=== PATIENT | female | born 1975 | race Caucasian/White ===

== ENCOUNTER 2024-02-04 06:00 | Day surgery (SDC) | payer OTHER, SELFPAY ==
[2024-02-04] MEDS: Lactated Ringers 1,000 ML 15 ML IV (06:29)
[2024-02-04 06:30] VITALS: BP 165/85; PULSE 82; RESP 16; TEMP 36.1; O2SAT 99; BMI 27.5
--- NOTE | 2024-02-04 07:11 | PCM.HP.BLA ---
History and Physical Date of Admission: 02/04/24 [facility] [address] [place] [address] OFFICE VISIT Date of Service: 12/18/23 MR#: [id number] Acct: [id number] Name: ELSIE HOWE Rep #: [id number] : 1975 Provider: Dr. Elia Fair DO Age/Sex: 48/F Location[place] [facility] [place] Status: Signed Intake Vital Signs 12/18/2407:35 Height 5 ft 3 in Weight: 166 lb 2 oz BMI 29.4 Intake Visit Reasons: RIGHT WRIST Accompanied by: Self Is patient in pain?: Yes Pain scale (1-10): 4 Allergies No Known Allergies Allergy (Unverified 12/18/23 08:41) Medications certolizumab pegol 400 mg/2 mL (200 mg/mL x2) subcutaneous syringe kit (Cimzia) 200 mg subcut Q2W 12/18/23 [History Confirmed 12/18/23] folic acid 1 mg tablet 1 mg PO BID 12/18/23 [History Confirmed 12/18/23] methotrexate sodium 2.5 mg tablet mg PO 5XW 12/18/23 [History Confirmed 12/18/23] PFSH Family History (Updated 12/18/23 @ 08:43 by Shakira Jones) Grandmother Arthritis Social History household members: other details: Roommate Smoking Status: Current every day smoker Smokeless tobacco user: other alcohol intake: current alcohol intake frequency: a few times a week HPI RIGHT WRIST Details: This documentation accurately reflects the service provided and the decisions made by me, Dr. Elia Fair, 12/18/23 0758. Part of today?s visit was documented by Shakira Queen ATC, acting as scribe. ELSIE HOWE is a 48 year old F here today for right wrist pain. Patient states this has been bothering her for about over a year but is gradually getting worse. Patient does get numbness and tingling that is mainly in the thumb, index and middle finger. She denies any numbness/tingling into the forearm at all. She does have itchiness in the palm of the hand into the fingers. She states she wears wrist braces on both wrists when she is sleeping. She states the braces does give her some relief as it keeps it from falling asleep and going numb as bad. She was referred by Dr. Lundy. She did have an EMG done at [place]. The right wrist is much worse. she is RHD.She denies any physical therapy for the wrists. She has had previous injections in the right wrist but none recently. She states she does have some shoulder issues as well. She denies any previous injury or surgery to the wrist at all. Patient is right hand dominant. She did have a prescription for medical marijuana but it and then she takes Aleve when needed for pain. She did recently get an injection in the left carpal tunnel by Dr. Conley Patient has been bracing at night for over a year now, it does provide some relief. Ortho Exam General General: Yes no acute distress Neurologic: Yes alert and Yes oriented x3 Psychologic: Yes reasonable and appropriate Right Wrist/Hand Skin/Wound: Yes CDI, No Swelling, No Ecchymosis and Yes capillary refill normal Right Wrist: Yes ROM-Extension 0-60 (85), ROM-Flexion 0-80 (80), ROM-Pronation 0-80, ROM-Supination 0-90, Durken's Test and Phalen's; No Tinel's WRIST: no atrophy noted wrist ext 85 wrist flex 80 Left Wrist/Hand Skin/Wound: No Swelling, No Ecchymosis and Yes capillary refill normal Left Wrist: Yes ROM-Extension 0-60, Yes ROM-Flexion 0-80, Yes ROM-Pronation 0-80, Yes ROM-Supination 0-90, Yes Durken's Test and Yes Phalen's; No Tinel's, No Thenar Atrophy and No Hypothenar Atrophy Head: Normocephalic Atraumatic Chest: symmetrical rise, non-labored breathing, no audible wheeze Abdomen: no guarding, non-rigid Supplemental Info 12/06/2023 EMG bilateral upper extremity: Right absent median sensory response at the thumb and prolonged latency median nerve motor response consistent with moderate to severe carpal tunnel. Left prolonged latency of the median motor and sensory responses consistent with moderate left carpal tunnel. Coding Level of Care Code Off vis,new,level 3 Diagnoses Carpal tunnel syndrome, bilateral G56.03 Assessment and Plan Assessment and Plan (1) Carpal tunnel syndrome, bilateral: Status: Acute Medications: New folic acid 1 mg PO BID methotrexate sodium PO 5XW Plan EMG shows that she has severe carpal tunnel in the right wrist. Because of the severity and how long it has bothered her we recommend going forward with the carpal tunnel surgery. Explained the surgery to the patient and what the procedure would be like. Risk benefits and alternative of surgery including risk of bleeding infection nerve artery tissue damage need for further surgery continued pain incisional hypersensitivity and continued symptoms are risk, I explained is not uncommon to have soreness in the area for 3 to 4 months after the surgery, explained most people do not need therapy unless the fingers get really stiff, then she would need to go to physical therapy, she is able to stretch out the fingers and make a fist, doing this right away tends to make recovery quicker, cannot lift anything over 0.5pound for the first 2 weeks, then 5 pounds for 1 week. She should be prepared for 6 weeks of restrictions with her job since she does lift a lot. If she would like to have the other wrist done at a later point she could go forward with that. She does have rheumatoid arthritis and is on methotrexate which she can continue through surgery however I would like to her to stop her Cimzia 4 weeks before surgery her next dose will be 12/29/2023 as this is given every 2 weeks she can take this dose but then will hold the medication until 2 weeks postoperatively we will tentatively schedule surgery February 04, 2024. I did instruct her to discuss holding this medication and make sure is okay with Dr. Conley when she sees her in the beginning of January. Explained the surgery is out patient procedure and she would need a ride home after surgery. Follow up in 2 weeks postop or sooner if pain, swelling, numbness or associated symptoms, or concerns develop. All questions answered. Patient in agreement of plan. 12/18/23 0922 <Electronically signed by Elia Fair DO> Date Elia Fair DO Cosigner Signature: Date (if applicable) I have examined the patient and the H&P has been reviewed. There are no clinical changes since date of exam.
[2024-02-04] MEDS: Cefazolin 2 GM in 0.9% Normal Saline (100mL Bag) 100 ML IV (07:23)
[2024-02-04] MEDS: Bupiv/Epi 0.25% 30 ML Vial (07:42)
[2024-02-04 07:53] VITALS: BP 142/74; BP 165/85; PULSE 72; RESP 18; TEMP 36.5; O2SAT 99
--- NOTE | 2024-02-04 07:53 | OP.PCM_ITS ---
Operative Report Date of Procedure: 02/04/24 Preoperative diagnosis; right carpal tunnel syndrome Postoperative diagnosis; same Procedure: Right open carpal tunnel release Anesthesia: Local with MAC Tourniquet time; 11 minutes 250 mm Hg Complications: None Indication for procedure; This is a 48-year-old female with long-standing s ymptoms consistent with carpal tunnel syndrome the patient did have electrodiagnostic evidence of this and has failed conservative treatment. Risks benefits and alternatives were reviewed including risks of bleeding infection nerve artery tissue damage need for further surgery and continued pain and symptoms, hypersensitivity to scar and Pillar pain. Procedure; The patient was met in the preoperative holding area the operative extremity was identified by both patient and physician and was marked the patient was met by anesthesia and brought back to the operating room and transferred to the operating table in the supine position. Anesthesia was started. A well-padded tourniquet was placed on the operative upper extremity. The patient was prepped and draped in the usual sterile fashion. A timeout was called to ensure the proper patient procedure and extremity were being contemplated. 0.5 percent lidocaine with epinephrine was injected into the incisional area. An Esmarch was used to exsanguinate the extremity. The tourniquet was inflated to 250 mmHg. A midline incision was made with a 15 blade scalpel between the thenar and hypothenar eminence. This was carried down through the skin and subcutaneous tissue. Anne Marie retractors were then used, a deep blade scalpel was used to make a deep incision in the palmar aponeurosis. The anne marie retractors were then placed deep to this and the transverse carpal ligament was identified a perforation was made with a scalpel and a Littler scissors were used to complete the release of the transverse carpal ligament distally under direct visualization with the tips facing ulnarly until the perivascular fat was reached. Then turning our attention proximally using a tension slide technique the proximal extent of the transverse carpal ligament was released . There was noted to be hourglass configuration to the median nerve and hypertrophy of the transverse carpal ligament without other findings. The wound was thoroughly irrigated and was closed with 4-0 nylon vertical mattress stitches. Dressing was applied in the form of xeroform 4 x 4, web roll and an ronan wrap. Tourniquet was let down there is no intraoperative complications patient tolerated the procedure well and was transferred to the PACU. All counts were correct.
--- NOTE | 2024-02-04 07:54 | DCINST_ITS ---
Discharge Instructions Diet Discharge Diet: No restrictions Dressing / Incision Call your doctor if you observe: Shortness of breath and Chest pain Additional Dressing/Incision Instructions:: Ice and elevate operative extremity next 72 hours. Keep dressing on clean and dry for 48 hours then may remove and allow warm soapy water to rinse over incision but do not submerge until sutures are out. Then apply bandaid over incision and change daily. encourage finger range of motion. Not lift more than 1/2 pound. Minimize narcotic use only as needed and directed, may use OTC NSAID and Tylenol to supplement/substitute for pain control. Follow Up Care Please Follow Up With: Elia Fair DO When: 2 weeks Test Results: Test results from this visit will be discussed in further detail at your follow- up appointment, if applicable. Discharge Plan Admission Primary Reason for Your Visit: Right carpal tunnel release Attending Provider: Elia Fair Primary Care Provider: Olya Rodgers Discharge Orders/Prescriptions Prescriptions: New oxycodone 5 mg tablet 5 - 10 mg PO Q4H PRN (Reason: pain) 3 Days Qty: 10 0RF cephalexin [cephalexin] 500 mg capsule 1,000 mg PO Q8 Qty: 4 0RF Rx Instructions: take 2 tabs at 8:00 pm and 2 tabs after 5 am when you wake up Continued folic acid 1 mg tablet 1 mg PO BID methotrexate sodium 2.5 mg tablet 12.5 mg PO BONILLA Held Cimzia 400 mg/2 mL (200 mg/mL x 2) syringe kit 200 mg subcut Q2W Hold Instructions: Resume on 02/18/24. Patient Comments: STOPPPED TEMPORARILY FOR SURGERY Referrals / Follow Up: Olya Rodgers DO [Primary Care Provider] - Disposition Disposition (needs filled in before D/C Order can be placed): Home, Self Care
[2024-02-04 07:55] VITALS: BP 133/73; BP 165/85; PULSE 66; RESP 16; O2SAT 98
[2024-02-04 08:03] VITALS: BP 139/68; BP 165/85; PULSE 68; RESP 18; O2SAT 99
[2024-02-04 08:09] VITALS: BP 149/61; BP 165/85; PULSE 63; RESP 18; TEMP 36.3; O2SAT 98
== END 2024-02-04 09:03 | disposition home or self-care (01) ==
LOC: SDC 06:00 → AC 06:01
PROVIDERS: PCP Family Medicine; Referring Provider Orthopaedic Surgery; Visit Provider Orthopaedic Surgery
PROC: (CPT 64721; principal; 2024-02-04 07:15)
DX: G56.03 Carpal tunnel syndrome, bilateral upper limbs (principal); F17.290 Nicotine dependence, other tobacco product, uncomplicated
CPT/HCPCS: 64721; 01810; J7120

== ENCOUNTER 2024-03-10 05:54 | Day surgery (SDC) | payer OTHER, SELFPAY ==
[2024-03-10 06:16] VITALS: BP 139/80; PULSE 73; RESP 16; TEMP 36.3; O2SAT 100; BMI 29.5
[2024-03-10] MEDS: Lactated Ringers 1,000 ML 15 ML IV (06:19)
--- NOTE | 2024-03-10 07:11 | HP.PCM_ITS ---
History and Physical Date of Admission: 03/10/24 [facility] [address] [place] [address] OFFICE VISIT Date of Service: 02/17/24 MR#: [id number] Acct: [id number] Name: ELSIE HOWE Rep #: [id number] : 1975 Provider: Dr. Elia Fair DO Age/Sex: 48/F Location: [facility] [place] Status: Signed Intake Vital Signs 12/18/2407:35 02/03/2406:30 Height 5 ft 3 in 5 ft 4 in Intake Visit Reasons: right wrist Is patient in pain?: No Allergies No Known Allergies Allergy (Verified 02/17/24 09:06) Medications certolizumab pegol 400 mg/2 mL (200 mg/mL x2) subcutaneous syringe kit (Cimzia) 200 mg subcut Q2W 12/18/23 [History Confirmed 02/17/24] folic acid 1 mg tablet 1 mg PO BID 12/18/23 [History Confirmed 02/17/24] methotrexate sodium 2.5 mg tablet 12.5 mg PO BONILLA 12/18/23 [History Confirmed 02/17/24] PFSH Medical History (Updated 02/04/24 @ 07:[address] Elia Fair DO) Alcohol use Anxiety History of edema Lupus Post-menopausal Rheumatoid arthritis Smoker Wears contact lenses Surgical History (Updated 01/28/24 @ 08:11 by Zohreh Salas) No history of previous surgery Family History Grandmother Arthritis Social History household members: other details: Roommate Smoking Status: Current every day smoker tobacco type: e-cigarettes Smokeless tobacco user: other alcohol intake: current alcohol intake frequency: a few times a week HPI right wrist Details: This documentation accurately reflects the service provided and the decisions made by me, Dr. Elia Fair DO 02/17/24 0803. Part of today?s visit was documented by Betzy Escamilla ATC, acting as scribe. ELSIE HOWE is a 48 year old F here today for s/p Right open carpal tunnel release dos 02/04/24. Patient notes that she is doing very well. Patient denies any pain currently. She denies any numbness or tingling. Patient notes that her incision is healing with no redness or drainage. She denies any pain medicaitons. Patient would also like to discuss her left wrist she has similar symptoms in the left. Ortho Exam General General: Yes no acute distress Neurologic: Yes alert and Yes oriented x3 Psychologic: Yes reasonable and appropriate Right Wrist/Hand Skin/Wound: Yes healing, Yes suture/paula removed, No Swelling and No Ecchymosis WRIST: good finger and wrist range of motion Left Wrist/Hand Skin/Wound: No Swelling, No Ecchymosis and Yes capillary refill normal Left Wrist: Yes ROM-Extension 0-60, Yes ROM-Flexion 0-80, Yes ROM-Pronation 0-8 0, Yes ROM-Supination 0-90, Yes Durken's Test and Yes Phalen's; No Tinel's, No Thenar Atrophy and No Hypothenar Atrophy Right Foot/Ankle Skin/Wound: Yes suture/paula removed Head: Normocephalic Atraumatic Chest: symmetrical rise, non-labored breathing, no audible wheeze Abdomen: no guarding, non-rigid Supplemental Info 12/06/2023 EMG bilateral upper extremity: Right absent median sensory response at the thumb and prolonged latency median nerve motor response consistent with moderate to severe carpal tunnel. Left prolonged latency of the median motor and sensory responses consistent with moderate left carpal tunnel. Coding Level of Care Code Off vis,est,level 3 Diagnoses Carpal tunnel syndrome, bilateral G56.03 Assessment and Plan Assessment and Plan (1) Carpal tunnel syndrome, bilateral: Status: Acute Plan She might continue to have soreness over the incision. She is able to lift 5 pounds for this week and then may progress to lifting as she tolerates. Patient should continue to wash her incision daily. Patient may proceed with a left carpal tunnel release. She would like to proceed at 6 weeks post op. We will schedule her for March 10. Follow up for 2 week post op or sooner if pain, swelling, numbness or associated symptoms, or concerns develop. All questions answered. Patient in agreement of plan. 02/17/24 0922 <Electronically signed by Elia Fair DO> Date Elia Manjula DO Bruno Signature: Date (if applicable) I have examined the patient and the H&P has been reviewed. There are no clinical changes since date of exam.
[2024-03-10] MEDS: Cefazolin 2 GM in 0.9% Normal Saline (100mL Bag) 100 ML IV (07:30)
[2024-03-10] MEDS: Bupiv/Epi 0.25% 30 ML Vial (07:53)
--- NOTE | 2024-03-10 08:01 | DCINST_ITS ---
Discharge Instructions Diet Discharge Diet: No restrictions Dressing / Incision Call your doctor if you observe: Shortness of breath and Chest pain Additional Dressing/Incision Instructions:: Ice and elevate operative extremity next 72 hours. Keep dressing on clean and dry for 48 hours then may remove and allow warm soapy water to rinse over incision but do not submerge until sutures are out. Then apply bandaid over incision and change daily. encourage finger range of motion. Not lift more than 1/2 pound. Minimize narcotic use only as needed and directed, may use OTC NSAID and Tylenol to supplement/substitute for pain control. Follow Up Care Please Follow Up With: Elia Fair DO When: 2 weeks Test Results: Test results from this visit will be discussed in further detail at your follow- up appointment, if applicable. Discharge Plan Admission Primary Reason for Your Visit: Left carpal tunnel release Attending Provider: Elia Fair Primary Care Provider: Olya Rodgers Instructions Print Language: Uzbek Discharge Orders/Prescriptions Prescriptions: New oxycodone 5 mg tablet 5 - 10 mg PO Q4H PRN (Reason: pain) 3 Days Qty: 10 0RF Held Cimzia 400 mg/2 mL (200 mg/mL x 2) syringe kit 200 mg subcut Q2W Hold Instructions: Resume on 03/25/24. Patient Comments: STOPPPED TEMPORARILY FOR SURGERY No Action folic acid 1 mg tablet 2 mg PO DAILY methotrexate sodium 2.5 mg tablet 12.5 mg PO BONILLA Referrals / Follow Up: Olya Rodgers DO [Primary Care Provider] - Disposition Disposition (needs filled in before D/C Order can be placed): Home, Self Care
--- NOTE | 2024-03-10 08:01 | OP.PCM_ITS ---
Operative Report Date of Procedure: 03/10/24 Preoperative diagnosis; left carpal tunnel syndrome Postoperative diagnosis; same Procedure: Left open carpal tunnel release Anesthesia: Local with MAC Tourniquet time; 10 minutes 250 mm Hg Complications: None Indication for procedure; This is a 49-year-old female with long-standing sym ptoms consistent with carpal tunnel syndrome the patient did have electrodiagnostic evidence of this and has failed conservative treatment. Risks benefits and alternatives were reviewed including risks of bleeding infection nerve artery tissue damage need for further surgery and continued pain and symptoms, hypersensitivity to scar and Pillar pain. Procedure; The patient was met in the preoperative holding area the operative extremity was identified by both patient and physician and was marked the patient was met by anesthesia and brought back to the operating room and transferred to the operating table in the supine position. Anesthesia was started. A well-padded tourniquet was placed on the operative upper extremity. The patient was prepped and draped in the usual sterile fashion. A timeout was called to ensure the proper patient procedure and extremity were being contemplated. 0.5 percent lidocaine with epinephrine was injected into the incisional area. An Esmarch was used to exsanguinate the extremity. The tourniquet was inflated to 250 mmHg. A midline incision was made with a 15 blade scalpel between the thenar and hypothenar eminence. This was carried down through the skin and subcutaneous tissue. Anne Marie retractors were then used, a deep blade scalpel was used to make a deep incision in the palmar aponeurosis. The anne marie retractors were then placed deep to this and the transverse carpal ligament was identified a perforation was made with a scalpel and a Littler scissors were used to complete the release of the transverse carpal ligament distally under direct visualization with the tips facing ulnarly until the perivascular fat was reached. Then turning our attention proximally using a tension slide technique the proximal extent of the transverse carpal ligament was released . There was noted to be hypertrophy of the transverse carpal ligament without other findings. The wound was thoroughly irrigated and was closed with 4-0 nylon vertical mattress stitches. Dressing was applied in the form of xeroform 4 x 4, web roll and an ronan wrap. Tourniquet was let down there is no intraoperative complications patient tolerated the procedure well and was transferred to the PACU. All counts were correct.
[2024-03-10 08:05] VITALS: BP 116/67; BP 139/80; PULSE 62; RESP 18; TEMP 36.1; O2SAT 100
[2024-03-10 08:10] VITALS: BP 129/68; BP 139/80; PULSE 59; RESP 18; O2SAT 100
[2024-03-10 08:15] VITALS: BP 134/74; BP 139/80; PULSE 53; RESP 16; TEMP 36.1; O2SAT 100
[2024-03-10 08:39] VITALS: BP 139/80
== END 2024-03-10 08:40 | disposition home or self-care (01) ==
LOC: SDC 05:54 → AC 05:56
PROVIDERS: PCP Family Medicine; Referring Provider Orthopaedic Surgery; Visit Provider Orthopaedic Surgery
PROC: (CPT 64721; principal; 2024-03-10 07:15)
DX: G56.03 Carpal tunnel syndrome, bilateral upper limbs (principal); F17.290 Nicotine dependence, other tobacco product, uncomplicated
CPT/HCPCS: 64721; 01810; J7120

== ENCOUNTER → 2025-02-27 | Outpatient (CLI) | payer OTHER, SELFPAY ==
--- NOTE | 2025-02-27 08:00 | MRI_ITS ---
PROCEDURE: UPPER EXT JOINT ONLY(ROUTINE) 02/27/2025 REASON FOR EXAM: PAIN TECHNIQUE: MRI of the upper Extremity. Multiplanar and multisequence images were obtained without IV contrast administration. COMPARISON: COMPARISON : FINDINGS: The supraspinatus tendon shows intrasubstance high signal with total interruption of its fibers forming a gap measuring about 3.6 cm in width. Thickening and intrasubstance high signal of the subscapularis tendon with partial fibers interruption. Intrasubstance high signal of the infraspinatus tendon with no evidence of complete fibers interruption. The teres minor tendon appears intact. High signal of the long head of biceps tendon with ill definition intra- articular segment. Fluid signal distending its sheath. No obvious glenoid labral tears. Advanced degenerative arthropathic changes of the acromioclavicular joint evident by marginal osteophytic lipping, cortical irregularities and subcortical marrow edema of its opposing articular surfaces with hypertrophied edematous joint capsule. Marginal lipping of the glenohumeral articular surface with mild superior subluxation of the humeral head. Mild glenohumeral joint effusion Fluid signal distending the subcoracoid and subacromial/subdeltoid bursa. Thickening and edema signal of the rotator interval capsule and inferior glenohumeral ligament. Focal cortical irregularities and subcortical pseudocysts & marrow edema of the humeral head/greater tuberosity. No marrow infiltrative lesions. The neurovascular bundles appear unremarkable. 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 Supraspinatus tendonitis with full thickness tear. Subscapularis tendonitis with partial thickness tear. Infraspinatus tendonitis. Tear on top of tendonitis of the long head of biceps tendon. Glenohumeral degenerative arthropathy with joint effusion & subcoracoid and sub acromial/subdeltoid bursitis. Reading [facility] [address]
== END | disposition home or self-care (01) ==
LOC: MRI 07:29
PROVIDERS: PCP Family Medicine; Referring Provider Orthopaedic Surgery; Visit Provider Orthopaedic Surgery
DX: M25.511 Pain in right shoulder (principal)
CPT/HCPCS: 73221

== ENCOUNTER 2025-04-21 06:24 | Day surgery (SDC) | payer OTHER, SELFPAY ==
--- NOTE | 2025-04-13 08:42 | EKG12_ITS ---
Test Reason : PREOP Blood Pressure : */* mmHG Vent. Rate : 75 BPM Atrial Rate : 75 BPM P-R Int : 142 ms QRS Dur : 80 ms QT Int : 388 ms P-R-T Axes : 68 52 11 degrees QTcB Int : 433 ms Normal sinus rhythm Possible Left atrial enlargement Borderline ECG Confirmed by SUSAN DWYER, LIZANDRO ([id number]), editor at large LIBRADO GARCÍA ([id number]) on 04/14/2025 7:12:25 AM Referred By: Dilip Hope Confirmed By: LIZANDRO DAVIS MD
--- NOTE | 2025-04-13 20:50 | PAT.ANESEVAL ---
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 When Was Last Pacemaker Check QUESTION #4 FULL TEXT: You/Your Family Experience fever (hyperthermia) with Anesthesia Last Oral Intake Last Oral intake: Last Oral Intake NPO since Meds taken in AM with sips of water? Meds patient instructed to take am of surgery PONV PONV - spray machine loader: PONV - spray machine loader Female Yes 04/07/25 08:09 HX of Motion Sickness No 04/07/25 08:09 HX of N/V After Surgery No 04/07/25 08:09 Non-Smoker No 04/07/25 08:09 Duration of Surgery greater Yes 04/07/25 08:09 than 60 minutes Number of Risk Factors 2 04/07/25 08:09 PONV Score Moderate Risk 04/07/25 08:09 Height & Weight Height & Weight: Anesthesia: Height & Weight Height 5 ft 4 in 03/15/25 08:58 Respiratory Assessment Respiratory Assessment - spray machine loader: Respiratory Tract Infection Hx - spray machine loader Hx Respiratory Tract Infection No 04/07/25 08:09 STOP Sleep Apnea STOP Sleep Apnea - spray machine loader: STOP Sleep Apnea - spray machine loader Hx Hypertension No 04/07/25 08:09 Hx Sleep Apnea No 04/07/25 08:09 CPAP BIPAP Do you snore loudly (louder No 04/07/25 08:09 than talking or can be heard Do you often feel tired/ No 04/07/25 08:09 fatigued/ sleepy during daytime? Has anyone observed you stop No 04/07/25 08:09 breathing during sleep? STOP Results Negative 04/07/25 08:09 QUESTION #5 FULL TEXT : Do you snore loudly (louder than talking or can be heard through closed doors)? 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 Specify any problems Hx of Preganancy in last 3 No 04/07/25 08:09 Months Nurse Filling Out Transfusion VCHRISTIN 04/07/25 08:09 & Questions: Date: 04/07/25 04/07/25 08:09 Time: 08:10 04/07/25 08:09 Patient unable to answer at this time (ie. confused, unrespo /Reproduction History /Reproductive History - spray machine loader: /Reproductive Hx- spray machine loader Hx Now No 04/07/25 08:09 Gestational Age (in weeks): EDC: Hx Hx Para Hx Section SAB No 04/07/25 08:09 PFSH Medical History Wears contact lenses Post-menopausal Anxiety Alcohol use Rheumatoid arthritis Lupus Smoker History of edema Home Medications ?Medication ?Instructions ?Recorded ?Last Taken ?Type certolizumab pegol 400 mg/2 mL 200 mg subcut Q2W 12/18/23 03/28/25 History (200 mg/mL x2) subcutaneous syringe kit (Cimzia) Held on 03/10/24. Instructions: Resume on 03/25/24. folic acid 1 mg tablet 2 mg PO DAILY 12/18/23 Unknown History methotrexate sodium 2.5 mg tablet 12.5 mg PO BONILLA 12/18/23 03/28/25 History prednisone 10 mg tablet 10 mg PO QDAY PRN RA 01/04/25 Unknown History tramadol 50 mg tablet 50 mg PO TID PRN pain 01/04/25 Unknown History Allergy/AdvReac Type Severity Reaction Status Date / Time No Known Allergies Allergy Verified 04/07/25 08:05 Family History Grandmother Arthritis Surgical History (Updated 04/07/25 @ 08:09 by Kristin Brown) History of carpal tunnel surgery of left wrist History of carpal tunnel surgery of right wrist Social History household members: other details: Roommate Smoking Status: Current every day smoker tobacco type: e-cigarettes Smokeless tobacco user: other alcohol intake: current alcohol intake frequency: a few times a week Audit: Pertinent Findings Pertinent Findings EKG Perinent findings: April 13, 2025. Normal sinus rhythm. Possible left atrial enlargement. Recommendation Anesthesia Recommendation Anesthesia recommendation: OPTIMIZED for anesthesia
[2025-04-21] VITALS (7 sets, daily range): BP systolic 139–149; BP diastolic 77–94; PULSE 72–89; RESP 16–18; TEMP 36.1–36.9; O2SAT 96–100; BMI 31.4
--- OUTSIDE RECORDS SUMMARY | 2025-04-21 06:27 | XMS RPT_ITS | CCD ---
Author Organization [facility] Care Team Providers Care Proposal Manager Name Role Phone KELLI LANCE DO Primary Care Physician ([phone] Dr. Elia Fair Attending Provider [phone]) Dr. Elia Fair Referring Provider [phone]) Dr. Elia Fair Other Provider [phone])- Dr. Kelli Lance Primary Care Provider KELLI LANCE DO Primary Care Physician ([phone]) KELLI LANCE DO Primary Care Unavailable PREETI DWYER, DR ARANDA Attending Manuel CONLEY MD, DR ARANDA Attending UnavailKELLI Meyers DO Primary Care Unavailable Dr. Kelli Lance DO Primary Care Provider [phone] Dr. Kelli Lance DO Referring Provider Dr. Elia Fair DO Attending Provider Dr. Curry Castrejon MD Attending Provider [phone] Dr. Elia Fair DO Referring Provider PREETI DWYER, DR ARANDA Attending UnavailKELLI Meyers DO Primary Care Unavailable Dilip Hope MD Attending Provider [phone] Elia Fair Attending Unavailable Kelli Lance Primary Care Unavailable Kelli Lance Referring Unavailable Kelli Lance Primary Care Unavailable Curyr Castrejon Attending Unavailable Elia Fair Attending Unavailable Kelli Lance Referring Unavailable Kelli Lance Primary Care Unavailable Elia Fair Attending Unavailable Kelli Lance Primary Care Unavailable Kelli Lance Referring Unavailable Dilip Hope Attending Unavailable Kelli Lance Referring Unavailable Kelli Lance Primary Care Unavailable Dilip Hope Attending Unavailable Dilip Hope Referring Unavailable Henrry Miller Consulting Unavailable Kelli Lance Primary Care Unavailable Elia Fair Attending Unavailable Elia Fair Referring Unavailable Kelli Lance Primary Care Unavailable Medications Current Medications Medication Drug Class(es) Dates Sig (Normalized) Sig (Original) 1 ml abatacept 125 mg/ml auto-injector (3 sources) Selective T Cell Costimulation Modulator Start: 04-24-2019 Orencia ClickJect 125 mg/mL subcutaneous solution Dose = 125 mg, Subcutaneous, qWeek, (rotate injection sites), 4 EA, 0 Refill(s), Syringe Start Date: 04/24/19 Status: Ordered Start: 04-24-2019 Orencia ClickJ ect 125 mg/mL subcutaneous solution Dose = 125 mg, Subcutaneous, qWeek, (rotate injection sites), 4 EA, 0 Refill(s), Syringe Start Date: 04/24/19 Status: Ordered 24 hr buPROPion hydrochloride 300 mg extended release oral tablet (6 sources) Aminoketone Start: 04-17-2022 take 1 tablet by mouth every hour, then take 1 tablet by mouth once daily in the evening buPROPion 150 mg/24 hours (XL) oral tablet, extended release Dose : 150 mg = 1 tab(s), Oral, qDay, in evening., # 90 tab(s), 3 Refill(s), Pharmacy: [facility] ([facility]), Depression, 161.5, cm, 04/17/22 8:02:00 EDT, Height, kg, 04/17/22 8:02:00 EDT, Dosing Weight Start Date: 04/17/22 Status: Ordered Start: 04-17-2022 take 1 tablet by demarcus th every hour, then take 1 tablet by mouth once daily in the morning buPROPion 300 mg/24 hours (XL) oral tablet, extended release Dose : 300 mg = 1 tab(s), Oral, qDay, in morning, # 90 tab(s), 1 Refill(s), Pharmacy: [facility] ([facility]), Depression, 161.5, cm, 04/17/22 8:02:00 EDT, Height, kg, 04/17/22 8:02:00 EDT, Dosing Weight Start Date: 04/17/22 Status: Ordered Start: 04-25-2021 take 1 tablet by demarcus th every hour, then take 1 tablet by mouth once daily in the evening buPROPion 150 mg/24 hours (XL) oral tablet, extended release Dose : 150 mg = 1 tab(s), Oral, qDay, in evening., # 90 tab(s), 1 Refill(s), Pharmacy: [facility]/pharmacy #[id number], Depression, 162.4, cm, 04/25/21 8:47:00 EDT, Height, kg, 04/25/21 8:47:00 EDT, Dosing Weight Start Date: 04/25/21 Status: Ordered Start: 04-25-2021 take 1 tablet by demarcus th every hour, then take 1 tablet by mouth once daily in the morning buPROPion 300 mg/24 hours (XL) oral tablet, extended release Dose : 300 mg = 1 tab(s), Oral, qDay, in morning, # 90 tab(s), 1 Refill(s), Pharmacy: [facility]/pharmacy #[id number], Depression, 162.4, cm, 04/25/21 8:47:00 EDT, Height, kg, 04/25/21 8:47:00 EDT, Dosing Weight Start Date: 04/25/21 Status: Ordered busPIRone hydrochloride 15 m g oral tablet (3 sources) Start: 04-17-2022 busPIRone 15 m g oral tablet Dose : 15 mg = 1 tab(s), Oral, TID, # 270 tab(s), 1 Refill(s), Pharmacy: [facility] ([facility]), Anxiety, 161.5, cm, 04/17/22 8:02:00 EDT, Height, kg, 04/17/22 8:02:00 EDT, Dosing Weight Start Date: 04/17/22 Status: Ordered Start: 04-25-2021 busPIRone 15 m g oral tablet Dose : 15 mg = 1 tab(s), Oral, TID, # 270 tab(s), 1 Refill(s), Pharmacy: [facility]/pharmacy #[id number], Anxiety, 162.4, cm, 04/25/21 8:47:00 EDT, Height, kg, 04/25/21 8:47:00 EDT, Dosing Weight Start Date: 04/25/21 Status: Ordered 1 ml certolizumab pegol 200 mg/ml prefilled syringe (4 sources) Start: 12-18-2023 Certolizumab P egol (Cimzia) 400 mg/2 mL (200 mg/mL x 2) syringe kit Active 200 mg SC every 2 weeks December 18, 2023 12:00am On Hold: Resume on 03/25/24. folic acid 1 mg oral tablet (11 sources) Start: 12-18-2023 take 2 tablets by mouth once daily Folic Acid 1 mg tablet Active 2 mg PO DAILY December 18, 2023 9:03am Start: 12-18-2023 End: 12-18-2023 take 1 tablet by mouth once daily Folic Acid 1 mg tablet Discontinued 1 mg PO DAILY December 18, 2023 12:00am December 18, 2023 9:05am Start: 04-24-2019 take 1 mg by mouth twice daily Folic Acid Active 1 MG PO TWICE A DAY December 18, 2023 9:03am loratadine 10 mg oral tablet (3 sources) Start: 10-25-2020 loratadine 10 mg oral tablet Dose : 10 mg = 1 tab(s), Oral, qDay, # 30 tab(s), 0 Refill(s) Start Date: 10/25/20 Status: Ordered medical marijuana (3 sources) Start: 04-27-2020 medical mariju [place] [facility] marijuana, daily, 0 Refill(s), 111.7 Start Date: 04/27/20 Status: Ordered methotrexate 2.5 mg oral tablet (11 sources) Folate Analog Metabolic Inhibitor Start: 12-18-2023 Methotrexate Sodium Active 12.5 MG PO BONILLA December 18, 2023 9:04am Start: 12-18-2023 End: 12-18-2023 take 1 mg by mouth once daily Methotrexate Sodium 2.5 mg tablet Discontinued mg PO DAILY December 18, 2023 12:00am December 18, 2023 9:05am Start: 12-18-2023 End: 12-18-2023 take 1 mg by mouth once daily Methotrexate Sodium Disc ontinued MG PO DAILY December 18, 2023 12:00am December 18, 2023 9:05am Start: 04-24-2019 Methotrexate S odium 2.5 mg tablet Active 12.5 mg PO BONILLA December 18, 2023 9:04am predniSONE 10 mg oral tablet (6 sources) Start: 01-04-2025 take 1 tablet by mouth once daily Prednisone 10 mg tablet Active 10 mg PO daily January 04, 2025 12:00am Start: 10-25-2020 take 1 tablet by demarcus once daily as needed predniSONE 10 mg oral tablet TAKE 1 TABLET BY MOUTH EVERY DAY NEEDED TAKE FOR 3 TO 5 DAYS WITH A FLARE Start Date: 10/25/20 Status: Ordered traMADol hydrochloride 50 mg oral tablet (4 sources) Opioid Agonist Start: 01-04-2025 take 1 tablet by mouth three times daily as needed Tramadol 50 mg tablet Active 50 mg PO THREE TIMES A DAY as needed January 04, 2025 12:00am Start: 10-25-2020 take 1 tablet by demarcus three times daily as needed traMADol 50 mg oral tablet TAKE 1 TABLET BY MOUTH 3 TIMES A DAY NEEDED FOR 30 DAYS Start Date: 10/25/20 Status: Ordered Completed/Discontinued Medications Medication Drug Class(es) Dates Sig (Normalized) Sig (Original) cephalexin 500 mg oral capsule (4 sources) Cephalosporin Antibacterial Start: 02-04-2024 End: 02-17-2024 Cephalexin 500 mg capsule Discontinued 1000 mg PO EVERY 8 HOURS February 04, 2024 12:00am February 17, 2024 9:06am take 2 tabs at 8:00 pm and 2 tabs after 5 am when you wake up Start: 02-04-2024 Cephalexin Act uday 1000 MG PO EVERY 8 HOURS February 04, 2024 12:00am take 2 tabs at 8:00 pm and 2 tabs after 5 am when you wake up oxyCODONE hydrochloride 5 mg oral tablet (7 sources) Opioid Agonist Start: 03-10-2024 End: 03-27-2024 take 5-10 mg by mouth every four hours as needed for pain Oxycodone 5 mg tablet Discontinued 5 - 10 mg PO Q4H as needed for pain 10 March 10, 2024 March 27, 2024 9:08am Start: 02-04-2024 End: 02-17-2024 take 5-10 mg by mouth every four hours as needed for pain Oxycodone 5 mg tablet Discontinued 5 - 10 mg PO Q4H as needed for pain 10 3 February 04, 2024 February 17, 2024 9:06am Problems Active Problems Problem Classification Problem Date Documented Date Episodic/Chronic Anxiety disorders (4 sources) Anxiety disorder; Translations: [Anxiety disorder, unspecified] Chronic Mood disorders (3 sources) Depressive disorder 04-24-2019 Chronic Other aftercare (2 sources) Long-term current use of drug therapy; Translations: [Other half-way (current) drug therapy] Episodic Other aftercare (3 sources) Follow-up status; Translations: [Encounter for other orthopedic aftercare] 03-27-2024 Episodic Other connective tissue disease (2 sources) Impingement syndrome of right shoulder region; Translations: [Impingement syndrome of right shoulder] Episodic Other connective tissue disease (1 source) Bursitis of right shoulder; Translations: [Bursitis of right shoulder] Episodic Other connective tissue disease (3 sources) Nontraumatic rotator cuff tear; Translations: [Unspecified rotator cuff tear or rupture of unspecified shoulder, not specified as traumatic] 03-08-2025 Episodic Other inflammatory condition of skin (10 sources) Lupus erythematosus; Translations: [Systemic lupus erythematosus] 04-24-2019 Chronic Other liver diseases (2 sources) Steatosis of liver; Translations: [Fatty (change of) liver, not elsewhere classified] Chronic Other nervous system disorders (4 sources) Carpal tunnel syndrome of right wrist; Translations: [Carpal tunnel syndrome, right upper limb] 12-18-2023 Chronic Other nervous system disorders (4 sources) Carpal tunnel syndrome; Translations: [Carpal tunnel syndrome, bilateral upper limbs] 12-18-2023 Chronic Other nervous system disorders (1 source) Carpal tunnel syndrome, bilateral upper limbs; Translations: [Carpal tunnel syndrome] 12-18-2023 Chronic Other nervous system disorders (4 sources) Acute postoperative pain; Translations: [Other acute postprocedural pain] 02-04-2024 Episodic Other non-traumatic joint disorders (1 source) Pain of right shoulder joint; Translations: [Pain in right shoulder] Episodic Other non-traumatic joint disorders (8 sources) Pain in right shoulder; Translations: [Right shoulder pain] Onset: 03-04-2025 01-04-2025 Episodic Residual codes; unclassified (3 sources) Needs influenza immunization 10-25-2020 Episodic Rheumatoid arthritis and related disease (13 sources) Rheumatoid arthritis; Translations: [Rheumatoid arthritis with rheumatoid factor of unspecified site without organ or systems involvement] Onset: 06-22-2024 Chronic Comment on above: ON MED Systemic lupus erythematosus and connective tissue disorders (2 sources) Sjogren's syndrome; Translations: [Sicca syndrome, unspecified] Chronic Unclassified (2 sources) Vaccination needed 10-24-2021 Past or Other Problems Problem Classification Problem Date Documented Da te Episodic/Chronic Other aftercare (1 source) Other half-way (current) drug therapy; Translations: [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 Dilip Hope MD Status: IA E [facility] Ordering Dr: Henrry Miller MD Date: 04/13/25 Location: [facility] Sex: F C Admitted: Test Reason : PREOP Blood Pressure : */* mmHG Vent. Rate : 75 BPM Atrial Rate : 75 BPM P-R Int : 142 ms QRS Dur : 80 ms QT Int : 388 ms P-R-T Axes : 68 52 11 degrees QTcB Int : 433 ms Normal sinus rhythm Possible Left atrial enlargement Borderline ECG Confirmed by CURRY CASTREJON MD ([id number]), continuity editor LIBRADO GARCÍA ([id number]) on 04/14/2025 7:12:25 AM Referred By: Dilip Hope Confirmed By: CURRY CASTREJON MD 04/14/25 0712 Date Curry Castrejon MD CC: Dr. Henrry Miller MD; Dr. Kelli Lance, DO; Dr. Dilip Hope MD Signed [facility] MR/PATDoris 04-13-2025 MR/PAT.TERESA [facility] Medical Records Department [address] [place] [address] PAT - Anesthesia 04/13/252049 MR#: [id number] Acct: [id number] Name: ELSIE HOWE Rep #: [id number] : 1975 50 From: Henrry Miller MD PCP: Dr. 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 When Was Last Pacemaker Check QUESTION #4 FULL TEXT: You/Your Family Experience fever (hyperthermia) with Anesthesia Last Oral Intake Last Oral intake: Last Oral Intake NPO since Meds taken in AM with sips of water? Meds patient instructed to take am of surgery PONV PONV - lift driver: PONV - lift driver Female Yes 04/07/25 08:09 HX of Motion Sickness No 04/07/25 08:09 HX of N/V After Surgery No 04/07/25 08:09 Non-Smoker No 04/07/25 08:09 Duration of Surgery greater Yes 04/07/25 08:09 than 60 minutes Number of Risk Factors 2 04/07/25 08:09 PONV Score Moderate Risk 04/07/25 08:09 Height Weight Height Weight: Anesthesia: Height Weight Height 5 ft 4 in 03/15/25 08:58 Respiratory Assessment Respiratory Assessment - lift driver: Respiratory Tract Infection Hx - lift driver Hx Respiratory Tract Infection No 04/07/25 08:09 STOP Sleep Apnea STOP Sleep Apnea - lift driver: STOP Sleep Apnea - lift driver Hx Hypertension No 04/07/25 08:09 Hx Sleep Apnea No 04/07/25 08:09 CPAP BIPAP Do you snore loudly (louder No 04/07/25 08:09 than talking or can be heard Do you often feel tired/ No 04/07/25 08:09 fatigued/ sleepy during daytime? Has anyone observed you stop No 04/07/25 08:09 breathing during sleep? STOP Results Negative 04/07/25 08:09 QUESTION #5 FULL TEXT : Do you snore loudly (louder than talking or can be heard through closed doors)? Tobacco Use History Tobacco Use History - lift driver: Tobacco Use History - lift driver Tobacco Use Smoking Status Current every day smoker 04/07/25 08:09 Hx Tobacco Use Yes 04/07/25 08:09 Years Smoking Packs Smoked per Day Smoking Cessation Date was within the last 15 years Hx Smoking Cessation Date Hx Smoking Cessation Counseling Hematologic Medial History Hematologic Hx - lift driver: Hematologic Medical Hx - intelligence clerk Hx of Blood Transfusion No 04/07/25 08:09 Hx of Transfusion in last 3 No 04/07/25 08:09 Months Date of Last Transfusion (if within last 3 months) Ever experience any problems No 04/07/25 08:09 with transfusion(s)? Specify any problems Hx of Preganancy in last 3 No 04/07/25 08:09 Months Nurse Filling Out Transfusion VCHRISTIN 04/07/25 08:09 Questions: Date: 04/07/25 04/07/25 08:09 Time: 08:10 04/07/25 08:09 Patient unable to answer at this time (ie. confused, unrespo /Reproductio n History /Reproductiv e History - lift driver: /Reproductiv e Hx- lift driver Hx Now No 04/07/25 08:09 Gestational Age (in weeks): EDC: Hx Hx Para Hx Section SAB No 04/07/25 08:09 PFSH Medical History Wears contact lenses Post-menopausal Anxiety Alcohol use Rheumatoid arthritis Lupus Smoker History of edema Home Medications ???Medication ???Instructions ???Recorded ???Last Taken ???Type certolizumab pegol 400 mg/2 mL 200 mg subcut Q2W 12/18/23 5 History (200 mg/mL x2) subcutaneous syringe kit (Cimzia) Held on 03/10/24. Instructions: Resume on 03/25/24. folic acid 1 mg tablet 2 mg PO DAILY 12/18/23 Unknown His tory methotrexate sodium 2.5 mg tablet 12.5 mg PO BONILLA 12/18/23 03/28/25 H istory prednisone 10 mg tablet 10 mg PO QDAY PRN RA 01/04/25 Unkn own History tramadol 50 mg tablet 50 mg PO TID PRN pain 01/04/25 Unk nown History Allergy/AdvReac Type Severity Reaction Status Date / Time No Known (more content not included)... Normal [facility] Orthopedic Visit Reporton Orthopedic Visit Report [facility] [address] [place] [address] OFFICE VISIT Date of Service: 03/15/25 MR#: [id number] Acct: [id number] Name: ELSIE HOWE PO Rep #: [id number] : 1975 Provider: Dr. Dilip landaverde MD Age/Sex: 50/F Location[place] [facility] Status: Signed Intake Vital Signs 01/04/25 09:08 03/15/25 08:58 Height 5 ft 4 in 5 ft 4 in Weight: 183 lb 2 oz 180 lb BMI 31.4 30.9 Intake Visit Reasons: RIGHT SHOULDER Chief Complaint: Right shoulder pain Accompanied by: Self Is patient in pain?: Yes Pain scale (1-10): 8 Allergies No Known Allergies Allergy (Verified 03/15/25 09:00) Medications ???Medication ???Instructions ???Recorded ???Confirmed ???Type certolizumab pegol 400 mg/2 mL 200 mg subcut Q2W 12/18/23 5 History (200 mg/mL x2) subcutaneous syringe kit (Cimzia) Held on 03/10/24. Instructions: Resume on 03/25/24. folic acid 1 mg tablet 2 mg PO DAILY 12/18/23 03/15/25 Hi story methotrexate sodium 2.5 mg tablet 12.5 mg PO BONILLA 12/18/23 03/15/25 H istory prednisone 10 mg tablet 10 mg PO QDAY 01/04/25 03/15/25 Hi story tramadol 50 mg tablet 50 mg PO TID PRN 01/04/25 03/15/25 History Have you fallen in the past year?: No PFSH Medical History Wears contact lenses Post-menopausal Anxiety Alcohol use Rheumatoid arthritis Lupus Smoker History of edema Surgical History History of carpal tunnel surgery of right wrist Family History Grandmother Arthritis Social History household members: other details: Roommate Smoking Status: Current every day smoker tobacco type: e-cigarettes Smokeless tobacco user: other alcohol intake: current alcohol intake frequency: a few times a week HPI RIGHT SHOULDER Details: This documentation accurately reflects the service provided and the decisions made by me, Dr. Dilip Hope MD 03/15/25 0830. Part of today???s visit was documented by [ ], acting as scribe. ELSIE HOWE is a 50 year old F here today for right shoulder pain and a rotator cuff tear and patient with rheumatoid arthritis and lupus. Has tried PT exercises and cortisone injections. This has been 7 years of pain. The patient's pain is anteriorly and laterally definitely worse at night. 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 Has tried many years of conservative management is desiring surgical solution at this point. per Dr. Fair notes Patient is taking prednisone and Tramadol PRN for pain flare ups from her Lupus and Rheumatoid arthritis. She states that 10 years ago she fell and thinks she may have tore something in her shoulder then and her pain has gotten worse over time. She feels that her pain is in the joint. She states that she had had an MRI of it as well cortisone injections. Her MRI was at [facility] who were also the ones who gave her the injection but since she has been seeing Dr. Conley she has taken over doing the cortisone injections. Her last injection was 8 months to a year ago. She denies recent imaging of the shoulder. She denies previous surgery on the shoulder. Supplemental Info 02/27/2025 MRI right shoulder: Advanced degenerative arthropathic changes of the acromioclavicular joint with subacromial impingement. Supraspinatus tendonitis with full thickness tear. Subscapularis tendonitis with partial thickness tear. Infraspinatus tendonitis. Tear on top of tendonitis of the long head of biceps tendon. Glenohumeral degenerative arthropathy with joint effusion subcoracoid and subacromial/subdeltoi d bursitis. 01/04/2025 x-ray right shoulder: No acute findings there is faint spurring at the inferior humeral head 12/06/2023 EMG bilateral upper extremity: Right absent median sensory response at the thumb and prolonged latency median nerve motor response consistent with moderate to severe carpal tunnel. Left prolonged latency of the median motor and sensory responses consistent with moderate left carpal tunnel. 03/10/2024 left open carpal tunnel release: Dr. Fair 02/04/2024 right open carpal tunnel release: Dr. Fair 03/12/2019 MRI report [facility] right shoulder: No images report reads mild to moderate rotator cuff tendinosis with a 5 x 10 mm bursal surface partial tear of the distal supraspinatus tendon at the footprint involving 20 to 30% thickness. Probable recent injury to biceps simone. Small glenohumeral joint effusion. Mild to moderate subacromial subdeltoid bursitis. Mild to (more content not included)... Normal [facility] Orthopedic Visit Reporton Orthopedic Visit Report [facility] [address] [place] [id number] OFFICE VISIT Date of Service: 03/08/25 MR#: [id number] Acct: [id number] Name: CARLEYELSIE PO Rep #: [id number] : 1975 Provider: Dr. Elia pedro DO Age/Sex: 50/F Location: [facility] Status: Signed Intake Vital Signs 01/04/25 09:08 Height 5 ft 4 in Weight: 183 lb 2 oz BMI 31.4 Intake Visit Reasons: RIGHT SHOULDER Allergies No Known Allergies Allergy (Verified 01/04/25 09:10) Medications ???Medication ???Instructions ???Recorded ???Confirmed ???Type certolizumab pegol 400 mg/2 mL 200 mg subcut Q2W 12/18/23 5 History (200 mg/mL x2) subcutaneous syringe kit ([employer]) Held on 03/10/24. Instructions: Resume on 03/25/24. folic acid 1 mg tablet 2 mg PO DAILY 12/18/23 03/08/25 Hi story methotrexate sodium 2.5 mg tablet 12.5 mg PO BONILLA 12/18/23 03/08/25 H istory prednisone 10 mg tablet 10 mg PO QDAY 01/04/25 03/08/25 Hi story tramadol 50 mg tablet 50 mg PO TID PRN 01/04/25 03/08/25 History PFSH Medical History Wears contact lenses Post-menopausal Anxiety Alcohol use Rheumatoid arthritis Lupus Smoker History of edema Surgical History History of carpal tunnel surgery of right wrist Family History Grandmother Arthritis Social History household members: other details: Roommate Smoking Status: Current every day smoker tobacco type: e-cigarettes Smokeless tobacco user: other alcohol intake: current alcohol intake frequency: a few times a week HPI RIGHT SHOULDER Details: This documentation accurately reflects the service provided and the decisions made by me, Dr. Elia Fair, DO 03/08/25 0811. Part of today???s visit was documented by Praveena FIGUEROA, acting as scribe. ELSIE HOWE is a 50 year old F here today for MRI review of the right shoulder. She denies any changes. She has been doing exercises at home that she was given years ago. 01/04/2025 visit:49 year old F here today for right shoulder pain. Patient is taking prednisone and Tramadol PRN for pain flare ups from her Lupus and Rheumatoid arthritis. She states that 10 years ago she fell and thinks she may have tore something in her shoulder then and her pain has gotten worse over time. She feels that her pain is in the joint. She states that she had had an MRI of it as well cortisone injections. Her MRI was at [facility] who were also the ones who gave her the injection but since she has been seeing Dr. Conley she has taken over doing the cortisone injections. Her last injection was 8 months to a year ago. She denies recent imaging of the shoulder. She denies previous surgery on the shoulder. She did do a home exercise program when she was seeing [facility] but she believes she is beyond that point and would like to talk more about surgery. She has not done formal physical therapy recently. Plan:Patient is here today for chronic right shoulder pain she does have rheumatoid arthritis and lupus for which she sees rheumatology. She has benefited from steroid injections in the past none recently. No recent physical therapy no recent injury. She had an injury in the past 10 years ago and should have MRI in 2019 which was relatively benign there was some degenerative change and some partial undersurface tearing. No new injury since then. Patient is asking about surgery. At this point I do not see any surgical indication. We did have an x-ray today which showed a very small humeral head spur inferiorly which I do not believe is contribute to her pain, of note she is complaining of the catching that is painful. It is possible this is from a labral tear or biceps tendon subluxation therefore we discussed getting a new MRI of her shoulder, she would also benefit from physical therapy. But she would prefer to have the MRI Follow up as needed or sooner if pain, swelling, numbness or associated symptoms, or concerns develop. All questions answered. Patient in agreement of plan. Ortho Exam General General: Yes no acute distress and Yes well groomed Neurologic: Yes alert and Yes oriented x3 Psychologic: Yes reasonable and appropriate Right Shoulder Skin/Wound: No ecchymosis, No erythema and No swelling Testing: Positive Hawkin's, Neer's, Speed's and TTP Biceps; Negative TTP AC Joint or Drop Arm SHOULDER: 145 Supplemental Info 02/27/2025 MRI right shoulder: Advanced degenerative arthropathic changes of the acromioclavicular joint with subacromial impingement. Supraspinatus tendonitis with full thickness tear. Subscapu (more content not included)... Normal [facility] .Auto Diffon 03-02-2025 Basophil, Absolute 0.1 10 3/mcL Normal 0.0-0.3 [facility] Comment on above: Performed By: #### C BC, CMP, ADIFF, GFR, ANEU #### [address] [address] Basophils/100 WBC (Bld) 0.6 % Normal 0.0-2.5 [facility] Comment on above: Performed By: #### C BC, CMP, ADIFF, GFR, ANEU #### [address] [address] Eosinophil, Absolute 0.0 10 3/mcL Normal 0.0-0.7 [facility] Comment on above: Performed By: #### C BC, CMP, ADIFF, GFR, ANEU #### [address] [address] Eosinophils/100 WBC (Bld) 0.1 % Normal 0.0-6.0 [facility] Comment on above: Performed By: #### C BC, CMP, ADIFF, GFR, ANEU #### [address] [address] Lymphocyte, Absolute 0.9 10 3/mcL Normal 0.9-4.3 [facility] Comment on above: Performed By: #### C BC, CMP, ADIFF, GFR, ANEU #### [address] [address] Lymphocytes/100 WBC (Bld) 9.9 % Low 20.0-40.0 [facility] Comment on above: Performed By: #### C BC, CMP, ADIFF, GFR, ANEU #### [address] [address] Monocyte, Absolute 0.2 10 3/mcL Normal 0.1-1.4 [facility] Comment on above: Performed By: #### C BC, CMP, ADIFF, GFR, ANEU #### [address] [address] Monocytes/100 WBC (Bld) 2.3 % Normal 2.0-13.0 [facility] Comment on above: Performed By: #### C BC, CMP, ADIFF, GFR, ANEU #### [address] [address] Neutrophils/100 WBC (Bld) 87.1 % High 50.0-75.0 [facility] Comment on above: Performed By: #### C BC, CMP, ADIFF, GFR, ANEU #### [address] [address] .GFRon 03-02-2025 Estimated Glomerular Filtration Rate 93 ml/min/1.73sqm Normal [facility] Comment on above: Result Comment: Stages of Chronic Kidney Disease (CKD) Stage Description eGFR(ml/min/1.73 sq.m.) CKD 1 Normal kidney function or >=90 normal kindney function with possible kidney damage (ex. Proteinuria) CKD 2 Kidney damage with mild loss 60-89 of kidney function CKD 3a Mild to moderate loss of kidney 45-59 function CKD 3b Moderate to severe loss of 30-44 of kindey function CKD 4 Severe loss of kidney function 15-29 CKD 5 Kidney failure <15 Note: (go live 2024) the eGFR calculation was updated to the 2020 CKD-EPI creatinine equation without a race factor to calculate the eGFR results. Performed By: #### C BC, CMP, ADIFF, GFR, ANEU #### [address] [address] .NEUABSon 03-02-2025 Neutrophil, Absolute 8.2 10 3/mcL High 2.3-8.1 [facility] Comment on above: Performed By: #### C BC, CMP, ADIFF, GFR, ANEU #### [address] [address] CBCon 03-02-2025 Erythrocyte distribution width (RBC) [Ratio] 13.0 % Normal 11.5-15.5 [facility] Comment on above: Performed By: #### C BC, CMP, ADIFF, GFR, ANEU #### [address] [address] Hematocrit (Bld) [Volume fraction] 40.0 % Normal 34.0-46.0 [facility] Comment on above: Performed By: #### C BC, CMP, ADIFF, GFR, ANEU #### [address] [address] Hgb 13.5 G/dL Normal 12.0-16.0 [facility] Comment on above: Performed By: #### C BC, CMP, ADIFF, GFR, ANEU #### [address] [address] MCH (RBC) [Entitic mass] 29.3 pg Normal 27.0-33.0 [facility] Comment on above: Performed By: #### C BC, CMP, ADIFF, GFR, ANEU #### [address] [address] MCHC 33.8 G/dL Normal 32.0-36.0 [facility] Comment on above: Performed By: #### C BC, CMP, ADIFF, GFR, ANEU #### [address] [address] MCV (RBC) [Entitic vol] 86.8 fL Normal 80.0-99.0 [facility] Comment on above: Performed By: #### C BC, CMP, ADIFF, GFR, ANEU #### [address] [address] Platelet 259 10 3/mcL Normal 150-450 [facility] Comment on above: Performed By: #### C BC, CMP, ADIFF, GFR, ANEU #### [address] [address] Platelet mean volume (Bld) [Entitic vol] 9.4 fL Normal 6.6-10.5 [facility] Comment on above: Performed By: #### C BC, CMP, ADIFF, GFR, ANEU #### [address] [address] RBC 4.61 10 6/mcL Normal 4.10-5.30 [facility] Comment on above: Performed By: #### C BC, CMP, ADIFF, GFR, ANEU #### [place] [id number] WBC 9.5 10 3/mcL Normal 4.5-10.8 [facility] Comment on above: Performed By: #### C BC, CMP, ADIFF, GFR, ANEU #### [place] [address] CMPon 03-02-2025 Albumin Level 4.3 G/dL Normal 3.5-5.0 [facility] Comment on above: Performed By: #### C BC, CMP, ADIFF, GFR, ANEU #### [place] [address] Albumin/Globulin [Mass ratio] 1.3 {ratio} Normal 1.1-2.5 [facility] Comment on above: Performed By: #### C BC, CMP, ADIFF, GFR, ANEU #### [place] [id number] ALP [Catalytic activity/Vol] 67 U/L Normal 40-135 [facility] Comment on above: Performed By: #### C BC, CMP, ADIFF, GFR, ANEU #### [place] [address] ALT [Catalytic activity/Vol] 19 U/L Normal 14-59 [facility] Comment on above: Performed By: #### C BC, CMP, ADIFF, GFR, ANEU #### [place] [id number] AST [Catalytic activity/Vol] 19 U/L Normal 10-40 [facility] Comment on above: Performed By: #### C BC, CMP, ADIFF, GFR, ANEU #### [address] [address] Bili Total 0.4 mg/dL Normal 0.2-1.0 [facility] Comment on above: Result Comment: Use of this assay is not recommended for patients undergoing treatment with eltrombopag due to the potential for falsely elevated results. Performed By: #### C BC, CMP, ADIFF, GFR, ANEU #### [place] [address] BUN/Creatinine Ratio 19 ratio Normal 7-27 [facility] Comment on above: Performed By: #### C BC, CMP, ADIFF, GFR, ANEU #### [place] [address] Calcium [Mass/Vol] 9.6 mg/dL Normal 8.4-10.2 [facility] Comment on above: Performed By: #### C BC, CMP, ADIFF, GFR, ANEU #### [place] [address] Chloride [Moles/Vol] 102 mmol/L Normal 98-107 [facility] Comment on above: Performed By: #### C BC, CMP, ADIFF, GFR, ANEU #### [place] [address] CO2 [Moles/Vol] 25 mmol/L Normal 22-29 [facility] Comment on above: Performed By: #### C BC, CMP, ADIFF, GFR, ANEU #### [place] [address] Creatinine [Mass/Vol] 0.78 mg/dL Normal 0.51-0.95 [facility] Comment on above: Performed By: #### C BC, CMP, ADIFF, GFR, ANEU #### [place] [address] Electrolyte Balance 12.0 mEq/L Normal 4.0-15.0 [facility] Comment on above: Performed By: #### C BC, CMP, ADIFF, GFR, ANEU #### [place] [address] Globulin 3.4 G/dL Normal 2.7-4.4 [facility] Comment on above: Performed By: #### C BC, CMP, ADIFF, GFR, ANEU #### [address] [address] Glucose [Mass/Vol] 99 mg/dL Normal 70-105 [facility] Comment on above: Performed By: #### C BC, CMP, ADIFF, GFR, ANEU #### [address] [address] Potassium [Moles/Vol] 4.0 mmol/L Normal 3.5-5.1 [facility] Comment on above: Performed By: #### C BC, CMP, ADIFF, GFR, ANEU #### [address] [address] Sodium [Moles/Vol] 139 mmol/L Normal 136-145 [facility] Comment on above: Performed By: #### C BC, CMP, ADIFF, GFR, ANEU #### [address] [address] Total Protein 7.7 G/dL Normal 6.4-8.2 [facility] Comment on above: Performed By: #### C BC, CMP, ADIFF, GFR, ANEU #### [address] [address] Urea nitrogen [Mass/Vol] 15 mg/dL Normal 7-18 [facility] Comment on above: Performed By: #### C BC, CMP, ADIFF, GFR, ANEU #### [address] [address] Magnetic resonance imaging r eportOrdered By: Semaj Shepard on 02-28-2025 Study report [facility] Imaging Services [address] [place] [id number] Upper Ext Joint Only(Routine) MR#: [id number] Acct: [id number] Name: ELSIE HOWE PO Rep #: [id number] : 1975 F 50 From: Chirag Shepard MD PCP: Dr. Kelli Lance DO Status: REG CLI Study:Upper Ext Joint Only(Routine) Date of Exam: 02/27/25 Exam# [id number] Ordering Dr: Elia Fair DO PROCEDURE: UPPER EXT JOINT ONLY(ROUTINE) 02/27/2025 REASON FOR EXAM: PAIN TECHNIQUE: MRI of the upper Extremity. Multiplanar and multisequence images were obtained without IV contrast administration. COMPARISON: COMPARISON : FINDINGS: The supraspinatus tendon shows intrasubstance high signal with total interruption of its fibers forming a gap measuring about 3.6 cm in width. Thickening and intrasubstance high signal of the subscapularis tendon with partial fibers interruption. Intrasubstance high signal of the infraspinatus tendon with no evidence of complete fibers interruption. The teres minor tendon appears intact. High signal of the long head of biceps tendon with ill definition intra-articular segment. Fluid signal distending its sheath. No obvious glenoid labral tears. Advanced degenerative arthropathic changes of the acromioclavicular joint evident by marginal osteophytic lipping, cortical irregularities and subcortical marrow edema of its opposing articular surfaces with hypertrophied edematous joint capsule. Marginal lipping of the glenohumeral articular surface with mild superior subluxation of the humeral head. Mild glenohumeral joint effusion Fluid signal distending the subcoracoid and subacromial/subdeltoi d bursa. Thickening and edema signal of the rotator interval capsule and inferior glenohumeral ligament. Focal cortical irregularities and subcortical pseudocysts & marrow edema of the humeral head/greater tuberosity. No marrow infiltrative lesions. The neurovascular bundles appear unremarkable. 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 Supraspinatus tendonitis with full thickness tear. Subscapularis tendonitis with partial thickness tear. Infraspinatus tendonitis. Tear on top of tendonitis of the long head of biceps tendon. Glenohumeral degenerative arthropathy with joint effusion & subcoracoid and subacromial/subdeltoi d bursitis. [facility] CC: Dr. Elia Fair DO; Dr. Kelli Lance DO ~ Rn Imcu: Signed [facility] Upper Ext Joint Only(Routine )on 02-27-2025 Upper Ext Joint Only(Routine) [facility] Imaging Services [address] [place], [place] [address] Upper Ext Joint Only(Routine) MR#: [id number] Acct: [id number] Name: ELSIE HOWE Rep #: [id number] : 1975 F 50 From: Semaj barnett MD PCP: Dr. Kelli Lance DO Status: REG CLI Study: Upper Ext Joint Only(Routine) Date of Exam: 0 02/27/25 Exam# [id number] Ordering Dr: Elia Fair DO PROCEDURE: UPPER EXT JOINT ONLY(ROUTINE) 02/27/2025 REASON FOR EXAM: PAIN TECHNIQUE: MRI of the upper Extremity. Multiplanar and multisequence images were obtained without IV contrast administration. COMPARISON: COMPARISON : FINDINGS: The supraspinatus tendon shows intrasubstance high signal with total interruption of its fibers forming a gap measuring about 3.6 cm in width. Thickening and intrasubstance high signal of the subscapularis tendon with partial fibers interruption. Intrasubstance high signal of the infraspinatus tendon with no evidence of complete fibers interruption. The teres minor tendon appears intact. High signal of the long head of biceps tendon with ill definition intra-articular segment. Fluid signal distending its sheath. No obvious glenoid labral tears. Advanced degenerative arthropathic changes of the acromioclavicular joint evident by marginal osteophytic lipping, cortical irregularities and subcortical marrow edema of its opposing articular surfaces with hypertrophied edematous joint capsule. Marginal lipping of the glenohumeral articular surface with mild superior subluxation of the humeral head. Mild glenohumeral joint effusion Fluid signal distending the subcoracoid and subacromial/subdeltoi d bursa. Thickening and edema signal of the rotator interval capsule and inferior glenohumeral ligament. Focal cortical irregularities and subcortical pseudocysts marrow edema of the humeral head/greater tuberosity. No marrow infiltrative lesions. The neurovascular bundles appear unremarkable. 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 Supraspinatus tendonitis with full thickness tear. Subscapularis tendonitis with partial thickness tear. Infraspinatus tendonitis. Tear on top of tendonitis of the long head of biceps tendon. Glenohumeral degenerative arthropathy with joint effusion subcoracoid and subacromial/subdeltoi d bursitis. Reading Location: [place] [address] CC: Dr. Elia Fair DO; Dr. Kelli Lance DO Rn Imcu: Signed Normal [facility] Orthopedic Visit Reporton Orthopedic Visit Report [facility] [address] [place] [address] OFFICE VISIT Date of Service: 01/04/25 MR#: [id number] Acct: [id number] Name: ELSIE HOWE PO Rep #: [id number] : 1975 Provider: Dr. Elia pedro DO Age/Sex: 49/F Location: [facility] Status: Signed Intake Vital Signs 03/10/24 06:16 01/04/25 09:08 Height 5 ft 4 in 5 ft 4 in Weight: 183 lb 2 oz BMI 31.4 Intake Visit Reasons: RIGHT SHOULDER Allergies No Known Allergies Allergy (Verified 01/04/25 09:10) Medications ???Medication ???Instructions ???Recorded ???Confirmed ???Type certolizumab pegol 400 mg/2 mL 200 mg subcut Q2W 12/18/23 5 History (200 mg/mL x2) subcutaneous syringe kit (Cimzia) Held on 03/10/24. Instructions: Resume on 03/25/24. folic acid 1 mg tablet 2 mg PO DAILY 12/18/23 01/04/25 Hi story methotrexate sodium 2.5 mg tablet 12.5 mg PO BONILLA 12/18/23 01/04/25 H istory prednisone 10 mg tablet 10 mg PO QDAY 01/04/25 01/04/25 Hi story tramadol 50 mg tablet 50 mg PO TID PRN 01/04/25 01/04/25 History PFSH Medical History (Updated 01/04/25 @ 09:[address] Elia Fair DO) Wears contact lenses Post-menopausal Anxiety Alcohol use Rheumatoid arthritis Lupus Smoker History of edema Surgical History History of carpal tunnel surgery of right wrist Family History Grandmother Arthritis Social History household members: other details: Roommate Smoking Status: Current every day smoker tobacco type: e-cigarettes Smokeless tobacco user: other alcohol intake: current alcohol intake frequency: a few times a week HPI RIGHT SHOULDER Details: This documentation accurately reflects the service provided and the decisions made by me, Dr. Elia Fair DO 01/04/25 0749. Part of today???s visit was documented by Praveena FIGUEROA, acting as scribe. ELSIE HOWE is a 49 year old F here today for right shoulder pain. Patient is taking prednisone and Tramadol PRN for pain flare ups from her Lupus and Rheumatoid arthritis. She states that 10 years ago she fell and thinks she may have tore something in her shoulder then and her pain has gotten worse over time. She feels that her pain is in the joint. She states that she had had an MRI of it as well cortisone injections. Her MRI was at [facility] who were also the ones who gave her the injection but since she has been seeing Dr. Conley she has taken over doing the cortisone injections. Her last injection was 8 months to a year ago. She denies recent imaging of the shoulder. She denies previous surgery on the shoulder. She did do a home exercise program when she was seeing [facility] but she believes she is beyond that point and would like to talk more about surgery. She has not done formal physical therapy recently. Ortho Exam General General: Yes no acute distress and Yes well groomed Neurologic: Yes alert and Yes oriented x3 Psychologic: Yes reasonable and appropriate Right Shoulder Skin/Wound: No ecchymosis, No erythema and No swelling Testing: Positive Hawkin's, Neer's, Speed's and TTP Biceps; Negative TTP AC Joint or Drop Arm SHOULDER: Her pain seems more located in the glenohumeral joint and in the subacromial as she does no lateral sided pain pain in glenohumeral joint no effusion tender over biceps pain with speeds not over biceps no ac joint tenderness 170 forward flexion 150 abduction ER 55 IR 25 postive alexander She is a smooth arc of motion and I do not appreciate the biceps subluxating however she complains of painful catching Supplemental Info 01/04/2025 x-ray right shoulder: No acute findings there is faint spurring at the inferior humeral head 12/06/2023 EMG bilateral upper extremity: Right absent median sensory response at the thumb and prolonged latency median nerve motor response consistent with moderate to severe carpal tunnel. Left prolonged latency of the median motor and sensory responses consistent with moderate left carpal tunnel. 03/10/2024 left open carpal tunnel release: Dr. Fair 02/04/2024 right open carpal tunnel release: Dr. Fair 03/12/2019 MRI report [facility] right shoulder: No images report reads mild to moderate rotator cuff tendinosis with a 5 x 10 mm bursal surface partial tear of the distal supraspinatus ten don at the footprint involving 20 to 30% thickness. Probable recent injury to biceps simone. Small glenohumeral joint effusion. Mild to moderate subacromial subdeltoid bursitis. Mild to moderate diffuse degeneration of the labrum. Mild chronic hypertrophic changes of the AC joint which do not (more content not included)... Normal [facility] Shoulder min 2 Viewson 01-04 Shoulder min 2 Views [facility] Imaging Services [address] [place] [address] Shoulder min 2 Views MR#: [id number] Acct: [id number] Name: ELSIE HOWE PO Rep #: [id number] : 1975 F 49 From: Chris Gonzalez MD PCP: Dr. Kelli Lance DO Status: DEP AMB Study: Shoulder min 2 Views Date of Exam: 01/04/25 Exam# [id number] Ordering Dr: Elia Fair DO PROCEDURE: SHOULDER MIN 2 VIEWS 01/04/2025 REASON FOR EXAM: CHRONIC PAIN TECHNIQUE: Four views of the right shoulder COMPARISON: None available FINDINGS: No fracture or dislocation. The joint spaces appear within limits. Minimal spurring at the inferior humeral head. Mild inferior spurring suggested AC joint. The visualized right lung is clear. RAD/Shoulder min 2 Views IMPRESSION: Mild acromioclavicular and minimal glenohumeral joint osteoarthrosis. Reading Location: [id number] CC: Dr. Elia Fair, DO; Dr. Kelli Lance DO Rn Imcu: Signed Normal [facility] .Auto Diffon 12-09-2024 Basophil, Absolute 0.0 10 3/mcL Normal 0.0-0.2 [facility] Comment on above: Performed By: #### C BC, CMP, ADIFF, GFR, ANEU #### [address] [address] Basophils/100 WBC (Bld) 0.6 % Normal 0.0-2.5 [facility] Comment on above: Performed By: #### C BC, CMP, ADIFF, GFR, ANEU #### [address] [address] Eosinophil, Absolute 0.0 10 3/mcL Normal 0.0-0.7 [facility] Comment on above: Performed By: #### C BC, CMP, ADIFF, GFR, ANEU #### [address] [address] Eosinophils/100 WBC (Bld) 0.5 % Normal 0.0-7.0 [facility] Comment on above: Performed By: #### C BC, CMP, ADIFF, GFR, ANEU #### [address] [address] Lymphocyte, Absolute 2.1 10 3/mcL Normal 0.9-4.3 [facility] Comment on above: Performed By: #### C BC, CMP, ADIFF, GFR, ANEU #### [address] [address] Lymphocytes/100 WBC (Bld) 26.0 % Normal 20.0-40.0 [facility] Comment on above: Performed By: #### C BC, CMP, ADIFF, GFR, ANEU #### [address] [address] Monocyte, Absolute 0.6 10 3/mcL Normal 0.1-1.4 [facility] Comment on above: Performed By: #### C BC, CMP, ADIFF, GFR, ANEU #### [address] [address] Monocytes/100 WBC (Bld) 7.8 % Normal 2.0-13.0 [facility] Comment on above: Performed By: #### C BC, CMP, ADIFF, GFR, ANEU #### [address] [address] Neutrophils/100 WBC (Bld) 65.1 % Normal 50.0-75.0 [facility] Comment on above: Performed By: #### C BC, CMP, ADIFF, GFR, ANEU #### [address] [address] .GFRon 12-09-2024 Estimated Glomerular Filtration Rate 69 ml/min/1.73sqm Normal [facility] Comment on above: Result Comment: Stages of Chronic Kidney Disease (CKD) Stage Description eGFR(ml/min/1.73 sq.m.) CKD 1 Normal kidney function or >=90 normal kindney function with possible kidney damage (ex. Proteinuria) CKD 2 Kidney damage with mild loss 60-89 of kidney function CKD 3a Mild to moderate loss of kidney 45-59 function CKD 3b Moderate to severe loss of 30-44 of kindey function CKD 4 Severe loss of kidney function 15-29 CKD 5 Kidney failure <15 Note: (go live 2024) the eGFR calculation was updated to the 2020 CKD-EPI creatinine equation without a race factor to calculate the eGFR results. Performed By: #### C BC, CMP, ADIFF, GFR, ANEU #### [address] [address] .NEUABSon 12-09-2024 Neutrophil, Absolute 5.3 10 3/mcL Normal 2.3-8.1 [facility] Comment on above: Performed By: #### C BC, CMP, ADIFF, GFR, ANEU #### [address] [address] CBCon 12-09-2024 Erythrocyte distribution width (RBC) [Ratio] 13.4 % Normal 11.5-15.5 [facility] Comment on above: Performed By: #### C BC, CMP, ADIFF, GFR, ANEU #### [address] [address] Hematocrit (Bld) [Volume fraction] 38.8 % Normal 34.0-46.0 [facility] Comment on above: Performed By: #### C BC, CMP, ADIFF, GFR, ANEU #### [address] [address] Hgb 13.3 G/dL Normal 12.0-16.0 [facility] Comment on above: Performed By: #### C BC, CMP, ADIFF, GFR, ANEU #### [address] [address] MCH (RBC) [Entitic mass] 29.4 pg Normal 27.0-33.0 [facility] Comment on above: Performed By: #### C BC, CMP, ADIFF, GFR, ANEU #### [address] [address] MCHC 34.3 G/dL Normal 32.0-36.0 [facility] Comment on above: Performed By: #### C BC, CMP, ADIFF, GFR, ANEU #### [address] [address] MCV (RBC) [Entitic vol] 85.6 fL Normal 80.0-99.0 [facility] Comment on above: Performed By: #### C BC, CMP, ADIFF, GFR, ANEU #### [address] [address] Platelet 272 10 3/mcL Normal 150-450 [facility] Comment on above: Performed By: #### C BC, CMP, ADIFF, GFR, ANEU #### [address] [address] Platelet mean volume (Bld) [Entitic vol] 9.1 fL Normal 6.6-10.5 [facility] Comment on above: Performed By: #### C BC, CMP, ADIFF, GFR, ANEU #### [place] [address] RBC 4.53 10 6/mcL Normal 4.10-5.30 [facility] Comment on above: Performed By: #### C BC, CMP, ADIFF, GFR, ANEU #### [place] [address] WBC 8.2 10 3/mcL Normal 4.5-10.8 [facility] Comment on above: Performed By: #### C BC, CMP, ADIFF, GFR, ANEU #### [place] [id number] CMPon 12-09-2024 Albumin Level 4.7 G/dL Normal 3.5-5.0 [facility] Comment on above: Performed By: #### C BC, CMP, ADIFF, GFR, ANEU #### [address] [address] Albumin/Globulin [Mass ratio] 1.6 {ratio} Normal 1.1-2.5 [facility] Comment on above: Performed By: #### C BC, CMP, ADIFF, GFR, ANEU #### [address] [address] ALP [Catalytic activity/Vol] 58 U/L Normal 40-135 [facility] Comment on above: Performed By: #### C BC, CMP, ADIFF, GFR, ANEU #### [place] [id number] ALT [Catalytic activity/Vol] 27 U/L Normal 14-59 [facility] Comment on above: Performed By: #### C BC, CMP, ADIFF, GFR, ANEU #### [address] [address] AST [Catalytic activity/Vol] 25 U/L Normal 10-40 [facility] Comment on above: Performed By: #### C BC, CMP, ADIFF, GFR, ANEU #### [address] [address] Bili Total 0.6 mg/dL Normal 0.2-1.0 [facility] Comment on above: Result Comment: Use of this assay is not recommended for patients undergoing treatment with eltrombopag due to the potential for falsely elevated results. Performed By: #### C BC, CMP, ADIFF, GFR, ANEU #### [place] [id number] BUN/Creatinine Ratio 23 ratio Normal 7-27 [facility] Comment on above: Performed By: #### C BC, CMP, ADIFF, GFR, ANEU #### [address] [address] Calcium [Mass/Vol] 9.4 mg/dL Normal 8.4-10.2 [facility] Comment on above: Performed By: #### C BC, CMP, ADIFF, GFR, ANEU #### [address] [address] Chloride [Moles/Vol] 99 mmol/L Normal 98-107 [facility] Comment on above: Performed By: #### C BC, CMP, ADIFF, GFR, ANEU #### [address] [address] CO2 [Moles/Vol] 25 mmol/L Normal 22-29 [facility] Comment on above: Performed By: #### C BC, CMP, ADIFF, GFR, ANEU #### [address] [address] Creatinine [Mass/Vol] 1.00 mg/dL Normal 0.55-1.02 [facility] Comment on above: Result Comment: Test ing performed on Siemens Dimension EXL analyzer using a modified kinetic Aranza technique. Performed By: #### C BC, CMP, ADIFF, GFR, ANEU #### [address] [address] Electrolyte Balance 12.0 mEq/L Normal 4.0-15.0 [facility] Comment on above: Performed By: #### C BC, CMP, ADIFF, GFR, ANEU #### [address] [address] Globulin 2.9 G/dL Normal 1.5-3.8 [facility] Comment on above: Performed By: #### C BC, CMP, ADIFF, GFR, ANEU #### [address] [address] Glucose [Mass/Vol] 131 mg/dL High 70-105 [facility] Comment on above: Performed By: #### C BC, CMP, ADIFF, GFR, ANEU #### [address] [address] Potassium [Moles/Vol] 3.1 mmol/L Low 3.5-5.1 [facility] Comment on above: Performed By: #### C BC, CMP, ADIFF, GFR, ANEU #### [address] [address] Sodium [Moles/Vol] 136 mmol/L Normal 136-145 [facility] Comment on above: Performed By: #### C BC, CMP, ADIFF, GFR, ANEU #### [address] [address] Total Protein 7.6 G/dL Normal 6.4-8.2 [facility] Comment on above: Performed By: #### C BC, CMP, ADIFF, GFR, ANEU #### [address] [address] Urea nitrogen [Mass/Vol] 23 mg/dL High 7-18 [facility] Comment on above: Performed By: #### C BC, CMP, ADIFF, GFR, ANEU #### [address] [address] .Auto Diffon 09-11-2024 Basophil, Absolute 0.1 10 3/mcL Normal 0.0-0.2 [facility] Comment on above: Performed By: #### A DIFF, CMP, GFR, CBC, ANEU #### [address] [address] Basophils/100 WBC (Bld) 0.9 % Normal 0.0-2.5 [facility] Comment on above: Performed By: #### A DIFF, CMP, GFR, CBC, ANEU #### [address] [address] Eosinophil, Absolute 0.4 10 3/mcL Normal 0.0-0.7 [facility] Comment on above: Performed By: #### A DIFF, CMP, GFR, CBC, ANEU #### [address] [address] Eosinophils/100 WBC (Bld) 4.3 % Normal 0.0-7.0 [facility] Comment on above: Performed By: #### A DIFF, CMP, GFR, CBC, ANEU #### [address] [address] Lymphocyte, Absolute 2.7 10 3/mcL Normal 0.9-4.3 [facility] Comment on above: Performed By: #### A DIFF, CMP, GFR, CBC, ANEU #### [address] [address] Lymphocytes/100 WBC (Bld) 31.9 % Normal 20.0-40.0 [facility] Comment on above: Performed By: #### A DIFF, CMP, GFR, CBC, ANEU #### [address] [address] Monocyte, Absolute 0.8 10 3/mcL Normal 0.1-1.4 [facility] Comment on above: Performed By: #### A DIFF, CMP, GFR, CBC, ANEU #### [address] [address] Monocytes/100 WBC (Bld) 8.8 % Normal 2.0-13.0 [facility] Comment on above: Performed By: #### A DIFF, CMP, GFR, CBC, ANEU #### [address] [address] Neutrophils/100 WBC (Bld) 54.1 % Normal 50.0-75.0 [facility] Comment on above: Performed By: #### A DIFF, CMP, GFR, CBC, ANEU #### [address] [address] .GFRon 09-11-2024 GFR 93 ml/min/1.73sqm Normal [facility] Comment on above: Result Comment: GFR Population mean for , Non- Americans Ages 20-29 = 116 mL/min/1.73 sq.m. Ages 30-39 = 107 mL/min/1.73 sq.m. Ages 40-49 = 99 mL/min/1.73 sq.m. Ages 50-59 = 93 mL/min/1.73 sq.m. Ages 60-69 = 85 mL/min/1.73 sq.m. Ages 70+ = 75 mL/min/1.73 sq.m. Chronic Kidney Disease: Less than 60 mL/min/1.73 square meters End Stage Renal Disease: Less than 15 mL/min/1.73 square meters Performed By: #### A DIFF, CMP, GFR, CBC, ANEU #### [address] [address] GFR Non- 77 ml/min/1.73sqm Normal [facility] Comment on above: Result Comment: GFR Population mean for , Non- Americans Ages 20-29 = 116 mL/min/1.73 sq.m. Ages 30-39 = 107 mL/min/1.73 sq.m. Ages 40-49 = 99 mL/min/1.73 sq.m. Ages 50-59 = 93 mL/min/1.73 sq.m. Ages 60-69 = 85 mL/min/1.73 sq.m. Ages 70+ = 75 mL/min/1.73 sq.m. Chronic Kidney Disease: Less than 60 mL/min/1.73 square meters End Stage Renal Disease: Less than 15 mL/min/1.73 square meters Performed By: #### A DIFF, CMP, GFR, CBC, ANEU #### [place] [address] .NEUABSon 09-11-2024 Neutrophil, Absolute 4.6 10 3/mcL Normal 2.3-8.1 [facility] Comment on above: Performed By: #### A DIFF, CMP, GFR, CBC, ANEU #### [place] [address] CBCon 09-11-2024 Erythrocyte distribution width (RBC) [Ratio] 13.2 % Normal 11.5-15.5 [facility] Comment on above: Performed By: #### A DIFF, CMP, GFR, CBC, ANEU #### [place] [address] Hematocrit (Bld) [Volume fraction] 37.6 % Normal 34.0-46.0 [facility] Comment on above: Performed By: #### A DIFF, CMP, GFR, CBC, ANEU #### [place] [address] Hgb 12.8 G/dL Normal 12.0-16.0 [facility] Comment on above: Performed By: #### A DIFF, CMP, GFR, CBC, ANEU #### [place] [address] MCH (RBC) [Entitic mass] 30.1 pg Normal 27.0-33.0 [facility] Comment on above: Performed By: #### A DIFF, CMP, GFR, CBC, ANEU #### [place] [address] MCHC 34.0 G/dL Normal 32.0-36.0 [facility] Comment on above: Performed By: #### A DIFF, CMP, GFR, CBC, ANEU #### [place] [address] MCV (RBC) [Entitic vol] 88.5 fL Normal 80.0-99.0 [facility] Comment on above: Performed By: #### A DIFF, CMP, GFR, CBC, ANEU #### [address] [address] Platelet 263 10 3/mcL Normal 150-450 [facility] Comment on above: Performed By: #### A DIFF, CMP, GFR, CBC, ANEU #### [address] [address] Platelet mean volume (Bld) [Entitic vol] 9.1 fL Normal 6.6-10.5 [facility] Comment on above: Performed By: #### A DIFF, CMP, GFR, CBC, ANEU #### [address] [address] RBC 4.24 10 6/mcL Normal 4.10-5.30 [facility] Comment on above: Performed By: #### A DIFF, CMP, GFR, CBC, ANEU #### [address] [address] WBC 8.6 10 3/mcL Normal 4.5-10.8 [facility] Comment on above: Performed By: #### A DIFF, CMP, GFR, CBC, ANEU #### [address] [address] CMPon 09-11-2024 Albumin Level 4.0 G/dL Normal 3.5-5.0 [facility] Comment on above: Performed By: #### A DIFF, CMP, GFR, CBC, ANEU #### [address] [address] Albumin/Globulin [Mass ratio] 1.3 {ratio} Normal 1.1-2.5 [facility] Comment on above: Performed By: #### A DIFF, CMP, GFR, CBC, ANEU #### [address] [address] ALP [Catalytic activity/Vol] 75 U/L Normal 40-135 [facility] Comment on above: Performed By: #### A DIFF, CMP, GFR, CBC, ANEU #### [address] [address] ALT [Catalytic activity/Vol] 24 U/L Normal 14-59 [facility] Comment on above: Performed By: #### A DIFF, CMP, GFR, CBC, ANEU #### [address] [address] AST [Catalytic activity/Vol] 21 U/L Normal 10-40 [facility] Comment on above: Performed By: #### A DIFF, CMP, GFR, CBC, ANEU #### [address] [address] Bili Total 0.3 mg/dL Normal 0.2-1.0 [facility] Comment on above: Result Comment: Use of this assay is not recommended for patients undergoing treatment with eltrombopag due to the potential for falsely elevated results. Performed By: #### A DIFF, CMP, GFR, CBC, ANEU #### [address] [address] BUN/Creatinine Ratio 19 ratio Normal 7-27 [facility] Comment on above: Performed By: #### A DIFF, CMP, GFR, CBC, ANEU #### [address] [address] Calcium [Mass/Vol] 9.3 mg/dL Normal 8.4-10.2 [facility] Comment on above: Performed By: #### A DIFF, CMP, GFR, CBC, ANEU #### [address] [address] Chloride [Moles/Vol] 99 mmol/L Normal 98-107 [facility] Comment on above: Performed By: #### A DIFF, CMP, GFR, CBC, ANEU #### [address] [address] CO2 [Moles/Vol] 27 mmol/L Normal 22-29 [facility] Comment on above: Performed By: #### A DIFF, CMP, GFR, CBC, ANEU #### [address] [address] Creatinine [Mass/Vol] 0.80 mg/dL Normal 0.55-1.02 [facility] Comment on above: Result Comment: Test ing performed on [employer]ile System Dimension EXL analyzer using a modified kinetic Aranza technique. Performed By: #### A DIFF, CMP, GFR, CBC, ANEU #### [address] [address] Electrolyte Balance 11.0 mEq/L Normal 4.0-15.0 [facility] Comment on above: Performed By: #### A DIFF, CMP, GFR, CBC, ANEU #### [place] [id number] Globulin 3.0 G/dL Normal [facility] Comment on above: Performed By: #### A DIFF, CMP, GFR, CBC, ANEU #### [place] [address] Glucose [Mass/Vol] 110 mg/dL High 70-105 [facility] Comment on above: Performed By: #### A DIFF, CMP, GFR, CBC, ANEU #### [place] [address] Potassium [Moles/Vol] 3.7 mmol/L Normal 3.5-5.1 [facility] Comment on above: Performed By: #### A DIFF, CMP, GFR, CBC, ANEU #### [place] [address] Sodium [Moles/Vol] 137 mmol/L Normal 136-145 [facility] Comment on above: Performed By: #### A DIFF, CMP, GFR, CBC, ANEU #### [place] [address] Total Protein 7.0 G/dL Normal 6.4-8.2 [facility] Comment on above: Performed By: #### A DIFF, CMP, GFR, CBC, ANEU #### [place] [id number] Urea nitrogen [Mass/Vol] 15 mg/dL Normal 7-18 [facility] Comment on above: Performed By: #### A DIFF, CMP, GFR, CBC, ANEU #### [address] [address] .Auto Diffon 06-22-2024 Basophil, Absolute 0.1 10 3/mcL Normal 0.0-0.2 [facility] Comment on above: Performed By: #### C BC, CMP, ADIFF, GFR, ANEU #### [address] [address] Basophils/100 WBC (Bld) 1.1 % Normal 0.0-2.5 [facility] Comment on above: Performed By: #### C BC, CMP, ADIFF, GFR, ANEU #### [address] [address] Eosinophil, Absolute 0.8 10 3/mcL High 0.0-0.4 [facility] Comment on above: Performed By: #### C BC, CMP, ADIFF, GFR, ANEU #### [address] [address] Eosinophils/100 WBC (Bld) 9.1 % High 0.0-7.0 [facility] Comment on above: Performed By: #### C BC, CMP, ADIFF, GFR, ANEU #### [address] [address] Lymphocyte, Absolute 2.7 10 3/mcL Normal 0.8-3.9 [facility] Comment on above: Performed By: #### C BC, CMP, ADIFF, GFR, ANEU #### [address] [address] Lymphocytes/100 WBC (Bld) 31.5 % Normal 10.0-50.0 [facility] Comment on above: Performed By: #### C BC, CMP, ADIFF, GFR, ANEU #### [address] [address] Monocyte, Absolute 0.7 10 3/mcL Normal 0.2-1.0 [facility] Comment on above: Performed By: #### C BC, CMP, ADIFF, GFR, ANEU #### [address] [address] Monocytes/100 WBC (Bld) 7.7 % Normal 1.7-13.0 [facility] Comment on above: Performed By: #### C BC, CMP, ADIFF, GFR, ANEU #### [address] [address] Neutrophils/100 WBC (Bld) 50.6 % Normal 37.0-80.0 [facility] Comment on above: Performed By: #### C BC, CMP, ADIFF, GFR, ANEU #### [address] [address] .GFRon 06-22-2024 GFR Non- 84 ml/min/1.73sqm Normal [facility] Comment on above: Result Comment: GFR Population mean for , Non- Americans Ages 20-29 = 116 mL/min/1.73 sq.m. Ages 30-39 = 107 mL/min/1.73 sq.m. Ages 40-49 = 99 mL/min/1.73 sq.m. Ages 50-59 = 93 mL/min/1.73 sq.m. Ages 60-69 = 85 mL/min/1.73 sq.m. Ages 70+ = 75 mL/min/1.73 sq.m. Chronic Kidney Disease: Less than 60 mL/min/1.73 square meters End Stage Renal Disease: Less than 15 mL/min/1.73 square meters Performed By: #### C BC, CMP, ADIFF, GFR, ANEU #### [address] [address] GFR 102 ml/min/1.73sqm Normal [facility] Comment on above: Result Comment: GFR Population mean for , Non- Americans Ages 20-29 = 116 mL/min/1.73 sq.m. Ages 30-39 = 107 mL/min/1.73 sq.m. Ages 40-49 = 99 mL/min/1.73 sq.m. Ages 50-59 = 93 mL/min/1.73 sq.m. Ages 60-69 = 85 mL/min/1.73 sq.m. Ages 70+ = 75 mL/min/1.73 sq.m. Chronic Kidney Disease: Less than 60 mL/min/1.73 square meters End Stage Renal Disease: Less than 15 mL/min/1.73 square meters Performed By: #### C BC, CMP, ADIFF, GFR, ANEU #### [place] [address] .NEUABSon 06-22-2024 Neutrophil, Absolute 4.4 10 3/mcL Normal 2.9-6.2 [facility] Comment on above: Performed By: #### C BC, CMP, ADIFF, GFR, ANEU #### [place] [address] CBCon 06-22-2024 Erythrocyte distribution width (RBC) [Ratio] 13.9 % Normal 11.5-14.5 [facility] Comment on above: Performed By: #### C BC, CMP, ADIFF, GFR, ANEU #### [place] [address] Hematocrit (Bld) [Volume fraction] 37.7 % Normal 37.0-47.0 [facility] Comment on above: Performed By: #### C BC, CMP, ADIFF, GFR, ANEU #### [place] [address] Hgb 12.7 G/dL Normal 12.0-16.0 [facility] Comment on above: Performed By: #### C BC, CMP, ADIFF, GFR, ANEU #### [place] [address] MCH (RBC) [Entitic mass] 29.5 pg Normal 27.0-31.2 [facility] Comment on above: Performed By: #### C BC, CMP, ADIFF, GFR, ANEU #### [place] [address] MCHC 33.8 G/dL Normal 33.0-37.0 [facility] Comment on above: Performed By: #### C BC, CMP, ADIFF, GFR, ANEU #### [place] [address] MCV (RBC) [Entitic vol] 87.3 fL Normal 80.0-94.0 [facility] Comment on above: Performed By: #### C BC, CMP, ADIFF, GFR, ANEU #### [address] [address] Platelet 260 10 3/mcL Normal 130-400 [facility] Comment on above: Performed By: #### C BC, CMP, ADIFF, GFR, ANEU #### [address] [address] Platelet mean volume (Bld) [Entitic vol] 8.9 fL Normal 7.4-10.4 [facility] Comment on above: Performed By: #### C BC, CMP, ADIFF, GFR, ANEU #### [address] [address] RBC 4.31 10 6/mcL Normal 4.20-5.40 [facility] Comment on above: Performed By: #### C BC, CMP, ADIFF, GFR, ANEU #### [place] [id number] WBC 8.7 10 3/mcL Normal 4.6-10.8 [facility] Comment on above: Performed By: #### C BC, CMP, ADIFF, GFR, ANEU #### [address] [address] CMPon 06-22-2024 Albumin Level 4.4 G/dL Normal 3.5-5.0 [facility] Comment on above: Performed By: #### C BC, CMP, ADIFF, GFR, ANEU #### [address] [address] Albumin/Globulin [Mass ratio] 1.4 {ratio} Normal 1.1-2.5 [facility] Comment on above: Performed By: #### C BC, CMP, ADIFF, GFR, ANEU #### [address] [address] ALP [Catalytic activity/Vol] 90 U/L Normal 40-135 [facility] Comment on above: Performed By: #### C BC, CMP, ADIFF, GFR, ANEU #### [address] [address] ALT [Catalytic activity/Vol] 24 U/L Normal 14-59 [facility] Comment on above: Performed By: #### C BC, CMP, ADIFF, GFR, ANEU #### [address] [address] AST [Catalytic activity/Vol] 21 U/L Normal 10-40 [facility] Comment on above: Performed By: #### C BC, CMP, ADIFF, GFR, ANEU #### [address] [address] Bili Total 0.3 mg/dL Normal 0.2-1.0 [facility] Comment on above: Result Comment: Use of this assay is not recommended for patients undergoing treatment with eltrombopag due to the potential for falsely elevated results. Performed By: #### C BC, CMP, ADIFF, GFR, ANEU #### [place] [address] BUN/Creatinine Ratio 28 ratio High 7-27 [facility] Comment on above: Performed By: #### C BC, CMP, ADIFF, GFR, ANEU #### [address] [address] Calcium [Mass/Vol] 9.4 mg/dL Normal 8.4-10.2 [facility] Comment on above: Performed By: #### C BC, CMP, ADIFF, GFR, ANEU #### [address] [address] Chloride [Moles/Vol] 103 mmol/L Normal 98-107 [facility] Comment on above: Performed By: #### C BC, CMP, ADIFF, GFR, ANEU #### [address] [address] CO2 [Moles/Vol] 29 mmol/L Normal 22-29 [facility] Comment on above: Performed By: #### C BC, CMP, ADIFF, GFR, ANEU #### [place] [phone] Creatinine [Mass/Vol] 0.74 mg/dL Normal 0.55-1.02 [facility] Comment on above: Result Comment: Test ing performed on Siemens Dimension EXL analyzer using a modified kinetic Aranza technique. Performed By: #### C BC, CMP, ADIFF, GFR, ANEU #### [address] [address] Electrolyte Balance 6.0 mEq/L Normal 4.0-15.0 [facility] Comment on above: Performed By: #### C BC, CMP, ADIFF, GFR, ANEU #### [address] [address] Globulin 3.2 G/dL Normal [facility] Comment on above: Performed By: #### C BC, CMP, ADIFF, GFR, ANEU #### [address] [address] Glucose [Mass/Vol] 85 mg/dL Normal 70-105 [facility] Comment on above: Performed By: #### C BC, CMP, ADIFF, GFR, ANEU #### [address] [address] Potassium [Moles/Vol] 3.9 mmol/L Normal 3.5-5.1 [facility] Comment on above: Performed By: #### C BC, CMP, ADIFF, GFR, ANEU #### [address] [address] Sodium [Moles/Vol] 138 mmol/L Normal 136-145 [facility] Comment on above: Performed By: #### C BC, CMP, ADIFF, GFR, ANEU #### [address] [address] Total Protein 7.6 G/dL Normal 6.4-8.2 [facility] Comment on above: Performed By: #### C BC, CMP, ADIFF, GFR, ANEU #### [address] [address] Urea nitrogen [Mass/Vol] 21 mg/dL High 7-18 [facility] Comment on above: Performed By: #### C BC, CMP, ADIFF, GFR, ANEU #### [address] [address] .Auto Diffon 03-31-2024 Basophil, Absolute 0.1 10 3/mcL Normal 0.0-0.2 [facility] ([place]) Comment on above: Performed By: #### A RENITA, ADIFF, CBC, CMP, GFR #### [address] [address] Basophils/100 WBC (Bld) 1.0 % Normal 0.0-2.5 [facility] ([place]) Comment on above: Performed By: #### A RENITA, ADIFF, CBC, CMP, GFR #### [address] [address] Eosinophil, Absolute 0.6 10 3/mcL High 0.0-0.4 [facility] ([place]) Comment on above: Performed By: #### A RENITA, ADIFF, CBC, CMP, GFR #### [address] [address] Eosinophils/100 WBC (Bld) 7.0 % Normal 0.0-7.0 [facility] ([place]) Comment on above: Performed By: #### A RENITA, ADIFF, CBC, CMP, GFR #### [address] [address] Lymphocyte, Absolute 2.1 10 3/mcL Normal 0.8-3.9 [facility] ([place]) Comment on above: Performed By: #### A RENITA, ADIFF, CBC, CMP, GFR #### [address] [address] Lymphocytes/100 WBC (Bld) 26.3 % Normal 10.0-50.0 [facility] ([place]) Comment on above: Performed By: #### A RENITA, ADIFF, CBC, CMP, GFR #### [address] [address] Monocyte, Absolute 0.6 10 3/mcL Normal 0.2-1.0 [facility] ([place]) Comment on above: Performed By: #### A RENITA, ADIFF, CBC, CMP, GFR #### [address] [address] Monocytes/100 WBC (Bld) 7.5 % Normal 1.7-13.0 [facility] ([place]) Comment on above: Performed By: #### A RENITA, ADIFF, CBC, CMP, GFR #### [address] [address] Neutrophils/100 WBC (Bld) 58.2 % Normal 37.0-80.0 [facility] ([place]) Comment on above: Performed By: #### A RENITA, ADIFF, CBC, CMP, GFR #### [address] [address] .GFRon 03-31-2024 GFR Non- 81 ml/min/1.73sqm Normal [facility] ([place]) Comment on above: Result Comment: GFR Population mean for , Non- Americans Ages 20-29 = 116 mL/min/1.73 sq.m. Ages 30-39 = 107 mL/min/1.73 sq.m. Ages 40-49 = 99 mL/min/1.73 sq.m. Ages 50-59 = 93 mL/min/1.73 sq.m. Ages 60-69 = 85 mL/min/1.73 sq.m. Ages 70+ = 75 mL/min/1.73 sq.m. Chronic Kidney Disease: Less than 60 mL/min/1.73 square meters End Stage Renal Disease: Less than 15 mL/min/1.73 square meters Performed By: #### A RENITA, ADIFF, CBC, CMP, GFR #### [address] [address] GFR 98 ml/min/1.73sqm Normal [facility] ([place]) Comment on above: Result Comment: GFR Population mean for , Non- Americans Ages 20-29 = 116 mL/min/1.73 sq.m. Ages 30-39 = 107 mL/min/1.73 sq.m. Ages 40-49 = 99 mL/min/1.73 sq.m. Ages 50-59 = 93 mL/min/1.73 sq.m. Ages 60-69 = 85 mL/min/1.73 sq.m. Ages 70+ = 75 mL/min/1.73 sq.m. Chronic Kidney Disease: Less than 60 mL/min/1.73 square meters End Stage Renal Disease: Less than 15 mL/min/1.73 square meters Performed By: #### A RENITA, ADIFF, CBC, CMP, GFR #### [address] [address] .NEUABSon 03-31-2024 Neutrophil, Absolute 4.7 10 3/mcL Normal 2.9-6.2 [facility] ([place]) Comment on above: Performed By: #### A RENITA, ADIFF, CBC, CMP, GFR #### [address] [address] CBCon 03-31-2024 Erythrocyte distribution width (RBC) [Ratio] 13.6 % Normal 11.5-14.5 [facility] ([place]) Comment on above: Performed By: #### A RENITA, ADIFF, CBC, CMP, GFR #### [address] [address] Hematocrit (Bld) [Volume fraction] 42.4 % Normal 37.0-47.0 [facility] ([place]) Comment on above: Performed By: #### A RENITA, ADIFF, CBC, CMP, GFR #### [address] [address] Hgb 14.3 G/dL Normal 12.0-16.0 [facility] ([place]) Comment on above: Performed By: #### A RENITA, ADIFF, CBC, CMP, GFR #### [address] [address] MCH (RBC) [Entitic mass] 29.5 pg Normal 27.0-31.2 [facility] ([place]) Comment on above: Performed By: #### A RENITA, ADIFF, CBC, CMP, GFR #### [address] [address] MCHC 33.8 G/dL Normal 33.0-37.0 [facility] Comment on above: Performed By: #### A RENITA, ADIFF, CBC, CMP, GFR #### [address] [address] MCV (RBC) [Entitic vol] 87.5 fL Normal 80.0-94.0 [facility] Comment on above: Performed By: #### A RENITA, ADIFF, CBC, CMP, GFR #### [address] [address] Platelet 333 10 3/mcL Normal 130-400 [facility] Comment on above: Performed By: #### A RENITA, ADIFF, CBC, CMP, GFR #### [address] [address] Platelet mean volume (Bld) [Entitic vol] 8.9 fL Normal 7.4-10.4 [facility] Comment on above: Performed By: #### A RENITA, ADIFF, CBC, CMP, GFR #### [address] [address] RBC 4.85 10 6/mcL Normal 4.20-5.40 [facility] Comment on above: Performed By: #### A RENITA, ADIFF, CBC, CMP, GFR #### [address] [address] WBC 8.1 10 3/mcL Normal 4.6-10.8 [facility] Comment on above: Performed By: #### A RENITA, ADIFF, CBC, CMP, GFR #### [address] [address] CMPon 03-31-2024 Albumin Level 4.2 G/dL Normal 3.5-5.0 [facility] Comment on above: Performed By: #### A RENITA, ADIFF, CBC, CMP, GFR #### [address] [address] Albumin/Globulin [Mass ratio] 1.2 {ratio} Normal 1.1-2.5 [facility] Comment on above: Performed By: #### A RENITA, ADIFF, CBC, CMP, GFR #### [address] [address] ALP [Catalytic activity/Vol] 80 U/L Normal 40-135 [facility] Comment on above: Performed By: #### A RENITA, ADIFF, CBC, CMP, GFR #### [address] [address] ALT [Catalytic activity/Vol] 17 U/L Normal 14-59 [facility] Comment on above: Performed By: #### A RENITA, ADIFF, CBC, CMP, GFR #### [address] [address] AST [Catalytic activity/Vol] 12 U/L Normal 10-40 [facility] Comment on above: Performed By: #### A RENITA, ADIFF, CBC, CMP, GFR #### [address] [address] Bili Total 0.4 mg/dL Normal 0.2-1.0 [facility] ([place]) Comment on above: Result Comment: Use of this assay is not recommended for patients undergoing treatment with eltrombopag due to the potential for falsely elevated results. Performed By: #### A RENITA, ADIFF, CBC, CMP, GFR #### [address] [address] BUN/Creatinine Ratio 22 ratio Normal 7-27 [facility] ([place]) Comment on above: Performed By: #### A RENITA, ADIFF, CBC, CMP, GFR #### [address] [address] Calcium [Mass/Vol] 9.8 mg/dL Normal 8.4-10.2 [facility] ([place]) Comment on above: Performed By: #### A RENITA, ADIFF, CBC, CMP, GFR #### [address] [address] Chloride [Moles/Vol] 104 mmol/L Normal 98-107 [facility] ([place]) Comment on above: Performed By: #### A RENITA, ADIFF, CBC, CMP, GFR #### [place] [address] CO2 [Moles/Vol] 30 mmol/L High 22-29 [facility] ([place]) Comment on above: Performed By: #### A RENITA, ADIFF, CBC, CMP, GFR #### [place] [address] Creatinine [Mass/Vol] 0.76 mg/dL Normal 0.55-1.02 [facility] ([place] Comment on above: Performed By: #### A RENITA, ADIFF, CBC, CMP, GFR #### [place] [address] Electrolyte Balance 9.0 mEq/L Normal 4.0-15.0 [facility] ([place]) Comment on above: Performed By: #### A RENITA, ADIFF, CBC, CMP, GFR #### [place] [address] Globulin 3.6 G/dL Normal [facility] ([place]) Comment on above: Performed By: #### A RENITA, ADIFF, CBC, CMP, GFR #### [place] [address] Glucose [Mass/Vol] 118 mg/dL High 70-105 [facility] ([place]) Comment on above: Performed By: #### A RENITA, ADIFF, CBC, CMP, GFR #### [place] [address] Potassium [Moles/Vol] 4.8 mmol/L Normal 3.5-5.1 [facility] [place] Comment on above: Performed By: #### A RENITA, ADIFF, CBC, CMP, GFR #### [place] [address] Sodium [Moles/Vol] 143 mmol/L Normal 136-145 [facility] ([place]) Comment on above: Performed By: #### A RENITA, ADIFF, CBC, CMP, GFR #### [place] [id number] Total Protein 7.8 G/dL Normal 6.4-8.2 [facility] ([place]) Comment on above: Performed By: #### A RENITA, ADIFF, CBC, CMP, GFR #### [address] [address] Urea nitrogen [Mass/Vol] 17 mg/dL Normal 7-18 [facility] ([place]) Comment on above: Performed By: #### A RENITA, ADIFF, CBC, CMP, GFR #### [address] [address] .Auto Diffon 12-30-2023 Basophil, Absolute 0.1 10 3/mcL Normal 0.0-0.2 [facility] ([place]) Comment on above: Performed By: #### A RENITA, ADIFF, CBC, CMP, GFR #### [address] [address] Basophils/100 WBC (Bld) 0.8 % Normal 0.0-2.5 [facility] ([place]) Comment on above: Performed By: #### A RENITA, ADIFF, CBC, CMP, GFR #### [address] [address] Eosinophil, Absolute 0.1 10 3/mcL Normal 0.0-0.4 [facility] ([place]) Comment on above: Performed By: #### A RENITA, ADIFF, CBC, CMP, GFR #### [address] [address] Eosinophils/100 WBC (Bld) 1.2 % Normal 0.0-7.0 [facility] ([place]) Comment on above: Performed By: #### A RENITA, ADIFF, CBC, CMP, GFR #### [address] [address] Lymphocyte, Absolute 2.3 10 3/mcL Normal 0.8-3.9 [facility] ([place]) Comment on above: Performed By: #### A RENITA, ADIFF, CBC, CMP, GFR #### [address] [address] Lymphocytes/100 WBC (Bld) 25.3 % Normal 10.0-50.0 [facility] ([place]) Comment on above: Performed By: #### A RENITA, ADIFF, CBC, CMP, GFR #### [address] [address] Monocyte, Absolute 0.6 10 3/mcL Normal 0.2-1.0 [facility] ([place]) Comment on above: Performed By: #### A RENITA, ADIFF, CBC, CMP, GFR #### [address] [address] Monocytes/100 WBC (Bld) 6.1 % Normal 1.7-13.0 [facility] ([place]) Comment on above: Performed By: #### A RENITA, ADIFF, CBC, CMP, GFR #### [address] [address] Neutrophils/100 WBC (Bld) 66.6 % Normal 37.0-80.0 [facility] ([place]) Comment on above: Performed By: #### A RENITA, ADIFF, CBC, CMP, GFR #### [address] [address] .GFRon 12-30-2023 GFR Non- 78 ml/min/1.73sqm Normal [facility] ([place]) Comment on above: Result Comment: GFR Population mean for , Non- Americans Ages 20-29 = 116 mL/min/1.73 sq.m. Ages 30-39 = 107 mL/min/1.73 sq.m. Ages 40-49 = 99 mL/min/1.73 sq.m. Ages 50-59 = 93 mL/min/1.73 sq.m. Ages 60-69 = 85 mL/min/1.73 sq.m. Ages 70+ = 75 mL/min/1.73 sq.m. Chronic Kidney Disease: Less than 60 mL/min/1.73 square meters End Stage Renal Disease: Less than 15 mL/min/1.73 square meters Performed By: #### A RENITA, ADIFF, CBC, CMP, GFR #### [address] [address] GFR 95 ml/min/1.73sqm Normal [facility] ([place]) Comment on above: Result Comment: GFR Population mean for , Non- Americans Ages 20-29 = 116 mL/min/1.73 sq.m. Ages 30-39 = 107 mL/min/1.73 sq.m. Ages 40-49 = 99 mL/min/1.73 sq.m. Ages 50-59 = 93 mL/min/1.73 sq.m. Ages 60-69 = 85 mL/min/1.73 sq.m. Ages 70+ = 75 mL/min/1.73 sq.m. Chronic Kidney Disease: Less than 60 mL/min/1.73 square meters End Stage Renal Disease: Less than 15 mL/min/1.73 square meters Performed By: #### A RENITA, ADIFF, CBC, CMP, GFR #### [address] [address] .NEUABSon 12-30-2023 Neutrophil, Absolute 6.2 10 3/mcL Normal 2.9-6.2 [facility] ([place]) Comment on above: Performed By: #### A RENITA, ADIFF, CBC, CMP, GFR #### [address] [address] CBCon 12-30-2023 Erythrocyte distribution width (RBC) [Ratio] 13.3 % Normal 11.5-14.5 [facility] ([place]) Comment on above: Performed By: #### A RENITA, ADIFF, CBC, CMP, GFR #### [address] [address] Hematocrit (Bld) [Volume fraction] 38.9 % Normal 37.0-47.0 [facility] ([place]) Comment on above: Performed By: #### A RENITA, ADIFF, CBC, CMP, GFR #### [address] [address] Hgb 13.2 G/dL Normal 12.0-16.0 [facility] ([place]) Comment on above: Performed By: #### A RENIAT, ADIFF, CBC, CMP, GFR #### [address] [address] MCH (RBC) [Entitic mass] 29.2 pg Normal 27.0-31.2 [facility] ([place]) Comment on above: Performed By: #### A RENITA, ADIFF, CBC, CMP, GFR #### [address] [address] MCHC 34.0 G/dL Normal 33.0-37.0 [facility] ([place]) Comment on above: Performed By: #### A RENITA, ADIFF, CBC, CMP, GFR #### [address] [address] MCV (RBC) [Entitic vol] 85.7 fL Normal 80.0-94.0 [facility] ([place]) Comment on above: Performed By: #### A RENITA, ADIFF, CBC, CMP, GFR #### [place] [phone] Platelet 317 10 3/mcL Normal 130-400 [facility] ([place]) Comment on above: Performed By: #### A RENITA, ADIFF, CBC, CMP, GFR #### [place] [phone] Platelet mean volume (Bld) [Entitic vol] 8.7 fL Normal 7.4-10.4 [facility] ([place]) Comment on above: Performed By: #### A RENITA, ADIFF, CBC, CMP, GFR #### [place] [phone] RBC 4.53 10 6/mcL Normal 4.20-5.40 [facility] ([place]) Comment on above: Performed By: #### A RENITA, ADIFF, CBC, CMP, GFR #### [place] [phone] WBC 9.2 10 3/mcL Normal 4.6-10.8 [facility] ([place]) Comment on above: Performed By: #### A RENITA, ADIFF, CBC, CMP, GFR #### [place] [phone] CMPon 12-30-2023 Albumin Level 4.0 G/dL Normal 3.5-5.0 [facility] ([place]) Comment on above: Performed By: #### A RENITA, ADIFF, CBC, CMP, GFR #### [address] [address] Albumin/Globulin [Mass ratio] 1.2 {ratio} Normal 1.1-2.5 [facility] ([place]) Comment on above: Performed By: #### A RENITA, ADIFF, CBC, CMP, GFR #### [address] [address] ALP [Catalytic activity/Vol] 59 U/L Normal 40-135 [facility] ([place]) Comment on above: Performed By: #### A RENITA, ADIFF, CBC, CMP, GFR #### [address] [address] ALT [Catalytic activity/Vol] 24 U/L Normal 14-59 [facility] ([place]) Comment on above: Performed By: #### A RENITA, ADIFF, CBC, CMP, GFR #### [address] [address] AST [Catalytic activity/Vol] 17 U/L Normal 10-40 [facility] ([place]) Comment on above: Performed By: #### A RENITA, ADIFF, CBC, CMP, GFR #### [address] [address] Bili Total 0.4 mg/dL Normal 0.2-1.0 [facility] ([place]) Comment on above: Result Comment: Use of this assay is not recommended for patients undergoing treatment with eltrombopag due to the potential for falsely elevated results. Performed By: #### A RENITA, ADIFF, CBC, CMP, GFR #### [address] [address] BUN/Creatinine Ratio 30 ratio High 7-27 [facility] ([place]) Comment on above: Performed By: #### A RENITA, ADIFF, CBC, CMP, GFR #### [address] [address] Calcium [Mass/Vol] 9.0 mg/dL Normal 8.4-10.2 [facility] ([place]) Comment on above: Performed By: #### A RENITA, ADIFF, CBC, CMP, GFR #### [address] [address] Chloride [Moles/Vol] 100 mmol/L Normal 98-107 [facility] ([place]) Comment on above: Performed By: #### A RENITA, ADIFF, CBC, CMP, GFR #### [address] [address] CO2 [Moles/Vol] 24 mmol/L Normal 22-29 [facility] ([place]) Comment on above: Performed By: #### A RENITA, ADIFF, CBC, CMP, GFR #### [address] [address] Creatinine [Mass/Vol] 0.79 mg/dL Normal 0.55-1.02 [facility] [place] Comment on above: Performed By: #### A RENITA, ADIFF, CBC, CMP, GFR #### [address] [address] Electrolyte Balance 14.0 mEq/L Normal 4.0-15.0 [facility] ([place]) Comment on above: Performed By: #### A RENITA, ADIFF, CBC, CMP, GFR #### [address] [address] Globulin 3.2 G/dL Normal [facility] ([place]) Comment on above: Performed By: #### A RENITA, ADIFF, CBC, CMP, GFR #### [address] [address] Glucose [Mass/Vol] 116 mg/dL High 70-105 [facility] ([place]) Comment on above: Performed By: #### A RENITA, ADIFF, CBC, CMP, GFR #### [address] [address] Potassium [Moles/Vol] 3.2 mmol/L Low 3.5-5.1 [facility] [place] Comment on above: Performed By: #### A RENITA, ADIFF, CBC, CMP, GFR #### [address] [address] Sodium [Moles/Vol] 138 mmol/L Normal 136-145 [facility] ([place]) Comment on above: Performed By: #### A RENITA, ADIFF, CBC, CMP, GFR #### [address] [address] Total Protein 7.2 G/dL Normal 6.4-8.2 [facility] ([place]) Comment on above: Performed By: #### A RENITA, ADIFF, CBC, CMP, GFR #### [address] [address] Urea nitrogen [Mass/Vol] 24 mg/dL High 7-18 [facility] ([place]) Comment on above: Performed By: #### A RENITA, ADIFF, CBC, CMP, GFR #### [address] [address] LABORATORYOrdered By: SYSTEM SYSTEM on 12-30-2023 Albumin BCP dye [Mass/Vol] 4.0 G/dL Normal 3.5 - 5.0 G/dL AO ADM SS Albumin/Globulin [Mass ratio] 1.2 {ratio} Normal 1.1 - 2.5 ratio AO ADM SS ALP [Catalytic activity/Vol] 59 U/L Normal 40 - 135 U/L AO ADM SS ALT With P-5'-P [Catalytic activity/Vol] 24 U/L Normal 14 - 59 U/L AO ADM SS AST With P-5'-P [Catalytic activity/Vol] 17 U/L Normal 10 - 40 U/L AO ADM SS Basophil, Absolute 0.1 103/mcL Normal 0.0 - 0.2 10^3/mcL AO Workflow SS Basophils/100 WBC (Bld) 0.8 % Normal 0.0 - 2.5 % AO Workflow SS Bilirubin [Mass/Vol] 0.4 mg/dL Normal 0.2 - 1 .0 mg/dL AO ADM SS Comment on above: Interpretive Data: U se of this assay is not recommended for patients undergoing treatment with eltrombopag due to the potential for falsely elevated results. Calcium [Mass/Vol] 9.0 mg/dL Normal 8.4 - 10. 2 mg/dL AO ADM SS Chloride [Moles/Vol] 100 mmol/L Normal 98 - 10 7 mmol/L AO ADM SS CO2 [Moles/Vol] 24 mmol/L Normal 22 - 29 mmol/L AO ADM SS Creatinine [Mass/Vol] 0.79 mg/dL Normal 0.55 - 1.02 mg/dL AO ADM SS Electrolyte Balance 14.0 mEq/L Normal 4.0 - 15 .0 mEq/L AO ADM SS Eosinophil, Absolute 0.1 103/mcL Normal 0.0 - 0 .4 10^3/mcL AO Workflow SS Eosinophils/100 WBC (Bld) 1.2 % Normal 0.0 - 7.0 % AO Workflow SS Erythrocyte distribution width (RBC) [Ratio] 13.3 % Normal 11.5 - 14.5 % AO Workflow SS GFR/1.73 sq M.predicted among blacks MDRD (S/P/Bld) [Vol rate/Area] 95 ml/min/1.73sqm Invalid Interpretation Code AO Chemistry S Comment on above: Interpretive Data: GFR Population mean for , Non- Americans Ages 20-29 = 116 mL/min/1.73 sq.m. Ages 30-39 = 107 mL/min/1.73 sq.m. Ages 40-49 = 99 mL/min/1.73 sq.m. Ages 50-59 = 93 mL/min/1.73 sq.m. Ages 60-69 = 85 mL/min/1.73 sq.m. Ages 70+ = 75 mL/min/1.73 sq.m. Chronic Kidney Disease: Less than 60 mL/min/1.73 square meters End Stage Renal Disease: Less than 15 mL/min/1.73 square meters GFR/1.73 sq M.predicted among non-blacks MDRD (S/P/Bld) [Vol rate/Area] 78 ml/min/1.73sqm Invalid Interpretation Code AO Chemistry S Comment on above: Interpretive Data: GFR Population mean for , Non- Americans Ages 20-29 = 116 mL/min/1.73 sq.m. Ages 30-39 = 107 mL/min/1.73 sq.m. Ages 40-49 = 99 mL/min/1.73 sq.m. Ages 50-59 = 93 mL/min/1.73 sq.m. Ages 60-69 = 85 mL/min/1.73 sq.m. Ages 70+ = 75 mL/min/1.73 sq.m. Chronic Kidney Disease: Less than 60 mL/min/1.73 square meters End Stage Renal Disease: Less than 15 mL/min/1.73 square meters Globulin 3.2 G/dL Invalid Interpretation Code AO ADM SS Glucose [Mass/Vol] 116 mg/dL High 70 - 105 mg/dL AO ADM SS Hematocrit (Bld) [Volume fraction] 38.9 % Normal 37.0 - 47.0 % AO Workflow SS Hemoglobin (Bld) [Mass/Vol] 13.2 G/dL Normal 12.0 - 16.0 G/dL AO Workflow SS Lymphocyte, Absolute 2.3 103/mcL Normal 0.8 - 3 .9 10^3/mcL AO Workflow SS Lymphocytes/100 WBC (Bld) 25.3 % Normal 10.0 - 50.0 % AO Workflow SS MCH (RBC) [Entitic mass] 29.2 pg Normal 27.0 - 31.2 pg AO Workflow SS MCHC 34.0 G/dL Normal 33.0 - 37.0 G/dL AO Workflow SS MCV (RBC) [Entitic vol] 85.7 fL Normal 80.0 - 94.0 fL AO Workflow SS Monocyte, Absolute 0.6 103/mcL Normal 0.2 - 1.0 10^3/mcL AO Workflow SS Monocytes/100 WBC (Bld) 6.1 % Normal 1.7 - 13.0 % AO Workflow SS Neutrophil, Absolute 6.2 103/mcL Normal 2.9 - 6 .2 10^3/mcL AO Workflow SS Neutrophils/100 WBC (Bld) 66.6 % Normal 37.0 - 80.0 % AO Workflow SS Platelet mean volume (Bld) [Entitic vol] 8.7 fL Normal 7.4 - 10.4 fL AO Workflow SS Platelets (Bld) [#/Vol] 317 103/mcL Normal 130 - 400 10^3/mcL AO Workflow SS Potassium [Moles/Vol] 3.2 mmol/L Low 3.5 - 5.1 mmol/L AO ADM SS Protein [Mass/Vol] 7.2 G/dL Normal 6.4 - 8.2 G/dL AO ADM SS RBC (Bld) [#/Vol] 4.53 106/mcL Normal 4.20 - 5.4 0 10^6/mcL AO Workflow SS Sodium [Moles/Vol] 138 mmol/L Normal 136 - 145 mmol/L AO ADM SS Urea nitrogen [Mass/Vol] 24 mg/dL High 7 - 18 mg/dL AO ADM SS Urea nitrogen/Creatinine [Mass ratio] 30 ratio High 7 - 27 ratio AO ADM SS WBC (Bld) [#/Vol] 9.2 103/mcL Normal 4.6 - 10.8 10^3/mcL AO Workflow SS .Auto Diffon 10-03-2023 Basophil, Absolute 0.1 10 3/mcL Normal 0.0-0.2 [facility] ([place]) Comment on above: Performed By: #### A RENITA, ADIFF, CBC, CMP, GFR #### [address] [address] Basophils/100 WBC (Bld) 1.1 % Normal 0.0-2.5 [facility] ([place]) Comment on above: Performed By: #### A RENITA, ADIFF, CBC, CMP, GFR #### [address] [address] Eosinophil, Absolute 0.3 10 3/mcL Normal 0.0-0.4 [facility] ([place]) Comment on above: Performed By: #### A RENITA, ADIFF, CBC, CMP, GFR #### [address] [address] Eosinophils/100 WBC (Bld) 3.4 % Normal 0.0-7.0 [facility] ([place]) Comment on above: Performed By: #### A RENITA, ADIFF, CBC, CMP, GFR #### [address] [address] Lymphocyte, Absolute 2.6 10 3/mcL Normal 0.8-3.9 [facility] ([place]) Comment on above: Performed By: #### A RENITA, ADIFF, CBC, CMP, GFR #### [address] [address] Lymphocytes/100 WBC (Bld) 30.9 % Normal 10.0-50.0 [facility] ([place]) Comment on above: Performed By: #### A RENITA, ADIFF, CBC, CMP, GFR #### [address] [address] Monocyte, Absolute 0.6 10 3/mcL Normal 0.2-1.0 [facility] ([place]) Comment on above: Performed By: #### A RENITA, ADIFF, CBC, CMP, GFR #### [address] [address] Monocytes/100 WBC (Bld) 7.1 % Normal 1.7-13.0 [facility] ([place]) Comment on above: Performed By: #### A RENITA, ADIFF, CBC, CMP, GFR #### [address] [address] Neutrophils/100 WBC (Bld) 57.5 % Normal 37.0-80.0 [facility] ([place]) Comment on above: Performed By: #### A RENITA, ADIFF, CBC, CMP, GFR #### [address] [address] .GFRon 10-03-2023 GFR Non- 77 ml/min/1.73sqm Normal [facility] ([place]) Comment on above: Result Comment: GFR Population mean for , Non- Americans Ages 20-29 = 116 mL/min/1.73 sq.m. Ages 30-39 = 107 mL/min/1.73 sq.m. Ages 40-49 = 99 mL/min/1.73 sq.m. Ages 50-59 = 93 mL/min/1.73 sq.m. Ages 60-69 = 85 mL/min/1.73 sq.m. Ages 70+ = 75 mL/min/1.73 sq.m. Chronic Kidney Disease: Less than 60 mL/min/1.73 square meters End Stage Renal Disease: Less than 15 mL/min/1.73 square meters Performed By: #### A RENITA, ADIFF, CBC, CMP, GFR #### [address] [address] GFR 93 ml/min/1.73sqm Normal [facility] ([place]) Comment on above: Result Comment: GFR Population mean for , Non- Americans Ages 20-29 = 116 mL/min/1.73 sq.m. Ages 30-39 = 107 mL/min/1.73 sq.m. Ages 40-49 = 99 mL/min/1.73 sq.m. Ages 50-59 = 93 mL/min/1.73 sq.m. Ages 60-69 = 85 mL/min/1.73 sq.m. Ages 70+ = 75 mL/min/1.73 sq.m. Chronic Kidney Disease: Less than 60 mL/min/1.73 square meters End Stage Renal Disease: Less than 15 mL/min/1.73 square meters Performed By: #### A RENITA, ADIFF, CBC, CMP, GFR #### [place] [address] .NEUABSon 10-03-2023 Neutrophil, Absolute 4.8 10 3/mcL Normal 2.9-6.2 [facility] ([place]) Comment on above: Performed By: #### A RENITA, ADIFF, CBC, CMP, GFR #### [place] [address] CBCon 10-03-2023 Erythrocyte distribution width (RBC) [Ratio] 13.3 % Normal 11.5-14.5 [facility] ([place]) Comment on above: Performed By: #### A RENITA, ADIFF, CBC, CMP, GFR #### [place] [address] Hematocrit (Bld) [Volume fraction] 38.4 % Normal 37.0-47.0 [facility] ([place]) Comment on above: Performed By: #### A RENITA, ADIFF, CBC, CMP, GFR #### [place] [address] Hgb 12.8 G/dL Normal 12.0-16.0 [facility] ([place]) Comment on above: Performed By: #### A RENITA, ADIFF, CBC, CMP, GFR #### [place] [phone] MCH (RBC) [Entitic mass] 28.8 pg Normal 27.0-31.2 [facility] ([place]) Comment on above: Performed By: #### A RENITA, ADIFF, CBC, CMP, GFR #### [address] [address] MCHC 33.2 G/dL Normal 33.0-37.0 [facility] ([place]) Comment on above: Performed By: #### A RENITA, ADIFF, CBC, CMP, GFR #### [address] [address] MCV (RBC) [Entitic vol] 86.5 fL Normal 80.0-94.0 [facility] ([place]) Comment on above: Performed By: #### A RENITA, ADIFF, CBC, CMP, GFR #### [address] [address] Platelet 268 10 3/mcL Normal 130-400 [facility] ([place]) Comment on above: Performed By: #### A RENITA, ADIFF, CBC, CMP, GFR #### [address] [address] Platelet mean volume (Bld) [Entitic vol] 9.3 fL Normal 7.4-10.4 [facility] ([place]) Comment on above: Performed By: #### A RENITA, ADIFF, CBC, CMP, GFR #### [address] [address] RBC 4.44 10 6/mcL Normal 4.20-5.40 [facility] ([place]) Comment on above: Performed By: #### A RENITA, ADIFF, CBC, CMP, GFR #### [address] [address] WBC 8.3 10 3/mcL Normal 4.6-10.8 [facility] ([place]) Comment on above: Performed By: #### A RENITA, ADIFF, CBC, CMP, GFR #### [address] [address] CMPon 10-03-2023 Albumin Level 4.2 G/dL Normal 3.5-5.0 [facility] ([place]) Comment on above: Performed By: #### A RENITA, ADIFF, CBC, CMP, GFR #### [address] [address] Albumin/Globulin [Mass ratio] 1.4 {ratio} Normal 1.1-2.5 [facility] ([place]) Comment on above: Performed By: #### A RENITA, ADIFF, CBC, CMP, GFR #### [address] [address] ALP [Catalytic activity/Vol] 51 U/L Normal 40-135 [facility] ([place]) Comment on above: Performed By: #### A RENITA, ADIFF, CBC, CMP, GFR #### [address] [address] ALT [Catalytic activity/Vol] 22 U/L Normal 14-59 [facility] ([place]) Comment on above: Performed By: #### A RENITA, ADIFF, CBC, CMP, GFR #### [address] [address] AST [Catalytic activity/Vol] 15 U/L Normal 10-40 [facility] ([place]) Comment on above: Performed By: #### A RENITA, ADIFF, CBC, CMP, GFR #### [address] [address] Bili Total 0.3 mg/dL Normal 0.2-1.0 [facility] ([place]) Comment on above: Result Comment: Use of this assay is not recommended for patients undergoing treatment with eltrombopag due to the potential for falsely elevated results. Performed By: #### A RENITA, ADIFF, CBC, CMP, GFR #### [address] [address] BUN/Creatinine Ratio 28 ratio High 7-27 [facility] ([place]) Comment on above: Performed By: #### A RENITA, ADIFF, CBC, CMP, GFR #### [address] [address] Calcium [Mass/Vol] 9.2 mg/dL Normal 8.4-10.2 [facility] ([place]) Comment on above: Performed By: #### A RENITA, ADIFF, CBC, CMP, GFR #### [address] [address] Chloride [Moles/Vol] 103 mmol/L Normal 98-107 [facility] ([place]) Comment on above: Performed By: #### A RENITA, ADIFF, CBC, CMP, GFR #### [place] [address] CO2 [Moles/Vol] 25 mmol/L Normal 22-29 [facility] ([place]) Comment on above: Performed By: #### A RENITA, ADIFF, CBC, CMP, GFR #### [address] [address] Creatinine [Mass/Vol] 0.80 mg/dL Normal 0.55-1.02 [facility] [place] Comment on above: Performed By: #### A RENITA, ADIFF, CBC, CMP, GFR #### [address] [address] Electrolyte Balance 12.0 mEq/L Normal 4.0-15.0 [facility] ([place]) Comment on above: Performed By: #### A RENITA, ADIFF, CBC, CMP, GFR #### [address] [address] Globulin 3.0 G/dL Normal [facility] ([place]) Comment on above: Performed By: #### A RENITA, ADIFF, CBC, CMP, GFR #### [address] [address] Glucose [Mass/Vol] 112 mg/dL High 70-105 [facility] ([place]) Comment on above: Performed By: #### A RENITA, ADIFF, CBC, CMP, GFR #### [address] [address] Potassium [Moles/Vol] 3.8 mmol/L Normal 3.5-5.1 [facility] [place] Comment on above: Performed By: #### A RENITA, ADIFF, CBC, CMP, GFR #### [place] [address] [place], [place] [address] Sodium [Moles/Vol] 140 mmol/L Normal 136-145 [facility] ([place]) Comment on above: Performed By: #### A RENITA, ADIFF, CBC, CMP, GFR #### [place] [address] [place], [place] [address] Total Protein 7.2 G/dL Normal 6.4-8.2 [facility] ([place]) Comment on above: Performed By: #### A RENITA, ADIFF, CBC, CMP, GFR #### [place] [address] [place], [place] [address] Urea nitrogen [Mass/Vol] 22 mg/dL High 7-18 [facility] ([place]) Comment on above: Performed By: #### A RENITA, ADIFF, CBC, CMP, GFR #### [place] [address] [place], [place] [address] LABORATORYOrdered By: SYSTEM SYSTEM on 10-03-2023 Albumin BCP dye [Mass/Vol] 4.2 G/dL Normal 3.5 - 5.0 G/dL AO ADM SS Albumin/Globulin [Mass ratio] 1.4 {ratio} Normal 1.1 - 2.5 ratio AO ADM SS ALP [Catalytic activity/Vol] 51 U/L Normal 40 - 135 U/L AO ADM SS ALT With P-5'-P [Catalytic activity/Vol] 22 U/L Normal 14 - 59 U/L AO ADM SS AST With P-5'-P [Catalytic activity/Vol] 15 U/L Normal 10 - 40 U/L AO ADM SS Basophil, Absolute 0.1 103/mcL Normal 0.0 - 0.2 10^3/mcL AO Workflow SS Basophils/100 WBC (Bld) 1.1 % Normal 0.0 - 2.5 % AO Workflow SS Bilirubin [Mass/Vol] 0.3 mg/dL Normal 0.2 - 1 .0 mg/dL AO ADM SS Comment on above: Interpretive Data: U se of this assay is not recommended for patients undergoing treatment with eltrombopag due to the potential for falsely elevated results. Calcium [Mass/Vol] 9.2 mg/dL Normal 8.4 - 10. 2 mg/dL AO ADM SS Chloride [Moles/Vol] 103 mmol/L Normal 98 - 10 7 mmol/L AO ADM SS CO2 [Moles/Vol] 25 mmol/L Normal 22 - 29 mmol/L AO ADM SS Creatinine [Mass/Vol] 0.80 mg/dL Normal 0.55 - 1.02 mg/dL AO ADM SS Electrolyte Balance 12.0 mEq/L Normal 4.0 - 15 .0 mEq/L AO ADM SS Eosinophil, Absolute 0.3 103/mcL Normal 0.0 - 0 .4 10^3/mcL AO Workflow SS Eosinophils/100 WBC (Bld) 3.4 % Normal 0.0 - 7.0 % AO Workflow SS Erythrocyte distribution width (RBC) [Ratio] 13.3 % Normal 11.5 - 14.5 % AO Workflow SS GFR/1.73 sq M.predicted among blacks MDRD (S/P/Bld) [Vol rate/Area] 93 ml/min/1.73sqm Invalid Interpretation Code AO Chemistry S Comment on above: Interpretive Data: GFR Population mean for , Non- Americans Ages 20-29 = 116 mL/min/1.73 sq.m. Ages 30-39 = 107 mL/min/1.73 sq.m. Ages 40-49 = 99 mL/min/1.73 sq.m. Ages 50-59 = 93 mL/min/1.73 sq.m. Ages 60-69 = 85 mL/min/1.73 sq.m. Ages 70+ = 75 mL/min/1.73 sq.m. Chronic Kidney Disease: Less than 60 mL/min/1.73 square meters End Stage Renal Disease: Less than 15 mL/min/1.73 square meters GFR/1.73 sq M.predicted among non-blacks MDRD (S/P/Bld) [Vol rate/Area] 77 ml/min/1.73sqm Invalid Interpretation Code AO Chemistry S Comment on above: Interpretive Data: GFR Population mean for , Non- Americans Ages 20-29 = 116 mL/min/1.73 sq.m. Ages 30-39 = 107 mL/min/1.73 sq.m. Ages 40-49 = 99 mL/min/1.73 sq.m. Ages 50-59 = 93 mL/min/1.73 sq.m. Ages 60-69 = 85 mL/min/1.73 sq.m. Ages 70+ = 75 mL/min/1.73 sq.m. Chronic Kidney Disease: Less than 60 mL/min/1.73 square meters End Stage Renal Disease: Less than 15 mL/min/1.73 square meters Globulin 3.0 G/dL Invalid Interpretation Code AO ADM SS Glucose [Mass/Vol] 112 mg/dL High 70 - 105 mg/dL AO ADM SS Hematocrit (Bld) [Volume fraction] 38.4 % Normal 37.0 - 47.0 % AO Workflow SS Hemoglobin (Bld) [Mass/Vol] 12.8 G/dL Normal 12.0 - 16.0 G/dL AO Workflow SS Lymphocyte, Absolute 2.6 103/mcL Normal 0.8 - 3 .9 10^3/mcL AO Workflow SS Lymphocytes/100 WBC (Bld) 30.9 % Normal 10.0 - 50.0 % AO Workflow SS MCH (RBC) [Entitic mass] 28.8 pg Normal 27.0 - 31.2 pg AO Workflow SS MCHC 33.2 G/dL Normal 33.0 - 37.0 G/dL AO Workflow SS MCV (RBC) [Entitic vol] 86.5 fL Normal 80.0 - 94.0 fL AO Workflow SS Monocyte, Absolute 0.6 103/mcL Normal 0.2 - 1.0 10^3/mcL AO Workflow SS Monocytes/100 WBC (Bld) 7.1 % Normal 1.7 - 13.0 % AO Workflow SS Neutrophil, Absolute 4.8 103/mcL Normal 2.9 - 6 .2 10^3/mcL AO Workflow SS Neutrophils/100 WBC (Bld) 57.5 % Normal 37.0 - 80.0 % AO Workflow SS Platelet mean volume (Bld) [Entitic vol] 9.3 fL Normal 7.4 - 10.4 fL AO Workflow SS Platelets (Bld) [#/Vol] 268 103/mcL Normal 130 - 400 10^3/mcL AO Workflow SS Potassium [Moles/Vol] 3.8 mmol/L Normal 3.5 - 5.1 mmol/L AO ADM SS Protein [Mass/Vol] 7.2 G/dL Normal 6.4 - 8.2 G/dL AO ADM SS RBC (Bld) [#/Vol] 4.44 106/mcL Normal 4.20 - 5.4 0 10^6/mcL AO Workflow SS Sodium [Moles/Vol] 140 mmol/L Normal 136 - 145 mmol/L AO ADM SS Urea nitrogen [Mass/Vol] 22 mg/dL High 7 - 18 mg/dL AO ADM SS Urea nitrogen/Creatinine [Mass ratio] 28 ratio High 7 - 27 ratio AO ADM SS WBC (Bld) [#/Vol] 8.3 103/mcL Normal 4.6 - 10.8 10^3/mcL AO Workflow SS .Auto Diffon 07-15-2023 Basophil, Absolute 0.1 10 3/mcL Normal 0.0-0.2 [facility] ([place]) Comment on above: Performed By: #### A RENITA, ADIFF, CBC, CMP, GFR #### [address] [address] Basophils/100 WBC (Bld) 1.7 % Normal 0.0-2.5 [facility] ([place]) Comment on above: Performed By: #### A RENITA, ADIFF, CBC, CMP, GFR #### [address] [address] Eosinophil, Absolute 0.5 10 3/mcL High 0.0-0.4 [facility] ([place]) Comment on above: Performed By: #### A RENITA, ADIFF, CBC, CMP, GFR #### [address] [address] Eosinophils/100 WBC (Bld) 5.7 % Normal 0.0-7.0 [facility] ([place]) Comment on above: Performed By: #### A RENITA, ADIFF, CBC, CMP, GFR #### [address] [address] Lymphocyte, Absolute 2.6 10 3/mcL Normal 0.8-3.9 [facility] ([place]) Comment on above: Performed By: #### A RENITA, ADIFF, CBC, CMP, GFR #### [address] [address] Lymphocytes/100 WBC (Bld) 31.2 % Normal 10.0-50.0 [facility] ([place]) Comment on above: Performed By: #### A RENITA, ADIFF, CBC, CMP, GFR #### [address] [address] Monocyte, Absolute 0.6 10 3/mcL Normal 0.2-1.0 [facility] ([place]) Comment on above: Performed By: #### A RENITA, ADIFF, CBC, CMP, GFR #### [address] [address] Monocytes/100 WBC (Bld) 7.0 % Normal 1.7-13.0 [facility] ([place]) Comment on above: Performed By: #### A RENITA, ADIFF, CBC, CMP, GFR #### [address] [address] Neutrophils/100 WBC (Bld) 54.4 % Normal 37.0-80.0 [facility] ([place]) Comment on above: Performed By: #### A RENITA, ADIFF, CBC, CMP, GFR #### [address] [address] .GFRon 07-15-2023 GFR 99 ml/min/1.73sqm Normal [facility] ([place]) Comment on above: Result Comment: GFR Population mean for , Non- Americans Ages 20-29 = 116 mL/min/1.73 sq.m. Ages 30-39 = 107 mL/min/1.73 sq.m. Ages 40-49 = 99 mL/min/1.73 sq.m. Ages 50-59 = 93 mL/min/1.73 sq.m. Ages 60-69 = 85 mL/min/1.73 sq.m. Ages 70+ = 75 mL/min/1.73 sq.m. Chronic Kidney Disease: Less than 60 mL/min/1.73 square meters End Stage Renal Disease: Less than 15 mL/min/1.73 square meters Performed By: #### A RENITA, ADIFF, CBC, CMP, GFR #### [address] [address] GFR Non- 82 ml/min/1.73sqm Normal [facility] ([place]) Comment on above: Result Comment: GFR Population mean for , Non- Americans Ages 20-29 = 116 mL/min/1.73 sq.m. Ages 30-39 = 107 mL/min/1.73 sq.m. Ages 40-49 = 99 mL/min/1.73 sq.m. Ages 50-59 = 93 mL/min/1.73 sq.m. Ages 60-69 = 85 mL/min/1.73 sq.m. Ages 70+ = 75 mL/min/1.73 sq.m. Chronic Kidney Disease: Less than 60 mL/min/1.73 square meters End Stage Renal Disease: Less than 15 mL/min/1.73 square meters Performed By: #### A RENITA, ADIFF, CBC, CMP, GFR #### [address] [address] .NEUABSon 07-15-2023 Neutrophil, Absolute 4.4 10 3/mcL Normal 2.9-6.2 [facility] ([place]) Comment on above: Performed By: #### A RENITA, ADIFF, CBC, CMP, GFR #### [address] [address] CBCon 07-15-2023 Erythrocyte distribution width (RBC) [Ratio] 13.2 % Normal 11.5-14.5 [facility] ([place]) Comment on above: Performed By: #### A RENITA, ADIFF, CBC, CMP, GFR #### [address] [address] Hematocrit (Bld) [Volume fraction] 37.3 % Normal 37.0-47.0 [facility] ([place]) Comment on above: Performed By: #### A RENITA, ADIFF, CBC, CMP, GFR #### [address] [address] Hgb 12.4 G/dL Normal 12.0-16.0 [facility] ([place]) Comment on above: Performed By: #### A RENITA, ADIFF, CBC, CMP, GFR #### [address] [address] MCH (RBC) [Entitic mass] 28.8 pg Normal 27.0-31.2 [facility] ([place]) Comment on above: Performed By: #### A RENITA, ADIFF, CBC, CMP, GFR #### [address] [address] MCHC 33.2 G/dL Normal 33.0-37.0 [facility] ([place]) Comment on above: Performed By: #### A RENITA, ADIFF, CBC, CMP, GFR #### [address] [address] MCV (RBC) [Entitic vol] 86.8 fL Normal 80.0-94.0 [facility] ([place]) Comment on above: Performed By: #### A RENITA, ADIFF, CBC, CMP, GFR #### [address] [address] Platelet 297 10 3/mcL Normal 130-400 [facility] ([place]) Comment on above: Performed By: #### A RENITA, ADIFF, CBC, CMP, GFR #### [address] [address] Platelet mean volume (Bld) [Entitic vol] 9.2 fL Normal 7.4-10.4 [facility] ([place]) Comment on above: Performed By: #### A RENITA, ADIFF, CBC, CMP, GFR #### [address] [address] RBC 4.30 10 6/mcL Normal 4.20-5.40 [facility] ([place]) Comment on above: Performed By: #### A RENITA, ADIFF, CBC, CMP, GFR #### [address] [address] WBC 8.2 10 3/mcL Normal 4.6-10.8 [facility] ([place]) Comment on above: Performed By: #### A RENITA, ADIFF, CBC, CMP, GFR #### [address] [address] CMPon 07-15-2023 Albumin Level 4.1 G/dL Normal 3.5-5.0 [facility] ([place]) Comment on above: Performed By: #### A RENITA, ADIFF, CBC, CMP, GFR #### [address] [address] Albumin/Globulin [Mass ratio] 1.3 {ratio} Normal 1.1-2.5 [facility] ([place]) Comment on above: Performed By: #### A RENITA, ADIFF, CBC, CMP, GFR #### [address] [address] ALP [Catalytic activity/Vol] 57 U/L Normal 40-135 [facility] ([place]) Comment on above: Performed By: #### A RENITA, ADIFF, CBC, CMP, GFR #### [address] [address] ALT [Catalytic activity/Vol] 26 U/L Normal 14-59 [facility] ([place]) Comment on above: Performed By: #### A RENITA, ADIFF, CBC, CMP, GFR #### [address] [address] AST [Catalytic activity/Vol] 23 U/L Normal 10-40 [facility] ([place]) Comment on above: Performed By: #### A RENITA, ADIFF, CBC, CMP, GFR #### [address] [address] Bili Total 0.5 mg/dL Normal 0.2-1.0 [facility] ([place]) Comment on above: Result Comment: Use of this assay is not recommended for patients undergoing treatment with eltrombopag due to the potential for falsely elevated results. Performed By: #### A RENITA, ADIFF, CBC, CMP, GFR #### [address] [address] BUN/Creatinine Ratio 26 ratio Normal 7-27 [facility] ([place]) Comment on above: Performed By: #### A RENITA, ADIFF, CBC, CMP, GFR #### [address] [address] Calcium [Mass/Vol] 9.0 mg/dL Normal 8.4-10.2 [facility] ([place]) Comment on above: Performed By: #### A RENITA, ADIFF, CBC, CMP, GFR #### [address] [address] Chloride [Moles/Vol] 104 mmol/L Normal 98-107 [facility] ([place]) Comment on above: Performed By: #### A RENITA, ADIFF, CBC, CMP, GFR #### [place] [address] CO2 [Moles/Vol] 25 mmol/L Normal 22-29 [facility] ([place]) Comment on above: Performed By: #### A RENITA, ADIFF, CBC, CMP, GFR #### [place] [address] Creatinine [Mass/Vol] 0.76 mg/dL Normal 0.55-1.02 [facility] [place] Comment on above: Performed By: #### A RENITA, ADIFF, CBC, CMP, GFR #### [place] [id number] Electrolyte Balance 10.0 mEq/L Normal 4.0-15.0 [facility] ([place]) Comment on above: Performed By: #### A RENITA, ADIFF, CBC, CMP, GFR #### [place] [address] Globulin 3.1 G/dL Normal [facility] ([place] Comment on above: Performed By: #### A RENITA, ADIFF, CBC, CMP, GFR #### [place] [id number] Glucose [Mass/Vol] 85 mg/dL Normal 70-105 [facility] ([place]) Comment on above: Performed By: #### A RENITA, ADIFF, CBC, CMP, GFR #### [place] [address] Potassium [Moles/Vol] 3.3 mmol/L Low 3.5-5.1 [facility] [place] Comment on above: Performed By: #### A RENITA, ADIFF, CBC, CMP, GFR #### [place] [address] [place], [place] [address] Sodium [Moles/Vol] 139 mmol/L Normal 136-145 [facility] ([place]) Comment on above: Performed By: #### A RENITA, ADIFF, CBC, CMP, GFR #### [place] [address] [place], [place] [address] Total Protein 7.2 G/dL Normal 6.4-8.2 [facility] ([place]) Comment on above: Performed By: #### A RENITA, ADIFF, CBC, CMP, GFR #### [address] [address] Urea nitrogen [Mass/Vol] 20 mg/dL High 7-18 [facility] ([place]) Comment on above: Performed By: #### A RENITA, ADIFF, CBC, CMP, GFR #### [address] [address] LABORATORYOrdered By: SYSTEM SYSTEM on 07-15-2023 Albumin BCP dye [Mass/Vol] 4.1 G/dL Normal 3.5 - 5.0 G/dL AO ADM SS Albumin/Globulin [Mass ratio] 1.3 {ratio} Normal 1.1 - 2.5 ratio AO ADM SS ALP [Catalytic activity/Vol] 57 U/L Normal 40 - 135 U/L AO ADM SS ALT With P-5'-P [Catalytic activity/Vol] 26 U/L Normal 14 - 59 U/L AO ADM SS AST With P-5'-P [Catalytic activity/Vol] 23 U/L Normal 10 - 40 U/L AO ADM SS Basophil, Absolute 0.1 103/mcL Normal 0.0 - 0.2 10^3/mcL AO Workflow SS Basophils/100 WBC (Bld) 1.7 % Normal 0.0 - 2.5 % AO Workflow SS Bilirubin [Mass/Vol] 0.5 mg/dL Normal 0.2 - 1 .0 mg/dL AO ADM SS Comment on above: Interpretive Data: U se of this assay is not recommended for patients undergoing treatment with eltrombopag due to the potential for falsely elevated results. Calcium [Mass/Vol] 9.0 mg/dL Normal 8.4 - 10. 2 mg/dL AO ADM SS Chloride [Moles/Vol] 104 mmol/L Normal 98 - 10 7 mmol/L AO ADM SS CO2 [Moles/Vol] 25 mmol/L Normal 22 - 29 mmol/L AO ADM SS Creatinine [Mass/Vol] 0.76 mg/dL Normal 0.55 - 1.02 mg/dL AO ADM SS Electrolyte Balance 10.0 mEq/L Normal 4.0 - 15 .0 mEq/L AO ADM SS Eosinophil, Absolute 0.5 103/mcL High 0.0 - 0 .4 10^3/mcL AO Workflow SS Eosinophils/100 WBC (Bld) 5.7 % Normal 0.0 - 7.0 % AO Workflow SS Erythrocyte distribution width (RBC) [Ratio] 13.2 % Normal 11.5 - 14.5 % AO Workflow SS GFR/1.73 sq M.predicted among blacks MDRD (S/P/Bld) [Vol rate/Area] 99 ml/min/1.73sqm Invalid Interpretation Code AO Chemistry S Comment on above: Interpretive Data: GFR Population mean for , Non- Americans Ages 20-29 = 116 mL/min/1.73 sq.m. Ages 30-39 = 107 mL/min/1.73 sq.m. Ages 40-49 = 99 mL/min/1.73 sq.m. Ages 50-59 = 93 mL/min/1.73 sq.m. Ages 60-69 = 85 mL/min/1.73 sq.m. Ages 70+ = 75 mL/min/1.73 sq.m. Chronic Kidney Disease: Less than 60 mL/min/1.73 square meters End Stage Renal Disease: Less than 15 mL/min/1.73 square meters GFR/1.73 sq M.predicted among non-blacks MDRD (S/P/Bld) [Vol rate/Area] 82 ml/min/1.73sqm Invalid Interpretation Code AO Chemistry S Comment on above: Interpretive Data: GFR Population mean for , Non- Americans Ages 20-29 = 116 mL/min/1.73 sq.m. Ages 30-39 = 107 mL/min/1.73 sq.m. Ages 40-49 = 99 mL/min/1.73 sq.m. Ages 50-59 = 93 mL/min/1.73 sq.m. Ages 60-69 = 85 mL/min/1.73 sq.m. Ages 70+ = 75 mL/min/1.73 sq.m. Chronic Kidney Disease: Less than 60 mL/min/1.73 square meters End Stage Renal Disease: Less than 15 mL/min/1.73 square meters Globulin 3.1 G/dL Invalid Interpretation Code AO ADM SS Glucose [Mass/Vol] 85 mg/dL Normal 70 - 105 mg/dL AO ADM SS Hematocrit (Bld) [Volume fraction] 37.3 % Normal 37.0 - 47.0 % AO Workflow SS Hemoglobin (Bld) [Mass/Vol] 12.4 G/dL Normal 12.0 - 16.0 G/dL AO Workflow SS Lymphocyte, Absolute 2.6 103/mcL Normal 0.8 - 3 .9 10^3/mcL AO Workflow SS Lymphocytes/100 WBC (Bld) 31.2 % Normal 10.0 - 50.0 % AO Workflow SS MCH (RBC) [Entitic mass] 28.8 pg Normal 27.0 - 31.2 pg AO Workflow SS MCHC 33.2 G/dL Normal 33.0 - 37.0 G/dL AO Workflow SS MCV (RBC) [Entitic vol] 86.8 fL Normal 80.0 - 94.0 fL AO Workflow SS Monocyte, Absolute 0.6 103/mcL Normal 0.2 - 1.0 10^3/mcL AO Workflow SS Monocytes/100 WBC (Bld) 7.0 % Normal 1.7 - 13.0 % AO Workflow SS Neutrophil, Absolute 4.4 103/mcL Normal 2.9 - 6 .2 10^3/mcL AO Workflow SS Neutrophils/100 WBC (Bld) 54.4 % Normal 37.0 - 80.0 % AO Workflow SS Platelet mean volume (Bld) [Entitic vol] 9.2 fL Normal 7.4 - 10.4 fL AO Workflow SS Platelets (Bld) [#/Vol] 297 103/mcL Normal 130 - 400 10^3/mcL AO Workflow SS Potassium [Moles/Vol] 3.3 mmol/L Low 3.5 - 5.1 mmol/L AO ADM SS Protein [Mass/Vol] 7.2 G/dL Normal 6.4 - 8.2 G/dL AO ADM SS RBC (Bld) [#/Vol] 4.30 106/mcL Normal 4.20 - 5.4 0 10^6/mcL AO Workflow SS Sodium [Moles/Vol] 139 mmol/L Normal 136 - 145 mmol/L AO ADM SS Urea nitrogen [Mass/Vol] 20 mg/dL High 7 - 18 mg/dL AO ADM SS Urea nitrogen/Creatinine [Mass ratio] 26 ratio Normal 7 - 27 ratio AO ADM SS WBC (Bld) [#/Vol] 8.2 103/mcL Normal 4.6 - 10.8 10^3/mcL AO Workflow SS .Auto Diffon 04-15-2023 Basophil, Absolute 0.1 10 3/mcL Normal 0.0-0.2 [facility] ([place]) Comment on above: Performed By: #### A RENITA, CBC, GFR, CMP, ADIFF #### [address] [address] Basophils/100 WBC (Bld) 0.9 % Normal 0.0-2.5 [facility] ([place]) Comment on above: Performed By: #### A RENITA, CBC, GFR, CMP, ADIFF #### [address] [address] Eosinophil, Absolute 0.4 10 3/mcL Normal 0.0-0.4 [facility] ([place]) Comment on above: Performed By: #### A RENITA, CBC, GFR, CMP, ADIFF #### [address] [address] Eosinophils/100 WBC (Bld) 4.1 % Normal 0.0-7.0 [facility] ([place]) Comment on above: Performed By: #### A RENITA, CBC, GFR, CMP, ADIFF #### [address] [address] Lymphocyte, Absolute 2.9 10 3/mcL Normal 0.8-3.9 [facility] ([place]) Comment on above: Performed By: #### A RENITA, CBC, GFR, CMP, ADIFF #### [address] [address] Lymphocytes/100 WBC (Bld) 28.8 % Normal 10.0-50.0 [facility] ([place]) Comment on above: Performed By: #### A RENITA, CBC, GFR, CMP, ADIFF #### [address] [address] Monocyte, Absolute 0.7 10 3/mcL Normal 0.2-1.0 [facility] ([place]) Comment on above: Performed By: #### A RENITA, CBC, GFR, CMP, ADIFF #### [address] [address] Monocytes/100 WBC (Bld) 7.3 % Normal 1.7-13.0 [facility] ([place]) Comment on above: Performed By: #### A RENITA, CBC, GFR, CMP, ADIFF #### [address] [address] Neutrophils/100 WBC (Bld) 58.9 % Normal 37.0-80.0 [facility] ([place]) Comment on above: Performed By: #### A RENITA, CBC, GFR, CMP, ADIFF #### [address] [address] .GFRon 04-15-2023 GFR Non- 85 ml/min/1.73sqm Normal [facility] ([place]) Comment on above: Result Comment: GFR Population mean for , Non- Americans Ages 20-29 = 116 mL/min/1.73 sq.m. Ages 30-39 = 107 mL/min/1.73 sq.m. Ages 40-49 = 99 mL/min/1.73 sq.m. Ages 50-59 = 93 mL/min/1.73 sq.m. Ages 60-69 = 85 mL/min/1.73 sq.m. Ages 70+ = 75 mL/min/1.73 sq.m. Chronic Kidney Disease: Less than 60 mL/min/1.73 square meters End Stage Renal Disease: Less than 15 mL/min/1.73 square meters Performed By: #### A RENITA, CBC, GFR, CMP, ADIFF #### [address] [address] GFR 104 ml/min/1.73sqm Normal [facility] ([place]) Comment on above: Result Comment: GFR Population mean for , Non- Americans Ages 20-29 = 116 mL/min/1.73 sq.m. Ages 30-39 = 107 mL/min/1.73 sq.m. Ages 40-49 = 99 mL/min/1.73 sq.m. Ages 50-59 = 93 mL/min/1.73 sq.m. Ages 60-69 = 85 mL/min/1.73 sq.m. Ages 70+ = 75 mL/min/1.73 sq.m. Chronic Kidney Disease: Less than 60 mL/min/1.73 square meters End Stage Renal Disease: Less than 15 mL/min/1.73 square meters Performed By: #### A RENITA, CBC, GFR, CMP, ADIFF #### [address] [address] .NEUABSon 04-15-2023 Neutrophil, Absolute 5.8 10 3/mcL Normal 2.9-6.2 [facility] ([place]) Comment on above: Performed By: #### A RENITA, CBC, GFR, CMP, ADIFF #### [address] [address] CBCon 04-15-2023 Erythrocyte distribution width (RBC) [Ratio] 13.7 % Normal 11.5-14.5 [facility] ([place]) Comment on above: Performed By: #### A RENITA, CBC, GFR, CMP, ADIFF #### [address] [address] Hematocrit (Bld) [Volume fraction] 34.9 % Low 37.0-47.0 [facility] ([place]) Comment on above: Performed By: #### A RENITA, CBC, GFR, CMP, ADIFF #### [address] [address] Hgb 11.8 G/dL Low 12.0-16.0 [facility] ([place]) Comment on above: Performed By: #### A RENITA, CBC, GFR, CMP, ADIFF #### [address] [address] MCH (RBC) [Entitic mass] 29.4 pg Normal 27.0-31.2 [facility] ([place]) Comment on above: Performed By: #### A RENITA, CBC, GFR, CMP, ADIFF #### [address] [address] MCHC 33.8 G/dL Normal 33.0-37.0 [facility] ([place]) Comment on above: Performed By: #### A RENITA, CBC, GFR, CMP, ADIFF #### [address] [address] MCV (RBC) [Entitic vol] 87.1 fL Normal 80.0-94.0 [facility] ([place]) Comment on above: Performed By: #### A RENITA, CBC, GFR, CMP, ADIFF #### [address] [address] Platelet 248 10 3/mcL Normal 130-400 [facility] ([place]) Comment on above: Performed By: #### A RENITA, CBC, GFR, CMP, ADIFF #### [address] [address] Platelet mean volume (Bld) [Entitic vol] 9.1 fL Normal 7.4-10.4 [facility] ([place]) Comment on above: Performed By: #### A RENITA, CBC, GFR, CMP, ADIFF #### [address] [address] RBC 4.01 10 6/mcL Low 4.20-5.40 [facility] ([place]) Comment on above: Performed By: #### A RENITA, CBC, GFR, CMP, ADIFF #### [address] [address] WBC 9.9 10 3/mcL Normal 4.6-10.8 [facility] ([place]) Comment on above: Performed By: #### A RENITA, CBC, GFR, CMP, ADIFF #### [address] [address] CMPon 04-15-2023 CO2 [Moles/Vol] 25 mmol/L Normal 22-29 [facility] ([place]) Comment on above: Performed By: #### A RENITA, CBC, GFR, CMP, ADIFF #### [address] [address] Electrolyte Balance 12.0 mEq/L Normal 4.0-15.0 [facility] ([place]) Comment on above: Performed By: #### A RENITA, CBC, GFR, CMP, ADIFF #### [address] [address] Albumin Level 3.9 G/dL Normal 3.5-5.0 [facility] ([place]) Comment on above: Performed By: #### A RENITA, CBC, GFR, CMP, ADIFF #### [address] [address] Albumin/Globulin [Mass ratio] 1.4 {ratio} Normal 1.1-2.5 [facility] ([place]) Comment on above: Performed By: #### A RENITA, CBC, GFR, CMP, ADIFF #### [address] [address] ALP [Catalytic activity/Vol] 55 U/L Normal 40-135 [facility] ([place]) Comment on above: Performed By: #### A RENITA, CBC, GFR, CMP, ADIFF #### [address] [address] ALT [Catalytic activity/Vol] 25 U/L Normal 14-59 [facility] ([place]) Comment on above: Performed By: #### A RENITA, CBC, GFR, CMP, ADIFF #### [address] [address] AST [Catalytic activity/Vol] 16 U/L Normal 10-40 [facility] ([place]) Comment on above: Performed By: #### A RENITA, CBC, GFR, CMP, ADIFF #### [address] [address] Bili Total 0.4 mg/dL Normal 0.2-1.0 [facility] ([place]) Comment on above: Result Comment: Use of this assay is not recommended for patients undergoing treatment with eltrombopag due to the potential for falsely elevated results. Performed By: #### A RENITA, CBC, GFR, CMP, ADIFF #### [address] [address] BUN/Creatinine Ratio 25 ratio Normal 7-27 [facility] ([place]) Comment on above: Performed By: #### A RENITA, CBC, GFR, CMP, ADIFF #### [address] [address] Calcium [Mass/Vol] 8.8 mg/dL Normal 8.4-10.2 [facility] ([place]) Comment on above: Performed By: #### A RENITA, CBC, GFR, CMP, ADIFF #### [address] [address] Chloride [Moles/Vol] 104 mmol/L Normal 98-107 [facility] ([place]) Comment on above: Performed By: #### A RENITA, CBC, GFR, CMP, ADIFF #### [address] [address] Creatinine [Mass/Vol] 0.73 mg/dL Normal 0.55-1.02 [facility] [place] Comment on above: Performed By: #### A RENITA, CBC, GFR, CMP, ADIFF #### [address] [address] Globulin 2.7 G/dL Normal [facility] ([place]) Comment on above: Performed By: #### A RENITA, CBC, GFR, CMP, ADIFF #### [address] [address] Glucose [Mass/Vol] 84 mg/dL Normal 70-105 [facility] ([place]) Comment on above: Performed By: #### A RENITA, CBC, GFR, CMP, ADIFF #### [address] [address] Potassium [Moles/Vol] 3.3 mmol/L Low 3.5-5.1 [facility] [place] Comment on above: Performed By: #### A RENITA, CBC, GFR, CMP, ADIFF #### [address] [address] Sodium [Moles/Vol] 141 mmol/L Normal 136-145 [facility] ([place]) Comment on above: Performed By: #### A RENITA, CBC, GFR, CMP, ADIFF #### [place] [address] [place], [place] [address] Total Protein 6.6 G/dL Normal 6.4-8.2 [facility] ([place]) Comment on above: Performed By: #### A RENITA, CBC, GFR, CMP, ADIFF #### [place] [address] [place], [place] [address] Urea nitrogen [Mass/Vol] 18 mg/dL Normal 7-18 [facility] ([place]) Comment on above: Performed By: #### A RENITA, CBC, GFR, CMP, ADIFF #### [place] [address] [place], [place] [address] LABORATORYOrdered By: Fiona Hernandez on 08-28-2021 Albumin BCP dye [Mass/Vol] 4.0 G/dL Invalid Interpretation Code 3.5 - 5.0 G/dL AO ADM SS Albumin/Globulin [Mass ratio] 1.1 {ratio} Invalid Interpretation Code 1.1 - 2.5 ratio AO ADM SS ALP [Catalytic activity/Vol] 81 U/L Invalid Interpretation Code 40 - 135 U/L AO ADM SS ALT With P-5'-P [Catalytic activity/Vol] 16 U/L Invalid Interpretation Code 14 - 59 U/L AO ADM SS AST With P-5'-P [Catalytic activity/Vol] 14 U/L Invalid Interpretation Code 10 - 40 U/L AO ADM SS Bilirubin [Mass/Vol] 0.2 mg/dL Invalid Interpretation Code 0.2 - 1.0 mg/dL AO ADM SS Calcium [Mass/Vol] 9.3 mg/dL Invalid Interpretation Code 8.4 - 10.2 mg/dL AO ADM SS Chloride [Moles/Vol] 104 mmol/L Invalid Interpretation Code 98 - 107 mmol/L AO ADM SS CO2 [Moles/Vol] 29 mmol/L Invalid Interpretation Code 22 - 29 mmol/L AO ADM SS Creatinine [Mass/Vol] 0.83 mg/dL Invalid Interpretation Code 0.55 - 1.02 mg/dL AO ADM SS Electrolyte Balance 8.0 mEq/L Invalid Interpretation Code AO ADM SS Globulin 3.5 G/dL Invalid Interpretation Code AO ADM SS Glucose [Mass/Vol] 90 mg/dL Invalid Interpretation Code 70 - 105 mg/dL AO ADM SS Potassium [Moles/Vol] 5.1 mmol/L Invalid Interpretation Code 3.5 - 5.1 mmol/L AO ADM SS Protein [Mass/Vol] 7.5 G/dL Invalid Interpretation Code 6.4 - 8.2 G/dL AO ADM SS Sodium [Moles/Vol] 141 mmol/L Invalid Interpretation Code 136 - 145 mmol/L AO ADM SS Urea nitrogen [Mass/Vol] 13 mg/dL Invalid Interpretation Code 7 - 18 mg/dL AO ADM SS Urea nitrogen/Creatinine [Mass ratio] 16 ratio Invalid Interpretation Code 7 - 27 ratio AO ADM SS LABORATORYOrdered By: Kristy Mac on 08-28-2021 Basophil, Absolute 0.10 103/mcL Invalid Interpretation Code 0.00 - 0.19 10^3/mcL AO Auto Heme SS Basophils/100 WBC (Bld) 1.0 % Invalid Interpretation Code 0.0 - 2.5 % AO Auto Heme SS Eosinophil, Absolute 0.40 103/mcL Invalid Interpretation Code 0.00 - 0.40 10^3/mcL AO Auto Heme SS Eosinophils/100 WBC (Bld) 4.0 % Invalid Interpretation Code 0.0 - 7.0 % AO Auto Heme SS Erythrocyte distribution width (RBC) [Ratio] 13.3 % Invalid Interpretation Code 11.5 - 14.5 % AO Auto Heme SS Hematocrit (Bld) [Volume fraction] 43.2 % Invalid Interpretation Code 37.0 - 47.0 % AO Auto Heme SS Hemoglobin (Bld) [Mass/Vol] 14.6 G/dL Invalid Interpretation Code 12.0 - 16.0 G/dL AO Auto Heme SS Lymphocyte, Absolute 1.90 103/mcL Invalid Interpretation Code 0.77 - 3.85 10^3/mcL AO Auto Heme SS Lymphocytes/100 WBC (Bld) 19.3 % Invalid Interpretation Code 10.0 - 50.0 % AO Auto Heme SS MCH (RBC) [Entitic mass] 29.6 pg Invalid Interpretation Code 27.0 - 31.2 pg AO Auto Heme SS MCHC (RBC) [Mass/Vol] 33.9 G/dL Invalid Interpretation Code 33.0 - 37.0 G/dL AO Auto Heme SS MCV (RBC) [Entitic vol] 87.3 fL Invalid Interpretation Code 80.0 - 94.0 fL AO Auto Heme SS Monocyte, Absolute 0.70 103/mcL Invalid Interpretation Code 0.15 - 1.00 10^3/mcL AO Auto Heme SS Monocytes/100 WBC (Bld) 6.5 % Invalid Interpretation Code 1.7 - 13.0 % AO Auto Heme SS Neutrophil, Absolute 7.00 103/mcL Invalid Interpretation Code 2.85 - 6.16 10^3/mcL AO Auto Heme SS Neutrophils/100 WBC (Bld) 69.2 % Invalid Interpretation Code 37.0 - 80.0 % AO Auto Heme SS Platelet mean volume (Bld) [Entitic vol] 9.0 fL Invalid Interpretation Code 7.4 - 10.4 fL AO Auto Heme SS Platelets (Bld) [#/Vol] 327 103/mcL Invalid Interpretation Code 130 - 400 10^3/mcL AO Auto Heme SS RBC (Bld) [#/Vol] 4.95 106/mcL Invalid Interpretation Code 4.20 - 5.40 10^6/mcL AO Auto Heme SS WBC (Bld) [#/Vol] 10.10 103/mcL Invalid Interpretation Code 4.60 - 10.80 10^3/mcL AO Auto Heme SS LABORATORYOrdered By: SYSTEM SYSTEM on 08-28-2021 GFR 90 ml/min/1.73sqm Invalid Interpretation Code AO Chemistry S GFR Non- 74 ml/min/1.73sqm Invalid Interpretation Code AO Chemistry S LABORATORYOrdered By: CLEV_C AR CONTRIBUTOR_SYSTEM on 06-06-2021 Mitogen minus NIL 1 Invalid Interpretation Code AO Sendouts SS Comment on above: Result Comment: Perf ormed By: [place] [address] Clothes Separator: Antwon Parham III, M.D. CLIA#: [id number] Phone#: TB NIL 0.03 Int unit/mL Invalid Interpretation Code AO Sendouts SS Comment on above: Result Comment: Perf ormed By: [place] [address] Clothes Separator: Antwon Parham III, M.D. CLIA#: [id number] Phone#: TB Quaint Interpretation No evidence of current or previous infection with Mycobacterium tuberculosis. Invalid Interpretation Code AO Sendouts SS Comment on above: Result Comment: Perf ormed By: [place] [address] Clothes Separator: Antwon Parham III, M.D. CLIA#: [id number] Phone#: TB Result Negative Invalid Interpretation Code NEGAT AO Sendouts SS Comment on above: Result Comment: Perf ormed By: [place] [address] Clothes Separator: Antwon Parham III, M.D. CLIA#: [id number] Phone#: TB1 Ag minus NIL 0.00 Int unit/mL Invalid Interpretation Code <0.35Int unit/mL AO Sendouts SS Comment on above: Result Comment: Perf ormed By: [place] [address] Clothes Separator: Antwon Parham III, M.D. CLIA#: [id number] Phone#: TB2 Ag minus NIL 0.00 Int unit/mL Invalid Interpretation Code <0.35Int unit/mL AO Sendouts SS Comment on above: Result Comment: Perf ormed By: [place] [address] Clothes Separator: Antwon Parham III, M.D. CLIA#: [id number] Phone#: LABORATORYOrdered By: Yossi Arrington on 06-01-2021 Albumin BCP dye [Mass/Vol] 3.9 G/dL Invalid Interpretation Code 3.5 - 5.0 G/dL AO ADM SS Albumin/Globulin [Mass ratio] 1.3 {ratio} Invalid Interpretation Code 1.1 - 2.5 ratio AO ADM SS ALP [Catalytic activity/Vol] 64 U/L Invalid Interpretation Code 40 - 135 U/L AO ADM SS ALT With P-5'-P [Catalytic activity/Vol] 25 U/L Invalid Interpretation Code 14 - 59 U/L AO ADM SS AST With P-5'-P [Catalytic activity/Vol] 16 U/L Invalid Interpretation Code 10 - 40 U/L AO ADM SS Bilirubin [Mass/Vol] 0.4 mg/dL Invalid Interpretation Code 0.2 - 1.0 mg/dL AO ADM SS Calcium [Mass/Vol] 8.6 mg/dL Invalid Interpretation Code 8.4 - 10.2 mg/dL AO ADM SS Chloride [Moles/Vol] 105 mmol/L Invalid Interpretation Code 98 - 107 mmol/L AO ADM SS CO2 [Moles/Vol] 26 mmol/L Invalid Interpretation Code 22 - 29 mmol/L AO ADM SS Creatinine [Mass/Vol] 0.77 mg/dL Invalid Interpretation Code 0.55 - 1.02 mg/dL AO ADM SS Electrolyte Balance 10.0 mEq/L Invalid Interpretation Code AO ADM SS Globulin 3.0 G/dL Invalid Interpretation Code AO ADM SS Glucose [Mass/Vol] 116 mg/dL Invalid Interpretation Code 70 - 105 mg/dL AO ADM SS Potassium [Moles/Vol] 3.6 mmol/L Invalid Interpretation Code 3.5 - 5.1 mmol/L AO ADM SS Protein [Mass/Vol] 6.9 G/dL Invalid Interpretation Code 6.4 - 8.2 G/dL AO ADM SS Sodium [Moles/Vol] 141 mmol/L Invalid Interpretation Code 136 - 145 mmol/L AO ADM SS Urea nitrogen [Mass/Vol] 11 mg/dL Invalid Interpretation Code 7 - 18 mg/dL AO ADM SS Urea nitrogen/Creatinine [Mass ratio] 14 ratio Invalid Interpretation Code 7 - 27 ratio AO ADM SS LABORATORYOrdered By: Yasmine Philippe on 06-01-2021 Basophil, Absolute 0.10 103/mcL Invalid Interpretation Code 0.00 - 0.19 10^3/mcL AO Auto Heme SS Basophils/100 WBC (Bld) 1.0 % Invalid Interpretation Code 0.0 - 2.5 % AO Auto Heme SS Eosinophil, Absolute 0.30 103/mcL Invalid Interpretation Code 0.00 - 0.40 10^3/mcL AO Auto Heme SS Eosinophils/100 WBC (Bld) 2.7 % Invalid Interpretation Code 0.0 - 7.0 % AO Auto Heme SS Erythrocyte distribution width (RBC) [Ratio] 14.0 % Invalid Interpretation Code 11.5 - 14.5 % AO Auto Heme SS Hematocrit (Bld) [Volume fraction] 39.3 % Invalid Interpretation Code 37.0 - 47.0 % AO Auto Heme SS Hemoglobin (Bld) [Mass/Vol] 13.2 G/dL Invalid Interpretation Code 12.0 - 16.0 G/dL AO Auto Heme SS Lymphocyte, Absolute 2.80 103/mcL Invalid Interpretation Code 0.77 - 3.85 10^3/mcL AO Auto Heme SS Lymphocytes/100 WBC (Bld) 28.1 % Invalid Interpretation Code 10.0 - 50.0 % AO Auto Heme SS MCH (RBC) [Entitic mass] 30.6 pg Invalid Interpretation Code 27.0 - 31.2 pg AO Auto Heme SS MCHC (RBC) [Mass/Vol] 33.5 G/dL Invalid Interpretation Code 33.0 - 37.0 G/dL AO Auto Heme SS MCV (RBC) [Entitic vol] 91.4 fL Invalid Interpretation Code 80.0 - 94.0 fL AO Auto Heme SS Monocyte, Absolute 0.60 103/mcL Invalid Interpretation Code 0.15 - 1.00 10^3/mcL AO Auto Heme SS Monocytes/100 WBC (Bld) 5.9 % Invalid Interpretation Code 1.7 - 13.0 % AO Auto Heme SS Neutrophil, Absolute 6.20 103/mcL Invalid Interpretation Code 2.85 - 6.16 10^3/mcL AO Auto Heme SS Neutrophils/100 WBC (Bld) 62.3 % Invalid Interpretation Code 37.0 - 80.0 % AO Auto Heme SS Platelet mean volume (Bld) [Entitic vol] 9.1 fL Invalid Interpretation Code 7.4 - 10.4 fL AO Auto Heme SS Platelets (Bld) [#/Vol] 343 103/mcL Invalid Interpretation Code 130 - 400 10^3/mcL AO Auto Heme SS RBC (Bld) [#/Vol] 4.30 106/mcL Invalid Interpretation Code 4.20 - 5.40 10^6/mcL AO Auto Heme SS WBC (Bld) [#/Vol] 9.90 103/mcL Invalid Interpretation Code 4.60 - 10.80 10^3/mcL AO Auto Heme SS LABORATORYOrdered By: SYSTEM SYSTEM on 06-01-2021 GFR 98 ml/min/1.73sqm Invalid Interpretation Code AO Chemistry S GFR Non- 81 ml/min/1.73sqm Invalid Interpretation Code AO Chemistry S LABORATORYOrdered By: Yossi Arrington on 03-07-2021 Albumin BCP dye [Mass/Vol] 3.8 G/dL Invalid Interpretation Code 3.5 - 5.0 G/dL AO ADM SS Albumin/Globulin [Mass ratio] 1.4 {ratio} Invalid Interpretation Code 1.1 - 2.5 ratio AO ADM SS ALP [Catalytic activity/Vol] 61 U/L Invalid Interpretation Code 40 - 135 U/L AO ADM SS ALT With P-5'-P [Catalytic activity/Vol] 30 U/L Invalid Interpretation Code 14 - 59 U/L AO ADM SS AST With P-5'-P [Catalytic activity/Vol] 17 U/L Invalid Interpretation Code 10 - 40 U/L AO ADM SS Bilirubin [Mass/Vol] 0.2 mg/dL Invalid Interpretation Code 0.2 - 1.0 mg/dL AO ADM SS Calcium [Mass/Vol] 8.9 mg/dL Invalid Interpretation Code 8.4 - 10.2 mg/dL AO ADM SS Chloride [Moles/Vol] 106 mmol/L Invalid Interpretation Code 98 - 107 mmol/L AO ADM SS CO2 [Moles/Vol] 27 mmol/L Invalid Interpretation Code 22 - 29 mmol/L AO ADM SS Creatinine [Mass/Vol] 0.78 mg/dL Invalid Interpretation Code 0.55 - 1.02 mg/dL AO ADM SS Electrolyte Balance 9.0 mEq/L Invalid Interpretation Code AO ADM SS Globulin 2.8 G/dL Invalid Interpretation Code AO ADM SS Glucose [Mass/Vol] 87 mg/dL Invalid Interpretation Code 70 - 105 mg/dL AO ADM SS Potassium [Moles/Vol] 4.7 mmol/L Invalid Interpretation Code 3.5 - 5.1 mmol/L AO ADM SS Protein [Mass/Vol] 6.6 G/dL Invalid Interpretation Code 6.4 - 8.2 G/dL AO ADM SS Sodium [Moles/Vol] 142 mmol/L Invalid Interpretation Code 136 - 145 mmol/L AO ADM SS Urea nitrogen [Mass/Vol] 17 mg/dL Invalid Interpretation Code 7 - 18 mg/dL AO ADM SS Urea nitrogen/Creatinine [Mass ratio] 22 ratio Invalid Interpretation Code 7 - 27 ratio AO ADM SS LABORATORYOrdered By: Kristy Mac on 03-07-2021 Basophil, Absolute 0.10 103/mcL Invalid Interpretation Code 0.00 - 0.19 10^3/mcL AO Auto Heme SS Basophils/100 WBC (Bld) 0.8 % Invalid Interpretation Code 0.0 - 2.5 % AO Auto Heme SS Eosinophil, Absolute 0.10 103/mcL Invalid Interpretation Code 0.00 - 0.40 10^3/mcL AO Auto Heme SS Eosinophils/100 WBC (Bld) 1.4 % Invalid Interpretation Code 0.0 - 7.0 % AO Auto Heme SS Erythrocyte distribution width (RBC) [Ratio] 14.1 % Invalid Interpretation Code 11.5 - 14.5 % AO Auto Heme SS Hematocrit (Bld) [Volume fraction] 39.2 % Invalid Interpretation Code 37.0 - 47.0 % AO Auto Heme SS Hemoglobin (Bld) [Mass/Vol] 13.1 G/dL Invalid Interpretation Code 12.0 - 16.0 G/dL AO Auto Heme SS Lymphocyte, Absolute 2.50 103/mcL Invalid Interpretation Code 0.77 - 3.85 10^3/mcL AO Auto Heme SS Lymphocytes/100 WBC (Bld) 26.6 % Invalid Interpretation Code 10.0 - 50.0 % AO Auto Heme SS MCH (RBC) [Entitic mass] 31.2 pg Invalid Interpretation Code 27.0 - 31.2 pg AO Auto Heme SS MCHC (RBC) [Mass/Vol] 33.4 G/dL Invalid Interpretation Code 33.0 - 37.0 G/dL AO Auto Heme SS MCV (RBC) [Entitic vol] 93.4 fL Invalid Interpretation Code 80.0 - 94.0 fL AO Auto Heme SS Monocyte, Absolute 0.60 103/mcL Invalid Interpretation Code 0.15 - 1.00 10^3/mcL AO Auto Heme SS Monocytes/100 WBC (Bld) 6.7 % Invalid Interpretation Code 1.7 - 13.0 % AO Auto Heme SS Neutrophil, Absolute 6.00 103/mcL Invalid Interpretation Code 2.85 - 6.16 10^3/mcL AO Auto Heme SS Neutrophils/100 WBC (Bld) 64.5 % Invalid Interpretation Code 37.0 - 80.0 % AO Auto Heme SS Platelet mean volume (Bld) [Entitic vol] 9.0 fL Invalid Interpretation Code 7.4 - 10.4 fL AO Auto Heme SS Platelets (Bld) [#/Vol] 321 103/mcL Invalid Interpretation Code 130 - 400 10^3/mcL AO Auto Heme SS RBC (Bld) [#/Vol] 4.20 106/mcL Invalid Interpretation Code 4.20 - 5.40 10^6/mcL AO Auto Heme SS WBC (Bld) [#/Vol] 9.30 103/mcL Invalid Interpretation Code 4.60 - 10.80 10^3/mcL AO Auto Heme SS LABORATORYOrdered By: SYSTEM SYSTEM on 03-07-2021 GFR 97 ml/min/1.73sqm Invalid Interpretation Code AO Chemistry S GFR Non- 80 ml/min/1.73sqm Invalid Interpretation Code AO Chemistry S Vital Signs Date Time Vital Sign Value Performing Clinician Heri parker 03-15-2025 08:58-0400 Body height 162.[address] Kelli Lance DO Work Phone: [facility] 03-15-2025 08:58-0400 Body mass index (BMI) [Ratio] 30.9 kg/m2 Dr. Kelli Lance DO Work Phone: [facility] 03-15-2025 08:58-0400 Body weight 81.[address] Kelli Lance DO Work Phone: [facility] 01-04-2025 09:08-0400 Body height 162.[address] Kelli Lance DO Work Phone: [facility] 01-04-2025 09:08-0400 Body mass index (BMI) [Ratio] 31.4 kg/m2 Dr. Kelli Lance DO Work Phone: [facility] 01-04-2025 09:08-0400 Body weight 83.[address] Kelli Lance DO Work Phone: [facility] 02-04-2024 08:09-0400 Body temperature 97.3 [degF] Dr. Elia Fair Work Phone: [facility] 02-04-2024 08:09-0400 Diastolic blood pressure 61 mm[Hg] Dr. Elia Fair Work Phone: [facility] 02-04-2024 08:09-0400 Heart rate 63 /min Dr. Elia Fair Work Phone: [facility] 02-04-2024 08:09-0400 Respiratory rate 18 /min Dr. Elia Fair Work Phone: [facility] 02-04-2024 08:09-0400 SaO2% (BldA) [Mass fraction] 98 % Dr. Elia Fair Work Phone: [facility] 02-04-2024 08:09-0400 Systolic blood pressure 149 mm[Hg] Dr. Elia Fair Work Phone: [facility] 02-04-2024 06:30-0400 Body height 162.[address] Elia Fair Work Phone: [facility] 02-04-2024 06:30-0400 Body mass index (BMI) [Ratio] 27.5 kg/m2 Dr. Elia Fair Work Phone: [facility] 02-04-2024 06:30-0400 Body weight 72.[address] Elia Fair Work Phone: [facility] 12-18-2023 08:35-0400 Body mass index (BMI) [Ratio] 29.4 kg/m2 Dr. Elia Fair Work Phone: [facility] 12-18-2023 08:35-0400 Body weight 75.[address] Elia Fair Work Phone: [facility] Encounters Encounter Date Encounter Type Care Provider Facility Start: 04-21-2025 ambulatory Dilip Hope Facility :[facility] Start: 03-15-2025 End: 03-15-[address] Dilip Hope MD -[facility] Work Phone: Start: 03-15-2025 End: 03-15-[address] Kelli Lance DO Work Phone: [facility] Work Phone: Start: 03-08-2025 End: 03-08-[address] Elia Fair DO -[facility] Work Phone: Start: 03-08-2025 End: 03-08-[address] Kelli Lance DO Work Phone: [facility] Work Phone: Start: 02-27-2025 End: 02-27-[address] Kelli Lance DO Work Phone: [facility] Work Phone: Start: 02-27-2025 End: 02-27-[address] Elia Fair DO -[facility] Work Phone: Start: 02-27-2025 End: 02-27-2025 ambulatory [place] [facility] Facility:[facility] Start: 01-04-2025 End: 01-04-[address] Elia Fair DO [facility] Work Phone: Start: 01-04-2025 End: 01-04-2025 ambulatory Elia Fair Facility:[facility] Start: 12-28-2024 ambulatory Elia Fair Facility :[facility] Start: 06-22-[address] MANOJ CONLEY MD Fa cility:[facility] Start: 02-04-2024 Non-patient / Non-visit Dr. Shabana Fair Work Phone: [facility] Start: 02-04-2024 End: 02-04-2024 Admission to same day surgery center Dr. Elia Fair Work Phone: [facility] Start: 02-04-2024 End: 02-04-[address] Elia Fair Work Phone: [facility] Work Phone: Start: 12-30-2023 End: 02-08-[address] MANOJ CONLEY MD Facility:[facility] Start: 12-30-2023 End: 02-08-2024 Lab-Standing Order DR MANOJ CONLEY MD [facility] Start: 12-18-2023 End: 12-18-[address] Elia Fair Work Phone: [facility] Work Phone: Start: 12-06-2023 End: 12-06-2023 ambulatory KELLI LANCE DO Facility:[facility] Start: 12-06-2023 End: 12-06-[address] MANOJ CONLEY MD [facility] Start: 08-28-2021 End: 08-28-2021 Lab-Standing Order DR MANOJ CONLEY MD [facility] Procedures Date Procedure Procedure Detail Performing Clinician Start: 02-27-2025 MRI of joint of lowe r extremity Dr. Kelli Lance DO Work Phone: Start: 01-04-2025 Plain X-ray of shoulder Dr. Kelli Lance DO Work Phone: Start: 02-04-2024 Decompression of med cathryn nerve Dr. Elia Fair Work Phone: Plan of Treatment Date Care Activity Detail Author Start: 02-04-2024 Application of ice c ollar, cap or bag [facility] Start: 02-04-2024 Catheterization of vein [facility] Start: 02-04-2024 Elevation of affected extremity [facility] Start: 02-04-2024 Following clinical p athway protocol [facility] Start: 02-04-2024 Patient discharge [facility] Start: 02-04-2024 Procedure discontinued [facility] Start: 02-04-2024 Taking patient vital signs [facility] Start: 02-04-2024 Vital signs measurements [facility] Start: 02-04-2024 [facility] Start: 02-04-2024 Medication education [facility] Patient referral [facility] Work Phone: Immunizations Immunization Date Immunization Notes Care Provider Fa geovani 10-24-2021 SARS-CoV-2 (COVID-19 ) mRNA-1273 vaccine; Translations: [Moderna COVID-19 Vaccine] DR MANOJ CONLEY MD [facility] 10-24-2021 influenza, injectabl e, quadrivalent, contains preservative; Translations: [Fluarix PF Quadrivalent ] DR MANOJ CONLEY MD [facility] 02-15-2021 SARS-CoV-2 (COVID-19 ) mRNA-[address] MANOJ CONLEY MD [facility] 01-17-2021 SARS-CoV-2 (COVID-19 ) mRNA-[address] MANOJ CONLEY MD [facility] 10-25-2020 influenza, injectabl e, quadrivalent, contains preservative; Translations: [Fluarix PF Quadrivalent ] DR MANOJ CONLEY MD [facility] 10-27-2019 influenza, injectabl e, quadrivalent, preservative free; Translations: [Fluarix PF Quadrivalent ] DR MANOJ CONLEY MD [facility] Comment on above: Early/Late Reason: C harted at Incorrect Time 07-07-2018 influenza virus vaccine, unspecified formulation DR MANOJ CONLEY MD [facility] 07-07-2016 influenza virus vaccine, unspecified formulation DR MANOJ CONLEY MD [facility] Payers Date Payer Category Payer Self-pay 2023 Private Health Insurance [id number] 1975 Unknown [id number] 2.16.8 [id number] 1975 Unknown [id number] 2.16.8 [id number] 1975 Unknown 2031 2.16.8 [id number] Unknown KARON [id number] Unknown [id number] 2.16.8 [id number] Unknown [id number] 2.16.8 [id number] Unknown [id number] 2.16.8 [id number] Unknown [id number] 2.16.8 [id number] Unknown [id number] 2.16.8 [id number] Unknown [id number] 2.16.8 [id number] Unknown [id number] 2.16.8 [id number] Social History Date Type Detail Facility Start: 10-25-2020 Light tobacco smoker (finding) [facility] Start: 1975 Sex Assigned At Female [facility] Start: 01-28-2024 Tobacco smoking status NHIS Unknown if ever smoked [facility] Start: 02-27-2024 Tobacco smoking status NHIS Smokes tobacco daily (finding) [facility] NEGATED: Highlighted row [facility] Goals Date Patient Goal Desired Activity /State Mental Status Date Assessment Result Facility 02-04-2024 Cognitive function Level Of Cons ciousness Awake;Alert [facility] Work Phone: 02-04-2024 Cognitive function Touch/Shaking [facility] Work Phone: Clinical Notes 02-04-2024 to 01-04-2025 Note Date & Type Note Facility 01-04-2025 Evaluation note Diagnosis Onset Date Resolution Lupus acute January 04 9:02am Rheumatoid arthritis acute Nate h 2024 9:02am Shoulder pain, right acute Nate h 2024 9:02am [facility] Work Phone: 1(941) 162-914503-31-2025 Evaluation note* Diagnosis Onset Date Resolution Status Admit Date Lupus acute January 04 9:02am Rheumatoid arthritis acute Nate h 2024 9:02am Shoulder pain, right acute Naet h 2024 9:02am Nontraumatic rotator cuff tear acute March 08, 2025 11:03am Lupus acute March 15, 2025 8:55am Nontraumatic rotator cuff tear acute March 15, 2025 8:55am Rheumatoid arthritis acute March 15, 2025 8:55am Shoulder pain, right acute March 15, 2025 8:55am [facility] Work Phone: 1(165) 867-189504-30-2024 Procedure [facility] Discharge summary Author Elia Fair [facility] February 04, 2024 7:59am Note Date/Time February 04, 2024 7:5 5am [facility] Medical Records Department [address] [place] [address] Instructions for Home/Discharge Instructions 02/04/24 0754 MR#: [id number] Acct: [id number] Name: CARLEYELSIE PO Rep #:[id number] : 1975 48 From: Elia Fair DO PCP: Dr. Kelli Lance, DO Status:REG SDC Discharge Instructions Diet Discharge Diet: No restrictions Dressing / Incision Call your doctor if you observe: Shortness of breath and Chest pain Additional Dressing/Incision Instructions:: Ice and elevate operative extremity next 72 hours. Keep dressing on clean and dry for 48 hours then may remove and allow warm soapy water to rinse over incision but do not submerge until sutures are out. Then apply bandaid over incision and change daily. encourage finger range of motion. Not lift more than 1/2 pound. Minimize narcotic use only as needed and directed, may use OTC NSAID and Tylenol to supplement/substitute for pain control. Follow Up Care Please Follow Up With: Elia Fair DO When: 2 weeks Test Results: Test results from this visit will be discussed in further detail at your follow- up appointment, if applicable. Discharge Plan Admission Primary Reason for Your Visit: Right carpal tunnel release Attending Provider: Elia Fair Primary Care Provider: Kelli Lance Discharge Orders/Prescriptions Prescriptions: New oxycodone 5 mg tablet 5 - 10 mg PO Q4H PRN (Reason: pain) 3 Days Qty: 10 0RF cephalexin [cephalexin] 500 mg capsule 1,000 mg PO Q8 Qty: 4 0RF Rx Instructions: take 2 tabs at 8:00 pm and 2 tabs after 5 am when you wake up Continued folic acid 1 mg tablet 1 mg PO BID methotrexate sodium 2.5 mg tablet 12.5 mg PO BONILLA Held Cimzia 400 mg/2 mL (200 mg/mL x 2) syringe kit 200 mg subcut Q2W Hold Instructions: Resume on 02/18/24. Patient Comments: STOPPPED TEMPORARILY FOR SURGERY Referrals / Follow Up: Kelli Lance DO [Primary Care Provider] - Disposition Disposition (needs filled in before D/C Order can be placed): Home, Self Care 02/04/24 8525<Electronically signed by Elia Fair DO>Elia Fair DO CC: Dr. Kelli Lance DO ~ Signed [facility] Work Phone: Evaluation + Plan note Future Appointments Appointment Date:10/24/2021 08:00:00 AM Scheduled Provider:KELLI LANCE DO Location:[facility] Appointment Type:[facility] Evaluation note* Diagnosis Onset Date Resolution Status Carpal tunnel syndrome, bilateral acute [facility] Work Phone: History and physical note Author Elia Fair [facility] February 04, 2024 7:12am Note Date/Time February 04, 2024 7:1 2am [facility] Medical Records Department [address] [place] [address] [place] [address] History & Physical Exam 02/04/24 0711 MR#: [id number] Acct: [id number] Name: ELSIE HOWE Rep #:[id number] : 1975 48 From: Elia Fair DO PCP: Dr. Kelli Lance DO Status:REG [facility] Location: [place] [address] History and Physical Date of Admission: 02/04/24 [facility] [address] [place] [address] [address] [place] [address] OFFICE VISIT Date of Service: 12/18/23 MR#: [id number] Acct: [id number] Name: ELSIE HOWE Rep #: [id number] : 1975 Provider: Dr. Elia Fair DO Age/Sex: 48/F Location: [facility] Status: Signed Intake Vital Signs 12/18/2407:35 Height 5 ft 3 in Weight: 166 lb 2 oz BMI 29.4 Intake Visit Reasons: RIGHT WRIST Accompanied by: Self Is patient in pain?: Yes Pain scale (1-10): 4 Allergies No Known Allergies Allergy (Unverified 12/18/23 08:41) Medications certolizumab pegol 400 mg/2 mL (200 mg/mL x2) subcutaneous syringe kit (Cimzia) 200 mg subcut Q2W 12/18/23 [History Confirmed 12/18/23] folic acid 1 mg tablet 1 mg PO BID 12/18/23 [History Confirmed 12/18/23] methotrexate sodium 2.5 mg tablet mg PO 5XW 12/18/23 [History Confirmed 12/18/23] PFSH Family History (Updated 12/18/23 @ 08:43 by Shakira Jones) Grandmother Arthritis Social History household members: other details: Roommate Smoking Status: Current every day smoker Smokeless tobacco user: other alcohol intake: current alcohol intake frequency: a few times a week HPI RIGHT WRIST Details: This documentation accurately reflects the service provided and the decisions made by me, Dr. Elia Fair, 12/18/23 0758. Part of today?s visit was documented by Shakira Queen ATC, acting as scribe. ELSIE HOWE is a 48 year old F here today for right wrist pain. Patient states this has been bothering her for about over a year but is gradually getting worse. Patient does get numbness and tingling that is mainly in the thumb, index and middle finger. She denies any numbness/tingling into the forearm at all. She does have itchiness in the palm of the hand into the fingers. She states she wears wrist braces on both wrists when she is sleeping. She states the braces does give her some relief as it keeps it from falling asleep and going numb as bad. She was referred by Dr. Lundy. She did have an EMG done at [place]. The right wrist is much worse. she is RHD.She denies any physical therapy for the wrists. She has had previous injections in the right wrist but none recently. She states she does have some shoulder issues as well. She denies any previous injury or surgery to the wrist at all. Patient is right hand dominant. She did have a prescription for medical marijuana but it and then she takes Aleve when needed for pain. She did recently get an injection in the left carpal tunnel by Dr. Conley Patient has been bracing at night for over a year now, it does provide some relief. Ortho Exam General General: Yes no acute distress Neurologic: Yes alert and Yes oriented x3 Psychologic: Yes reasonable and appropriate Right Wrist/Hand Skin/Wound: Yes CDI, No Swelling, No Ecchymosis and Yes capillary refill normal Right Wrist: Yes ROM-Extension 0-60 (85), ROM-Flexion 0-80 (80), ROM-Pronation 0-80, ROM-Supination 0-90, Durken's Test and Phalen's; No Tinel's WRIST: no atrophy noted wrist ext 85 wrist flex 80 Left Wrist/Hand Skin/Wound: No Swelling, No Ecchymosis and Yes capillary refill normal Left Wrist: Yes ROM-Extension 0-60, Yes ROM-Flexion 0-80, Yes ROM-Pronation 0- 80, Yes ROM-Supination 0-90, Yes Durken's Test and Yes Phalen's; No Tinel's, No Thenar Atrophy and No Hypothenar Atrophy Head: Normocephalic Atraumatic Chest: symmetrical rise, non-labored breathing, no audible wheeze Abdomen: no guarding, non-rigid Supplemental Info 12/06/2023 EMG bilateral upper extremity: Right absent median sensory response at the thumb and prolonged latency median nerve motor response consistent with moderate to severe carpal tunnel. Left prolonged latency of the median motor and sensory responses consistent with moderate left carpal tunnel. Coding Level of Care Code Off vis,new,level 3 Diagnoses Carpal tunnel syndrome, bilateral G56.03 Assessment and Plan Assessment and Plan (1) Carpal tunnel syndrome, bilateral: Status: Acute Medications: New folic acid 1 mg PO BID methotrexate sodium PO 5XW Plan EMG shows that she has severe carpal tunnel in the right wrist. Because of the severity and how long it has bothered her we recommend going forward with the carpal tunnel surgery. Explained the surgery to the patient and what the procedure would be like. Risk benefits and alternative of surgery including risk of bleeding infection nerve artery tissue damage need for further surgery continued pain incisional hypersensitivity and continued symptoms are risk, I explained is not uncommon to have soreness in the area for 3 to 4 months after the surgery, explained most people do not need therapy unless the fingers get really stiff, then she would need to go to physical therapy, she is able to stretch out the fingers and make a fist, doing this right away tends to make recovery quicker, cannot lift anything over 0.5pound for the first 2 weeks, then 5 pounds for 1 week. She should be prepared for 6 weeks of restrictions with her job since she does lift a lot. If she would like to have the other wrist done at a later point she could go forward with that. She does have rheumatoid arthritis and is on methotrexate which she can continuethrough surgery however I would like to her to stop her Cimzia 4 weeks before surgery her next dose will be 12/29/2023 as this is given every 2 weeks she can take this dose but then will hold the medication until 2 weeks postoperatively we will tentatively schedule surgery February 04, 2024. I did instruct her to discuss holding this medication and make sure is okay with Dr. Conley when shesees her in the beginning of January. Explained the surgery is out patient procedure and she would need a ride home after surgery. Follow up in 2 weeks postop or sooner if pain, swelling, numbness or associated symptoms, or concerns develop. All questions answered. Patient in agreement of plan. 12/18/23 0922 <Electronically signed by Elia Fair DO> Date Elia Fair DO Cosigner Signature: Date (if applicable) I have examined the patient and the H&P has been reviewed. There are no clinicalchanges since date of exam. 02/04/24711 <Electronically signed by Elia Fair DO> Cosigner Signature (if applicable): CC: Dr. Elia Fair, ; Dr. Kelli Lance, DO~ Signed [facility] Work Phone: Hospital course Narrative No data available for this section [facility] Discharge instructions No data available for this section [facility] Progress note No data available for this section [facility] reason for referral (narrative)No reason for referral information availableMain [facility] Work Phone: Chief Complaint and Reason for Visit Chief Complaint RIGHT WRIST Right Endoscopic Carpal Tunnel Release Right Endoscopic Carpal Tunnel Release Reason for Visit Carpal tunnel syndro me, bilateral Chief Complaint Admit Date RIGHT SHOULDER January 04, 2025 9:0 2am RM 2 January 04, 2025 9:1 7am Pain February 27, 2025 7:28a m Reason for Visit Admit Date Lupus January 04, 2025 9:0 2am Rheumatoid arthritis January 04, 2025 9: 02am Shoulder pain, right January 04, 2025 9: 02am Chief Complaint Admit Date RIGHT SHOULDER January 04, 2025 9:0 2am RM 2 January 04, 2025 9:1 7am Pain February 27, 2025 7:28a m RIGHT SHOULDER March 08, 2025 11:03 am Chief Complaint Admit Date RIGHT SHOULDER January 04, 2025 9:0 2am RM 2 January 04, 2025 9:1 7am Pain February 27, 2025 7:28a m RIGHT SHOULDER March 08, 2025 11:03 am RIGHT SHOULDER March 15, 2025 8:55a m Reason for Visit Admit Date Lupus January 04, 2025 9:0 2am Rheumatoid arthritis January 04, 2025 9: 02am Shoulder pain, right January 04, 2025 9: 02am Nontraumatic rotator cuff tear March 08, 2025 11:03am Lupus March 15, 2025 8:55a m Nontraumatic rotator cuff tear March 15, 2025 8:55am Rheumatoid arthritis March 15, 2025 8:55 am Shoulder pain, right March 15, 2025 8:55 am Advance Directives No Advanced Directives Records Found Advance Directive Response Recorded Date/ Time Living Will No January 28, 2024 8:06am Power of Electrical Technician Instructor No January 27 8:06am Summary Purpose Family History No Family History Records Found Additional Source Comments Patient Care team informatio n (unrecognized section and content) Team Status: Active Member Role Status Dates Dr. Kelli Lance DO Primary Care Provider Active Team Status: Inactive Member Role Status Dates Dr. Elia Fair DO Attending Provider Active Team Status: Active Member Role Status Dates Dr. Elia Fair DO Attending Provid er, Referring Provider, Other Provider Active Dr. Kelli Lance DO Primary Care Provider Active Team Status: Inactive Member Role Status Dates Dr. Elia Fair DO Attending Provider, Referring Provider Active Dr. Kelli Lance DO Primary Care Provider Active Team Status: Inactive Member Role Status Dates Dr. Kelli Lance DO Primary Care Provider Active Start: January 04, 2025 End: January 04, 2025 Dr. Kelli Lance DO Referring Provider Active Start: January 04, 2025 End: January 04, 2025 Dr. Elia Fair DO Attending Provider Active Start: January 04, 2025 End: January 04, 2025 Team Status: Inactive Member Role Status Dates Dr. Kelli Lance DO Primary Care Provider Active Start: January 04, 2025 End: January 04, 2025 Dr. Curry Castrejon MD Attending Provider Active S tart: January 04, 2025 End: January 04, 2025 Team Status: Inactive Member Role Status Dates Dr. Kelli Lance DO Primary Care Provider Active Start: February 27, 2025 End: February 27, 2025 Dr. Elia Fair DO Attending Provider Active Start: February 27, 2025 End: February 27, 2025 Dr. Elia Fair DO Referring Provider Active Start: February 27, 2025 End: February 27, 2025 Team Status: Inactive Member Role Status Dates Dr. Kelli Lance DO Primary Care Provider Active Start: March 08, 2025 End: March 08, 2025 Dr. Kelli Lance DO Referring Provider Active Start: March 08, 2025 End: March 08, 2025 Dr. Elia Fair DO Attending Provider Active Start: March 08, 2025 End: March 08, 2025 Team Status: Inactive Member Role Status Dates Dr. Kelli Lance DO Primary Care Provider Active Start: March 15, 2025 End: March 15, 2025 Dr. Kelli Lance DO Referring Provider Active Start: March 15, 2025 End: March 15, 2025 Dilip Hope MD Attending Provider Active St art: March 15, 2025 End: March 15, 2025 INFORMATION SOURCE (unrecogn ized section and content) DATE CREATED AUTHOR 04/01/2024 [facility] ([place]) DATE CREATED AUTHOR AUTHOR'S ORGANIZ ATION 03/05/2025 [facility] DATE CREATED AUTHOR AUTHOR'S ORGANIZ ATION 04/17/2025 [facility] Goals (unrecognized section and content) Goals may be documented in a n alternate section FOR RECORDS PERTAINING TO PATIENTS WHO ARE OR HAVE BEEN ENROLLED IN A CHEMICAL DEPENDENCY/SUBSTANCEABUSE PROGRAM, SOME INFORMATION MAY BE OMITTED. This clinical summary was aggregated from multiple sources. Caution should be exercised in using it in the provision of clinical care. This summary normalizes information from multiple sources, and as a consequence, information in this document may materially change the coding, format and clinical context of patient data. In addition, data may be omitted in some cases. CLINICAL DECISIONS SHOULD BE BASED ON THE PRIMARY CLINICAL RECORDS. [facility]. provides no warranty or guarantee of the accuracy or completeness of information in this document.
[2025-04-21] MEDS: Lactated Ringers 1,000 ML 15 ML IV (07:01)
--- NOTE | 2025-04-21 07:12 | PCM.HP.STD ---
HPI - General HPI Narrative ELSIE HOWE, is a 50 F who presents for right shoulder arthroscopy, subacromial decompression, rotator cuff repair (SS and subscap), biceps tenodesis, dermal allograft augmentation. no change to h and p. right shoulder marked. rab, post op instructions, narcotic counselling. ok to proceed. MR#: [id number] Acct: [id number] Name: ELSIE HOWE PO Rep #: [id number] : 1975 Provider: Dr. Dilip Hope MD Age/Sex: 50/F Location: [facility] Status: Signed Intake Vital Signs 01/04/2509:08 03/15/2508:58 Height 5 ft 4 in 5 ft 4 in Weight: 183 lb 2 oz 180 lb BMI 31.4 30.9 Intake Visit Reasons: RIGHT SHOULDER Chief Complaint: Right shoulder pain Accompanied by: Self Is patient in pain?: Yes Pain scale (1-10): 8 Allergies No Known Allergies Allergy (Verified 03/15/25 09:00) Medications ?Medication ?Instructions ?Recorded ?Confirmed ?Type certolizumab pegol 400 mg/2 mL 200 mg subcut Q2W 12/18/23 03/15/25 History (200 mg/mL x2) subcutaneous syringe kit ([employer]) Held on 03/10/24. Instructions: Resume on 03/25/24. folic acid 1 mg tablet 2 mg PO DAILY 12/18/23 03/15/25 History methotrexate sodium 2.5 mg tablet 12.5 mg PO BONILLA 12/18/23 03/15/25 History prednisone 10 mg tablet 10 mg PO QDAY 01/04/25 03/15/25 History tramadol 50 mg tablet 50 mg PO TID PRN 01/04/25 03/15/25 History Have you fallen in the past year?: No PFSH Medical History Wears contact lenses Post-menopausal Anxiety Alcohol use Rheumatoid arthritis Lupus Smoker History of edema Surgical History History of carpal tunnel surgery of right wrist Family History Grandmother Arthritis Social History household members: other details: Roommate Smoking Status: Current every day smoker tobacco type: e-cigarettes Smokeless tobacco user: other alcohol intake: current alcohol intake frequency: a few times a week HPI RIGHT SHOULDER Details: This documentation accurately reflects the service provided and the decisions made by me, Dr. Dilip Hope MD 03/15/25 0830. Part of today?s visit was documented by [ ], acting as scribe. ELSIE HOWE is a 50 year old F here today for right shoulder pain and a rotator cuff tear and patient with rheumatoid arthritis and lupus. Has tried PT exercises and cortisone injections. This has been 7 years of pain. The patient's pain is anteriorly and laterally definitely worse at night. 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 Has tried many years of conservative management is desiring surgical solution at this point. per Dr. Fair notes Patient is taking prednisone and Tramadol PRN for pain flare ups from her Lupus and Rheumatoid arthritis. She states that 10 years ago she fell and thinks she may have tore something in her shoulder then and her pain has gotten worse over time. She feels that her pain is in the joint. She states that she had had an MRI of it as well cortisone injections. Her MRI was at [facility] who were also the ones who gave her the injection but since she has been seeing Dr. Conley she has taken over doing the cortisone injections. Her last injection was 8 months to a year ago. She denies recent imaging of the shoulder. She denies previous surgery on the shoulder. Supplemental Info 02/27/2025 MRI right shoulder: Advanced degenerative arthropathic changes of the acromioclavicular joint with subacromial impingement. Supraspinatus tendonitis with full thickness tear. Subscapularis tendonitis with partial thickness tear. Infraspinatus tendonitis. Tear on top of tendonitis of the long head of biceps tendon. Glenohumeral degenerative arthropathy with joint effusion subcoracoid and subacromial/subdeltoid bursitis. 01/04/2025 x-ray right shoulder: No acute findings there is faint spurring at the inferior humeral head 12/06/2023 EMG bilateral upper extremity: Right absent median sensory response at the thumb and prolonged latency median nerve motor response consistent with moderate to severe carpal tunnel. Left prolonged latency of the median motor and sensory responses consistent with moderate left carpal tunnel. 03/10/2024 left open carpal tunnel release: Dr. Fair 02/04/2024 right open carpal tunnel release: Dr. Fair 03/12/2019 MRI report [facility] right shoulder: No images report reads mild to moderate rotator cuff tendinosis with a 5 x 10 mm bursal surface partial tear of the distal supraspinatus tendon at the footprint involving 20 to 30% thickness. Probable recent injury to biceps simone. Small glenohumeral joint effusion. Mild to moderate subacromial subdeltoid bursitis. Mild to moderate diffuse degeneration of the labrum. Mild chronic hypertrophic changes of the AC joint which do not contact rotator cuff. [facility] Imaging Services [address] [place] [address] Shoulder min 2 Views MR#: [id number] Acct: [id number] Name: ELSIE HOWE Rep #: [id number] : 1975 F 49 From: Chris Gonzalez MD PCP: Dr. Olya Rodgers DO Status: DEP AMB Study: Shoulder min 2 Views Date of Exam: 01/04/25 Exam# [id number] Ordering Dr: Elia Fair DO PROCEDURE: SHOULDER MIN 2 VIEWS 01/04/2025 REASON FOR EXAM: CHRONIC PAIN TECHNIQUE: Four views of the right shoulder COMPARISON: None available FINDINGS: No fracture or dislocation. The joint spaces appear within limits. Minimal spurring at the inferior humeral head. Mild inferior spurring suggested AC joint. The visualized right lung is clear. RAD/Shoulder min 2 Views IMPRESSION: Mild acromioclavicular and minimal glenohumeral joint osteoarthrosis. Reading Location: [facility] Imaging Services [address] [place] [address] Upper Ext Joint Only(Routine) MR#: [id number] Acct: [id number] Name: ELSIE HOWE Rep #: [id number] : 1975 F 50 From: Semaj Shepard MD PCP: Dr. Olya Rodgers DO Status: REG CLI Study: Upper Ext Joint Only(Routine) Date of Exam: 02/27/25 Exam# [id number] Ordering Dr: Elia Fair DO PROCEDURE: UPPER EXT JOINT ONLY(ROUTINE) 02/27/2025 REASON FOR EXAM: PAIN TECHNIQUE: MRI of the upper Extremity. Multiplanar and multisequence images were obtained without IV contrast administration. COMPARISON: COMPARISON : FINDINGS: The supraspinatus tendon shows intrasubstance high signal with total interruption of its fibers forming a gap measuring about 3.6 cm in width. Thickening and intrasubstance high signal of the subscapularis tendon with partial fibers interruption. Intrasubstance high signal of the infraspinatus tendon with no evidence of complete fibers interruption. The teres minor tendon appears intact. High signal of the long head of biceps tendon with ill definition intra-articular segment. Fluid signal distending its sheath. No obvious glenoid labral tears. Advanced degenerative arthropathic changes of the acromioclavicular joint evident by marginal osteophytic lipping, cortical irregularities and subcortical marrow edema of its opposing articular surfaces with hypertrophied edematous joint capsule. Marginal lipping of the glenohumeral articular surface with mild superior subluxation of the humeral head. Mild glenohumeral joint effusion Fluid signal distending the subcoracoid and subacromial/subdeltoid bursa. Thickening and edema signal of the rotator interval capsule and inferior glenohumeral ligament. Focal cortical irregularities and subcortical pseudocysts & marrow edema of the humeral head/greater tuberosity. No marrow infiltrative lesions. The neurovascular bundles appear unremarkable. 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 Supraspinatus tendonitis with full thickness tear. Subscapularis tendonitis with partial thickness tear. Infraspinatus tendonitis. Tear on top of tendonitis of the long head of biceps tendon. Glenohumeral degenerative arthropathy with joint effusion & subcoracoid and subacromial/subdeltoid bursitis. Reading Location[facility] Coding Level of Care Code Off vis,est,level 4 Diagnoses Nontraumatic complete tear of right rotator cuff M75.121 Laterality: right Rotator cuff tear extent: complete Chronic right shoulder pain M25.511; G89.29 Chronicity: chronic Rheumatoid arthritis involving right shoulder, unspecified whether rheumatoid factor present M06.9 Laterality: right Rheumatoid arthritis location: shoulder Rheumatoid factor presence: unspecified presence Lupus M32.9 Assessment and Plan Assessment and Plan (1) Nontraumatic rotator cuff tear: Status: Acute Qualifiers: Laterality: right Rotator cuff tear extent: complete Qualified Code(s): M75.121 - Complete rotator cuff tear or rupture of right shoulder, not specified as traumatic Plan: 50-year-old female with a rotator cuff tear of the right side as well as tearing of the biceps and impingement syndrome. The patient would be at high risk of not healing if we are to proceed with surgery therefore consideration and discussed with the patient going ahead with an allograft dermal patch for augmented healing potential. Patient understands wished to go ahead with surgery in the form of right shoulder arthroscopy, subacromial decompression, rotator cuff repair (SS and subscap), biceps tenodesis, dermal allograft augmentation. Pros and cons risks and benefits were discussed with the patient including but not limited to infection, pain, stiffness, bleeding, damage to surrounding structures, neurovascular injury, recurrence or retear, failure or wear of hardware or fixation, instability, fracture, deep vein thrombosis and pulmonary embolism, anesthetic risks, , patient dissatisfaction, need for further surgery and other risks. Patient understood and wished to proceed with surgery, and signed the informed consent documentation. Patient counselled on non-operative and operative means of treating shoulder pain. Conservative options include but not limited to: 1. Rest and Activity Modification: Giving your shoulder time to heal by avoiding movements that cause pain can help. This may involve limiting overhead activities or heavy lifting. 2. Physical Therapy: A physical therapist can guide you through exercises that strengthen the muscles around the shoulder, improve flexibility, and reduce strain on the rotator cuff tendon. 3. Ice and Heat Therapy: Applying ice to the shoulder can help reduce swelling and pain, especially after activity. Heat can be helpful to relax tense muscles and improve blood flow before exercises. 4. Anti-Inflammatory Medications: [id number] medications like ibuprofen or naproxen can help reduce pain and inflammation in the tendon. 5. Corticosteroid Injections: If the pain is more severe, a steroid injection can reduce inflammation in the shoulder and provide relief for a longer period. 6. Platelet-Rich Plasma (PRP) Injection: This treatment involves using your own blood to promote healing in the tendon. The plasma is rich in growth factors that can encourage tissue repair. 7. TENS (Transcutaneous Electrical Nerve Stimulation): This therapy uses a small electrical current to help manage pain and promote healing by stimulating nerves. (2) Shoulder pain, right: Status: Acute Qualifiers: Chronicity: chronic Qualified Code(s): M25.511 - Pain in right shoulder; G89.29 - Other chronic pain (3) Rheumatoid arthritis: Status: Acute Qualifiers: Laterality: right Rheumatoid arthritis location: shoulder Rheumatoid factor presence: unspecified presence Qualified Code(s): M06.9 - Rheumatoid arthritis, unspecified Comment: ON MED (4) Lupus: Status: Acute Clinical Quality Measures Falls Risk Screening/Assistive Devices Have you fallen in the past year?: No Ortho Exam General General: Yes no acute distress Neurologic: Yes alert and Yes oriented x3 Psychologic: Yes reasonable and appropriate Right Shoulder Skin/Wound: Yes CDI, No ecchymosis, No erythema and No swelling Testing: Positive Hawkin's, Neer's, Speed's, TTP Biceps, AROM-External Rotation at side 0-60, empty can and belly press normal; Negative TTP AC Joint, Drop Arm, cross arm or scapular winging SHOULDER: normal motor and sens to ax nerve, and MRU and AIN/PIN Active forward elevation 170 degrees mild crepitus. Mild pain to the anterior lateral aspect of the shoulder. Strength in forward elevation 4/5 strength in external rotation 5/5. [facility] Medical History Wears contact lenses Post-menopausal Anxiety Alcohol use Rheumatoid arthritis Lupus Smoker History of edema Home Medications ?Medication ?Instructions ?Recorded ?Last Taken ?Type certolizumab pegol 400 mg/2 mL 200 mg subcut Q2W 12/18/23 03/28/25 History (200 mg/mL x2) subcutaneous syringe kit (Maria) Held on 03/10/24. Instructions: Resume on 03/25/24. folic acid 1 mg tablet 2 mg PO DAILY 12/18/23 Unknown History methotrexate sodium 2.5 mg tablet 12.5 mg PO BONILLA 12/18/23 03/28/25 History prednisone 10 mg tablet 10 mg PO QDAY PRN RA 01/04/25 Unknown History tramadol 50 mg tablet 50 mg PO TID PRN pain 01/04/25 Unknown History Allergy/AdvReac Type Severity Reaction Status Date / Time No Known Allergies Allergy Verified 04/21/25 06:57 Family History Grandmother Arthritis Surgical History (Updated 04/07/25 @ 08:09 by Kristin Brown) History of carpal tunnel surgery of left wrist History of carpal tunnel surgery of right wrist Social History household members: other details: Roommate Smoking Status: Current every day smoker tobacco type: e-cigarettes Smokeless tobacco user: other alcohol intake: current alcohol intake frequency: a few times a week Vital Signs Vital Signs Vital Signs: 04/21/25 06:58 04/21/25 06:58 Temperature 98.4 F Temperature Source Temporal Pulse Rate 84 Respiratory Rate 18 Respiratory Pattern Normal Blood Pressure 141/86 H Blood Pressure Mean 104 Blood Pressure Source Monitor Blood Pressure Position Sitting Blood Pressure Location Left Forearm Pulse Ox 98 Oxygen Delivery Method Room Air Weight Weight: 182 lb 15.739 oz Body Mass Index (BMI) 31.4
--- NOTE | 2025-04-21 07:45 | PCM.PRE.AN2 ---
ASA Classification* ASA Classification ASA Classification: 2 Assessment & Plan Anesthesia* Anesthesia Assessment Anesthesia Assessment: Discussed sedation and/or anesthesia options, risks, benefits, and alternatives with patient/parents/legal guardian/POA. Questions invited. The patient/parents/legal guardian/POA seems to understand and agrees to proceed with anesthesia plan. Reviewed the physical assessment, medical history, allergy history and patient home medications list prior to surgery/procedure/anesthetic and documented any changes. Performed airway and anesthesia risk assessments. Anesthesia Type Anesthesia Type: General (Discussed GA with endotracheal tube.) and Block (We discussed right interscalene ultrasound-guided nerve block for postoperative pain. We discussed the risks of pneumothorax, injury to the nerves, bleeding, infection, lack of efficacy, allergic reaction.) History Source History Obtained from:: Patient and Chart Anesthesia Focused Assessment* Temperature: 98.4 F Pulse Rate: 84 Blood Pressure: 141/86 Respiratory Rate: 18 Pulse Ox: 98 Oxygen Delivery Method: Room Air Airway Assessment Mouth opens: >3 cm Mallampati Score: I Teeth Condition: Intact Neck Range of motion (ROM): Full ROM Labs Anesthesia Preop lab: CBC WBC 12.6 K/mm3 (4.4-11.0) H 06/11/12 09:43 06/11/12 RBC 4.45 M/mm3 (4.2-5.4) 06/11/12 09:43 06/11/12 Hgb 12.8 g.dL (12.0-15.0) 06/11/12 09:43 06/11/12 Hct 38.5 % (37-47) 06/11/12 09:43 06/11/12 Plt Count 322 K/mm3 (150-450) 06/11/12 09:43 06/11/12 CHEMISTRY Potassium 3.8 mmol/L (3.5-5.1) 06/11/12 09:43 06/11/12 Sodium 137 mmol/L (136-145) 06/11/12 09:43 06/11/12 BUN 19 mg/dL (7-18) H 06/11/12 09:43 06/11/12 Creatinine 0.8 mg/dL (0.6-1.0) 06/11/12 09:43 06/11/12 Glucose 109 mg/dL (70-110) 06/11/12 09:43 06/11/12 COAG Pre-Assessment Diagnosis/Proposed Procedure Planned Operative Procedure(s): (R) Right shoulder Arthroscopy, subacromial decompression, rotator cuff repair, biceps tenodesis, dermal allograft augmentation Anesthesia History 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 When Was Last Pacemaker Check QUESTION #4 FULL TEXT: You/Your Family Experience fever (hyperthermia) with Anesthesia Last Oral Intake Last Oral intake: Last Oral Intake NPO since 20:00 04/21/25 06:58 Meds taken in AM with sips of No 04/21/25 06:58 water? Meds patient instructed to take am of surgery PONV PONV - supply chain design manager: PONV - supply chain design manager Female Yes 04/07/25 08:09 HX of Motion Sickness No 04/07/25 08:09 HX of N/V After Surgery No 04/07/25 08:09 Non-Smoker No 04/07/25 08:09 Duration of Surgery greater Yes 04/07/25 08:09 than 60 minutes Number of Risk Factors 2 04/07/25 08:09 PONV Score Moderate Risk 04/07/25 08:09 Height & Weight Height & Weight: Anesthesia: Height & Weight Height 5 ft 4 in 04/21/25 06:58 Weight: 83 kg 04/21/25 06:58 Body Mass Index (BMI) 31.4 04/21/25 06:58 Respiratory Assessment Respiratory Assessment - supply chain design manager: Respiratory Tract Infection Hx - supply chain design manager Hx Respiratory Tract Infection No 04/07/25 08:09 STOP Sleep Apnea STOP Sleep Apnea - supply chain design manager: STOP Sleep Apnea - supply chain design manager Hx Hypertension No 04/07/25 08:09 Hx Sleep Apnea No 04/07/25 08:09 CPAP BIPAP Do you snore loudly (louder No 04/07/25 08:09 than talking or can be heard Do you often feel tired/ No 04/07/25 08:09 fatigued/ sleepy during daytime? Has anyone observed you stop No 04/07/25 08:09 breathing during sleep? STOP Results Negative 04/07/25 08:09 QUESTION #5 FULL TEXT : Do you snore loudly (louder than talking or can be heard through closed doors)? Tobacco Use History Tobacco Use History - supply chain design manager: Tobacco Use History - supply chain design manager Tobacco Use Smoking Status Current every day smoker 04/07/25 08:09 Hx Tobacco Use Yes 04/07/25 08:09 Years Smoking Packs Smoked per Day Smoking Cessation Date was within the last 15 years Hx Smoking Cessation Date Hx Smoking Cessation Counseling Hematologic Medial History Hematologic Hx - supply chain design manager: Hematologic Medical Hx - supervisor [place] Hx of Blood Transfusion No 04/07/25 08:09 Hx of Transfusion in last 3 No 04/07/25 08:09 Months Date of Last Transfusion (if within last 3 months) Ever experience any problems No 04/07/25 08:09 with transfusion(s)? Specify any problems Hx of Preganancy in last 3 No 04/07/25 08:09 Months Nurse Filling Out Transfusion VCHRISTIN 04/07/25 08:09 & Questions: Date: 04/07/25 04/07/25 08:09 Time: 08:10 04/07/25 08:09 Patient unable to answer at this time (ie. confused, unrespo /Reproduction History /Reproductive History - supply chain design manager: /Reproductive Hx- supply chain design manager Hx Now No 04/07/25 08:09 Gestational Age (in weeks): EDC: Hx Hx Para Hx Section SAB No 04/07/25 08:09 Active Medications Active Medications: Current Medications Generic Name Dose Route Start Last Admin Trade Name Freq PRN Reason Stop Dose Admin Cefazolin Sodium 2 gm/ Sodium 110 mls @ 200 mls/hr 04/21/25 07:30 Chloride IV 04/21/25 08:02 INTRAOP ONE Lactated Ringer's 1,000 mls @ 15 mls/hr 04/21/25 06:45 04/21/25 07:01 IV 15 mls/hr .Q48H MINE Administration PFSH Medical History Wears contact lenses Post-menopausal Anxiety Alcohol use Rheumatoid arthritis Lupus Smoker History of edema Home Medications ?Medication ?Instructions ?Recorded ?Last Taken ?Type certolizumab pegol 400 mg/2 mL 200 mg subcut Q2W 12/18/23 03/28/25 History (200 mg/mL x2) subcutaneous syringe kit (Cimzia) Held on 03/10/24. Instructions: Resume on 03/25/24. folic acid 1 mg tablet 2 mg PO DAILY 12/18/23 Unknown History methotrexate sodium 2.5 mg tablet 12.5 mg PO BONILLA 12/18/23 03/28/25 History prednisone 10 mg tablet 10 mg PO QDAY PRN RA 01/04/25 Unknown History tramadol 50 mg tablet 50 mg PO TID PRN pain 01/04/25 Unknown History Allergy/AdvReac Type Severity Reaction Status Date / Time No Known Allergies Allergy Verified 04/21/25 06:57 Family History Grandmother Arthritis Surgical History (Updated 04/07/25 @ 08:09 by Kristin Brown) History of carpal tunnel surgery of left wrist History of carpal tunnel surgery of right wrist Social History household members: other details: Roommate Smoking Status: Current every day smoker tobacco type: e-cigarettes Smokeless tobacco user: other alcohol intake: current alcohol intake frequency: a few times a week Review of Systems (Anesthesia) ROS Narrative System reviewed and no additional complaints, except as documented. Physical Exam Const alert and oriented x3 HEENT dentition normal Neuro oriented x3 and moves all extremities
[2025-04-21] MEDS: Epinephrine (1 mg/ml) 1 MG/ML VIAL (08:54)
--- NOTE | 2025-04-21 11:10 | PCM.OPRPT ---
Problems Associated Problem List Diagnoses (1) Shoulder pain, right: (2) Nontraumatic rotator cuff tear: (3) Superior labrum [id number] (SLAP) tear of right shoulder: Procedures Musculoskeletal [id number]: Other Procedure See Report Operative Report (Standard) Operative Information Date of Procedure: 04/21/25 Pre-Operative Diagnosis: R shoulder rotator cuff tear, slap tear Post-Operative Diagnosis: same Surgery/Procedure Performed: R shoulder arthroscopy, subacromial decompression, rotator cuff repair, biceps tenodesis, dermal allograft augmentation of the rotator cuff repair front desk assistant: Yes Franchise Sales Director: Lydia Tasks completed by first press operator: Retracting Additional print shop assistant?: No Type of Anesthesia: Block,Regional and General RN Documented Start/Stop Times: Operation Date: 04/21/25 08:15 Case Time Into Pre-Op 04/21/25 06:32 Anesthesia Start 04/21/25 08:15 Into Room 04/21/25 08:15 Out of Pre-Op 04/21/25 08:15 Procedure Start 04/21/25 08:40 Procedure Start Time: 08:40 Procedure Stop Time: 11:18 Select all DRAINS/GRAFTS/IMPLANTS that apply: Graft Graft details: arthrex dermal allograft cuff mend Estimated Blood Loss: 50 Specimen collected: No Description of surgery: Patient brought to the operating room theater. Placed supine on the table. General anesthesia induced. All bony prominences padded. 2 g IV Ancef administered prior to the start of the case. Patient transferred right side up lateral decubitus beanbag positioner. Axillary roll used. SCDs on the legs. Upper extremity prepped and draped in the usual sterile fashion with chlorhexidine-based prep solution allowing over 3 minutes drying time prior to draping. Arm in 40 degrees of abduction with 10 pounds of inline traction. Preoperative timeout performed to confirm the site patient and the surgery. Began by inserting the arthroscope through a standard posterior arthroscopy portal. A full diagnostic arthroscopy. Used inside out spinal needle localization through the rotator interval. Cartilage on the glenoid and humeral head was well-preserved. No loose bodies. Axillary recess was normal. There is a full-thickness tear retracted to the level of the mid joint slightly more anteriorly as depicted on the MRI. There is a SLAP tear as well as hypertrophic and longitudinal tearing of the long head of the biceps. I performed an intra-articular biceps tenotomy to plan for later tenodesis. There is upper border tearing complete thickness of the subscapularis. I debrided the stump of the remaining small amount of biceps tendon at the labrum superiorly as well as anteriorly this was stable after release of the tendon. I then used a Arthrex power pick device at the repair site planned for the subscapularis repair. I inserted the cannula. I used 2 Arthrex fiber link sutures. I then inserted these into a 4.75 mm bio composite Arthrex swivel lock anchor at the superior border of the subscapularis. This achieved good solid repair I also used the supplementary link suture for a third point of fixation. I then inserted the arthroscope into the subacromial space. I completed a full and meticulous bursectomy. I did a subacromial decompression for 3 mm using a high-speed uriah all the way to the AC joint. I decorticated slightly the greater tuberosity at the site for planned repair. I used Arthrex power pick device to stimulate multiple areas for healing at the greater tuberosity. I assessed the cuff mobility is quite poor therefore I elected to do a single row repair in the Arthrex dermal allograft on top of that to aid in healing and bridge onto the greater tuberosity. I put 2 Arthrex swivel lock anchors 4.75 mm at the articular margin superiorly with good spread and I used Arthrex fiber tape in an inverted horizontal mattress configuration using 4 points of fixation there and 2 anchors this achieved good purchase into the bone and good fixation of the tendon then I also used the stay suture for third point of fixation at both anchors. The more posterior anchor I inserted this at the junction of the supraspinatus and infraspinatus to close the interval. I then open the graft. I kept this in an appropriate orientation marking the superior aspect of the graft. I cut the graft 2.5 cm from medial to lateral and 2 cm from anterior to posterior. I inserted the stay sutures at all 4 corners and then attach the graft to the torsion spring coiling machine setter. I then made a third lateral portal using the Arthrex passport cannula. I inserted the graft through this and placed this superiorly just medial to the repair site at the rotator cuff. I then placed 2 horizontal mattress all suture fiber stitch anchors at the medial aspect of the dermal allograft. I cut the suture short this achieved good purchase into the tendon and no dog ears. I then remove the torsion spring coiling machine setter and then using the fiber link sutures that were anterior-lateral and posterolateral corners I then inserted these into the Arthrex push lock anchors as a standard for the kit. This achieved good purchase again into the bone the graft was appropriately positioned. I was not able to close the interval between the supraspinatus and the subscapularis, but achieved good closure of the interval between the supraspinatus and the infraspinatus. Arthroscopy pictures taken and saved onto the system. I then turned my attention to the subpectoral biceps tenodesis. I made a small 2 inch incision centered over the proximal anterior medial aspect of the humerus. I carried the dissection down through skin and subcutaneous tissue achieving meticulous hemostasis. I identified the interval I retracted the cephalic vein laterally. I incised the fascia in line with the skin incision. Identified the long head of the biceps tendon delivered this through the incision. I shorten this. I used the link suture in a luggage tag suture configuration and then passed the suture just distal from superficial to deep through the biceps tendon for a locking link configuration. I then drilled a unicortical hole in the mid aspect of the humerus. I irrigated any bone dust and then passed the free end of the suture through the Arthrex biceps tension type button and then inserted the biceps into the tunnel of the biceps and pulled on the free end to flip the biceps button and then deliver the tendon onto the repair site for unicortical repair. This was stable and solid and the suture was cut short with appropriate tension on the repair. All wounds thoroughly irrigated. Subcutaneous tissue closed with 2-0 Vicryl suture and skin with 3-0 Monocryl. Skin cleaned with wet dry dressing followed application of Steri-Strips Adaptic 4 x 4 gauze ABD dressing cloth tape with an abduction pillow sling for the upper extremity. All sponge needle and instrument counts were correct no complications plan for patient discharged home according to day surgery criteria follow-up in the office in 2 days time pendulum exercises only. cpt 47082, 20367, [id number], [id number] (for cuff augmentation), mod 22 for length and complexity of repair. Surgical Findings: as above. Complications Complications: No Admit VTE Documentation VTE Present on Admission: No VTE Mechan Device Prophylaxis: SCD's VTE Pharm Prophylaxis ordered?: No Reason prophylaxis not ordered: Treatment Not Indicated
--- NOTE | 2025-04-21 11:25 | EX.PCM.DISCH ---
Discharge Instructions Diet Discharge Diet: No restrictions Activity Discharge Activity: May Not Drive Ice area for (Minutes): 10 Lifting Restrictions: pendulums 4x/day, may remove sling at rest, no lifting. Dressing / Incision Call your doctor if your incision/area has: Continuous Slow Oozing, Sudden Increased Bleeding, Increased Pain/ Swelling, Increased Redness, Foul Smelling Discharge and Swelling at the incision site Call your doctor if you observe: Fever of 101 or Higher, Coldness, Increased Pain and Numbness or Tingling Remove Dressing in: leave in place till F/U Cleanse incision/area with: Do not get Incision Wet Additional Dressing/Incision Instructions:: ok to shower, just keep incisions dry Follow Up Care Please Follow Up With: Dilip Hope MD When: 2 days or within 2 weeks Test Results: Test results from this visit will be discussed in further detail at your follow-up appointment, if applicable. Discharge Plan Admission Attending Provider: Dilip Hope Primary Care Provider: Olya Rodgers Consulting Providers: Henrry Miller Instructions Patient Instructions: After Shoulder Arthroscopy Print Language: Palestinian Discharge Orders/Prescriptions Prescriptions: New oxycodone-acetaminophen [Endocet] 5-325 mg tablet 1 tab PO Q4H MDD 6 PRN (Reason: pain) 5 Days Qty: 30 0RF No Action Cimzia 400 mg/2 mL (200 mg/mL x 2) syringe kit 200 mg subcut Q2W Patient Comments: STOPPPED TEMPORARILY FOR SURGERY folic acid 1 mg tablet 2 mg PO DAILY methotrexate sodium 2.5 mg tablet 12.5 mg PO BONILLA tramadol 50 mg tablet 50 mg PO TID PRN (Reason: pain) prednisone 10 mg tablet 10 mg PO QDAY PRN (Reason: RA) Referrals / Follow Up: Olya Rodgers DO [Primary Care Provider] - Disposition Disposition (needs filled in before D/C Order can be placed): Home, Self Care
--- NOTE | 2025-04-21 11:29 | PCM.POST.ANE ---
Anesthesia: Postop Eval I Current Vital Signs Temperature: 97 F Pulse Rate: 72 Blood Pressure: 141/78 Respiratory Rate: 16 Pulse Ox: 100 Oxygen Delivery Method: Room Air Assessment Airway patent: Yes Spontaneous unlabored respirations: Yes Mental status: Awake and Calm nausea: No Vomiting: No Anesthesia Complication: No Fluid Hydration Crystalloid volume administer (ml): 1,000 Total IV fluid infused: 1,000 Progress Note Anesthesia document: Postop Eval 1 completed: Yes
--- NOTE | 2025-04-21 12:03 | POSTOPAN2_ITS ---
Anesthesia Postop Eval I Sum Postop Eval Completion status Anesthesia document: Postop Eval 1 completed: Yes Anesthesia Postop Eval I Summary Anesthesia Postop Eval I Summary: Anesthesia Postop Eval I: Assessment Summary Airway patent Yes 04/21/25 11:30 [email or web address] Spontaneous unlabored Yes 04/21/25 11:30 [email or web address] respirations Mental status Awake,Calm 04/21/25 11:30 [email or web address] nausea No 04/21/25 11:30 [email or web address] Vomiting No 04/21/25 11:30 [email or web address] [email or web address] Anesthesia Postop Eval I: Fluid Summary Crystalloid volume administer 1,000 04/21/25 11:30 [email or web address] (ml) Colloids volume administered ( ml) Blood Product volume administered (ml) Total IV fluid infused 1,000 04/21/25 11:30 [email or web address] Anesthesia Postop Eval I: Summary Notes Anesthesia Complication No 04/21/25 11:30 [email or web address] Anesthesia Complication Comment: Post-operative progress note Anesthesia: Postop Eval II Evaluation Mental status: Awake and Calm Pain Level: 0 nausea: No Vomiting: No Complications Anesthesia Complication: No
--- NOTE | 2025-04-21 12:03 | PCM.POSTANE2 ---
Anesthesia Postop Eval I Sum Postop Eval Completion status Anesthesia document: Postop Eval 1 completed: Yes Anesthesia Postop Eval I Summary Anesthesia Postop Eval I Summary: Anesthesia Postop Eval I: Assessment Summary Airway patent Yes 04/21/25 11:30 [email or web address] Spontaneous unlabored Yes 04/21/25 11:30 [email or web address] [email or web address] respirations Mental status Awake,Calm 04/21/25 11:30 [email or web address] nausea No 04/21/25 11:30 [email or web address] Vomiting No 04/21/25 11:30 [email or web address] Anesthesia Postop Eval I: Fluid Summary Crystalloid volume administer 1,000 04/21/25 11:30 [email or web address] (ml) Colloids volume administered ( ml) Blood Product volume administered (ml) Total IV fluid infused 1,000 04/21/25 11:30 [email or web address] [email or web address] Anesthesia Postop Eval I: Summary Notes Anesthesia Complication No 04/21/25 11:30 [email or web address] Anesthesia Complication Comment: Post-operative progress note Anesthesia: Postop Eval II Evaluation Mental status: Awake and Calm Pain Level: 0 nausea: No Vomiting: No Complications Anesthesia Complication: No
== END 2025-04-21 12:45 | disposition home or self-care (01) ==
LOC: SDC 06:24 → AC 06:25
PROVIDERS: PCP Family Medicine; Referring Provider Orthopaedic Surgery Sports Medicine; Visit Provider Orthopaedic Surgery Sports Medicine
PROC: (CPT 29805; principal; 2025-04-21 08:00)
DX: S43.431A Superior glenoid labrum lesion of right shoulder, initial encounter (principal); M06.9 Rheumatoid arthritis, unspecified; M32.9 Systemic lupus erythematosus, unspecified; M75.41 Impingement syndrome of right shoulder; M75.21 Bicipital tendinitis, right shoulder; M75.101 Unspecified rotator cuff tear or rupture of right shoulder, not specified as traumatic; S46.111A Strain of muscle, fascia and tendon of long head of biceps, right arm, initial encounter; W19.XXXA Unspecified fall, initial encounter; F17.290 Nicotine dependence, other tobacco product, uncomplicated; Z79.899 Other long term (current) drug therapy
CPT/HCPCS: 23430; 29827; 29826; 64415; 93005; C1713; J2405